=== PATIENT | female | born 1930 | race Caucasian/White ===

== ENCOUNTER 2016-07-17 09:53 | Inpatient (IN) | payer MEDICARE ==
[2016-07-17] MEDS ORDERED: Ondansetron INJ* 2 MG/ML VIAL IV ONE (10:48)
[2016-07-17] MEDS ORDERED: NS 0.9% 1000 ML* 1,000 ML IV SCH ×2 (11:00→13:00)
[2016-07-17 11:10] LABS: Albumin 3.9 g/dL (3.2-5.2); BUN/Creatinine Ratio 27.4 (8-20); C Reactive Protein 115.16 mg/L (< 5.00); Calcium 9.7 mg/dL (8.6-10.3); EGFR African American 35.5 (>60); EGFR Non-African American 27.6 (>60); Globulin 3.3 g/dL (2-4); Potassium 5.2 mmol/L (3.5-5.0); Total Bilirubin 0.8 mg/dL (0.2-1.0); Total Protein 7.2 g/dL (6.4-8.9)
[2016-07-17 11:18] LABS: Troponin I 0.06 ng/mL (<0.04)
--- NOTE | 2016-07-17 11:40 | RAD ---
INDICATION: Cough COMPARISON: February 07, 2016 TECHNIQUE: An AP portable view obtained at 1115 hours is submitted. FINDINGS: Bones/Soft Tissues: There are no acute bony findings. Cardiomediastinal: The cardiomediastinal silhouette is normal. Lungs: There is hyperinflation with chronic interstitial change. There may be minor interstitial congestion. Pleura: There are no pleural effusions. Other: None IMPRESSION: CHRONIC LUNG FINDINGS WITH HYPERINFLATION. SUSPECT MINOR INTERSTITIAL CONGESTION
[2016-07-17 11:57] LABS: TSH (Thyroid Stimulating Horm) 4.14 mcIU/mL (0.34-5.60)
--- NOTE | 2016-07-17 11:59 | RAD ---
INDICATION: Vomiting COMPARISON: CT January 16, 2016 TECHNIQUE: Noncontrast axial source images were obtained from the hemidiaphragms to the symphysis pubis. This examination was ordered using a renal stone protocol which is performed without oral or intravenous contrast and therefore has inherent limitations when used to evaluate other intra-abdominal or intrapelvic pathology. Consider conventional contrast enhanced imaging if clinically indicated. Lung bases: There are chronic appearing interstitial changes with consolidative changes in the medial lung bases right greater than left. Suggest follow-up. There is a calcified mitral annulus. Liver: The liver is normal in size. Noncontrast imaging shows no evidence of a hepatic mass or ductal dilatation. Gallbladder: There are no calcified gallstones. There is no evidence of wall thickening or pericholecystic fluid.. Spleen: The spleen is normal in size. The noncontrast CT appearance is normal. Pancreas: Not adequately evaluated without oral intravenous contrast. Adrenal glands: No gross abnormalities. Kidneys/Bladder: Tiny bilateral nonobstructive renal calculi. Renal vascular calcifications. No CT evidence of hydronephrosis. Noncontrast imaging shows no evidence of a renal mass. The bladder is unremarkable.. Adenopathy: No gross adenopathy but evaluation is severely limited without oral or intravenous contrast. Fluid collections: There are no significant free or localized fluid collections. Vessels: There are advanced atherosclerotic changes of the aorta and iliac vessels. There is no focal aneurysm. The IVC is not well evaluated. Pelvic organs: Hysterectomy. Cystic structure right adnexa measuring 4 cm and appearing unchanged GI tract: Evaluation of the bowel is limited without oral contrast. There is a moderate-sized hiatal hernia. There are scattered diverticula. There is moderate retained stool. There is mild rectal prolapse. There are no additional specific abnormalities. Soft tissues: There is a bowel containing left inguinal hernia without incarceration/granulation. Osseous structures: There are no acute osseous findings. There are advanced degenerative changes with a scoliotic deformity. IMPRESSION: 1. Chronic appearing basilar abnormalities with basilar consolidative changes. Recommend follow-up. 2. Nonobstructive nephrolithiasis 3. 4 cm right adnexal cyst, unchanged 4. Hiatal hernia . Scattered diverticula. Moderate stool. No bowel obstruction. Mild rectal prolapse. 5. Left inguinal hernia, unchanged. 6. Hysterectomy
[2016-07-17 12:11] LABS: Hematocrit 32 % (35-47); Hemoglobin 10.3 g/dl (12.0-16.0); Mean Corpuscular HGB Conc 32 g/dl (31-36); Mean Corpuscular Hemoglobin 31 pg (27-31); Mean Corpuscular Volume 97 fL (80-97); Mean Platelet Volume 8 um3 (7.4-10.4); Red Blood Count 3.35 10^6/ul (4.0-5.4); Red Cell Distribution Width 14 % (10.5-15)
[2016-07-17 12:12] LABS: Add Diff/Slide Review? Slide Review Added; Comments Flag Yes
[2016-07-17] MEDS ORDERED: Piperac/Tazob 3.375 gm in NS* 3.375 GM/100 ML BAG IVPB ONE (12:48)
[2016-07-17] MEDS ORDERED: Ondansetron INJ* 2 MG/ML VIAL IV PRN (12:49)
[2016-07-17] MEDS ORDERED: Al Hydrox/Mg Hydrox/Simet LIQ* 30 ML UDC PO PRN (12:49)
[2016-07-17] MEDS ORDERED: Acetaminophen TAB* 325 MG PO PRN (12:49)
[2016-07-17] MEDS ORDERED: Nystatin OINT* 15 GM TOPICAL PRN (12:50)
[2016-07-17] MEDS: fentaNYL PATCH 12 MCG/HR TRANSDERM SCH (14:57)
[2016-07-17] MEDS: Heparin VIAL(*) 5000 UNITS/ML VIAL (FIVE THOUSAND) SUBCUT SCH ×2 (14:59→20:34)
[2016-07-17] MEDS: Hydrocortisone INJ* 100 MG VIAL IV SCH ×2 (14:59→23:00)
--- NOTE | 2016-07-17 15:01 | ED ---
Abelino Samayoa Auryana, scribed for Gume Wood MD on 07/17/16 at 1135 . Complex/Multi-Sys Presentation - HPI Summary HPI Summary: 85 year old female presents with overall illness. Family reports increased sleepiness and weakness, vomiting x4 starting this morning, diarrhea, and has sharp pains under her left breast ( starting 1 month ago). She states that she normally has a cough and is SOB due to COPD. Per family - patient usually walks with walker but was unable to today. She denies any blood in vomit but unknown if diarrhea had blood. She denies any chest congestion, chest pain or abdominal pain physician visit. PMHx is significant for COPD, skin cancer (on buttock without treatment), appendectomy (childhood), "stomach problems", takes zantac everyday - per family. No history of CHF or any other abdominal surgeries. - History Of Current Complaint Chief Complaint: EDWeakness Time Seen by Provider: 07/17/16 10:40 Hx Obtained From: Patient, Family/Graves Registration Specialist Onset/Duration: Gradual Onset, Still Present Timing: Constant Severity Currently: Mild Severity Initially: Mild Location: Pain At: - per family - sharp pain under the left breast but none on exam Associated Signs And Symptoms: Positive: Weakness, SOB - NML, Vomiting, Diarrhea , Other - increased sleepiness. Negative: Chest Pain - per family - states sharp pain under left breast for the last month, Abdominal Pain - Allergies/Home Medications Allergies/Adverse Reactions: Allergies Allergy/AdvReac Type Severity Reaction Status Date / Time Codeine Allergy Intermediate gets crazy Verified 06/19/16 10:43 Sulfa Drugs Allergy Mild Insomnia Verified 06/19/16 10:43 PMH/Surg Hx/FS Hx/Imm Hx Endocrine/Hematology History: Denies: Hx Diabetes Cardiovascular History: Reports: Hx Hypertension, Hx Syncope - "years ago" Denies: Hx Pacemaker/ICD, Hx Peripheral Vascular Disease Respiratory History: Reports: Hx Asthma, Hx Chronic Bronchitis, Hx Chronic Obstructive Pulmonary Disease (COPD), Hx Pneumonia, Hx Seasonal Allergies GI History: Reports: Hx Gastroesophageal Reflux Disease - ON DAILY MEDS, Hx Hiatal Hernia, Other GI Disorders - internal hemorhoids History: Reports: Other Problems/Disorders - bladder infections in past Denies: Hx Renal Disease Musculoskeletal History: Reports: Hx Arthritis, Hx Back Problems, Hx Osteoporosis, Hx Scoliosis, Other Musculoskeletal History - Torn Meniscus, degenerative disk dx Sensory History: Reports: Hx Contacts or Glasses Denies: Hx Cataracts, Hx Glaucoma, Hx Hearing Aid Opthamlomology History: Reports: Hx Contacts or Glasses Denies: Hx Cataracts, Hx Glaucoma Neurological History: Reports: Other Neuro Impairments/Disorders - PAIN CLINIC PT Denies: Hx Headaches, Hx Seizures, Hx Transient Ischemic Attacks (TIA) Psychiatric History: Denies: Hx Panic Disorder - Cancer History Cancer Type, Location and Year: Recently diagnosed skin cancer near anus Hx Chemotherapy: No Hx Radiation Therapy: No - Surgical History Surgery Procedure, Year, and Place: AGE 16 Appendectomy. 1970s HYSTERECTOMY & Hernia Repair [facility]. 2000s Cararact Right Eye [facility] Hx Anesthesia Reactions: Yes - SLOW TO WAKE UP Infectious Disease History: No Infectious Disease History: Denies: Traveled Outside the [place] in Last 30 Days - Family History Known Family History: Positive: Other - No FMHx of Breast CA - Social History Occupation: Retired Lives: With Family Alcohol Use: Occasionally Hx Substance Use: No Substance Use Type: Reports: None Substance Use Comment - Amount & Last Used: fentanyl and norcp Hx Tobacco Use: Yes Smoking Status (MU): Former Smoker Type: Cigarettes Amount Used/How Often: 1PPD 60+ YEARS Have You Smoked in the Last Year: No Review of Systems Positive: Other - increased sleepiness Eyes: Negative ENT: Negative Cardiovascular: Negative Negative: Chest Pain - none per patient Positive: Shortness Of Breath - nml, Cough - nml Positive: Vomiting, Diarrhea. Negative: Abdominal Pain Genitourinary: Negative Musculoskeletal: Negative Skin: Negative Positive: Weakness - increased Psychological: Normal All Other Systems Reviewed And Are Negative: Yes Physical Exam Triage Information Reviewed: Yes Vital Signs On Initial Exam: Initial Vitals Temp Pulse Resp BP Pulse Ox 99.8 F 109 18 101/49 86 07/17/16 10:00 07/17/16 10:00 07/17/16 10:00 07/17/16 10:00 07/17/16 10:00 Vital Signs Reviewed: Yes Appearance: Positive: Well-Appearing, No Pain Distress Skin: Positive: Warm, Skin Color Reflects Adequate Perfusion, Dry Head/Face: Positive: Normal Head/Face Inspection Eyes: Positive: EOMI, SILVIA ENT: Positive: Normal ENT inspection Neck: Positive: Supple, Nontender Respiratory/Lung Sounds: Positive: Breath Sounds Present, Rhonchi Cardiovascular: Positive: Tachycardia Abdomen Description: Positive: Nontender - non tenderness to palpation, Soft Bowel Sounds: Positive: Present, Hypoactive Musculoskeletal: Positive: Normal, Strength/ROM Intact, Other - no calf pain or tenderness. Negative: Edema Left, Edema Right Neurological: Positive: Normal, Sensory/Motor Intact, Alert, Oriented to Person Place, Time Psychiatric: Positive: Normal, Affect/Mood Appropriate - Rawson Coma Scale Coma Scale Total: 15 Diagnostics - Vital Signs Vital Signs Temp Pulse Resp BP Pulse Ox 07/17/16 10:19 109 92 07/17/16 10:18 104/45 07/17/16 10:00 99.8 F 109 18 101/49 86 - Laboratory Lab Results: Lab Results 07/17/16 07/17/16 07/17/16 Range/Units 10:35 10:35 10:35 WBC 25.0 H (3.5-10.8) 10^3/ul RBC 3.35 L (4.0-5.4) 10^6/ul Hgb 10.3 L (12.0-16.0) g/dl Hct 32 L (35-47) % MCV 97 (80-97) fL MCH 31 (27-31) pg MCHC 32 (31-36) g/dl RDW 14 (10.5-15) % Plt Count 291 (150-450) 10^3/ul MPV 8 (7.4-10.4) um3 Neut % (Auto) 94.7 H (38-83) % Lymph % (Auto) 1.4 L (25-47) % Jerome % (Auto) 3.8 (1-9) % Eos % (Auto) 0 (0-6) % Baso % (Auto) 0.1 (0-2) % Absolute Neuts (auto) 23.6 H (1.5-7.7) 10^3/ul Absolute Lymphs (auto) 0.3 L (1.0-4.8) 10^3/ul Absolute Monos (auto) 1.0 H (0-0.8) 10^3/ul Absolute Eos (auto) 0 (0-0.6) 10^3/ul Absolute Basos (auto) 0 (0-0.2) 10^3/ul Absolute Nucleated RBC 0 10^3/ul Nucleated RBC % 0 INR (Anticoag Therapy) 0.84 L (0.89-1.11) APTT 21.2 L (26.0-36.3) seconds Sodium 137 (133-145) mmol/L Potassium 5.2 H (3.5-5.0) mmol/L Chloride 99 L (101-111) mmol/L Carbon Dioxide 31 (22-32) mmol/L Anion Gap 7 (2-11) mmol/L BUN 48 H (6-24) mg/dL Creatinine 1.75 H (0.51-0.95) mg/dL Est GFR ( Amer) 35.5 (>60) Est GFR (Non-Af Amer) 27.6 (>60) BUN/Creatinine Ratio 27.4 H (8-20) Glucose 108 H (70-100) mg/dL Lactic Acid (0.5-2.0) mmol/L Calcium 9.7 (8.6-10.3) mg/dL Magnesium 2.0 (1.9-2.7) mg/dL Total Bilirubin 0.80 (0.2-1.0) mg/dL AST 25 (13-39) U/L ALT 13 (7-52) U/L Alkaline Phosphatase 70 (34-104) U/L Total Creatine Kinase 108 (10-223) U/L CK-MB (CK-2) 3.6 (0.6-6.3) ng/mL Troponin I 0.06 H* (<0.04) ng/mL C-Reactive Protein 115.16 H (< 5.00) mg/L Total Protein 7.2 (6.4-8.9) g/dL Albumin 3.9 (3.2-5.2) g/dL Globulin 3.3 (2-4) g/dL Albumin/Globulin Ratio 1.2 (1-3) Lipase 22 (11.0-82.0) U/L TSH 4.14 (0.34-5.60) mcIU/mL 07/17/16 Range/Units 10:35 WBC (3.5-10.8) 10^3/ul RBC (4.0-5.4) 10^6/ul Hgb (12.0-16.0) g/dl Hct (35-47) % MCV (80-97) fL MCH (27-31) pg MCHC (31-36) g/dl RDW (10.5-15) % Plt Count (150-450) 10^3/ul MPV (7.4-10.4) um3 Neut % (Auto) (38-83) % Lymph % (Auto) (25-47) % Jerome % (Auto) (1-9) % Eos % (Auto) (0-6) % Baso % (Auto) (0-2) % Absolute Neuts (auto) (1.5-7.7) 10^3/ul Absolute Lymphs (auto) (1.0-4.8) 10^3/ul Absolute Monos (auto) (0-0.8) 10^3/ul Absolute Eos (auto) (0-0.6) 10^3/ul Absolute Basos (auto) (0-0.2) 10^3/ul Absolute Nucleated RBC 10^3/ul Nucleated RBC % INR (Anticoag Therapy) (0.89-1.11) APTT (26.0-36.3) seconds Sodium (133-145) mmol/L Potassium (3.5-5.0) mmol/L Chloride (101-111) mmol/L Carbon Dioxide (22-32) mmol/L Anion Gap (2-11) mmol/L BUN (6-24) mg/dL Creatinine (0.51-0.95) mg/dL Est GFR ( Amer) (>60) Est GFR (Non-Af Amer) (>60) BUN/Creatinine Ratio (8-20) Glucose (70-100) mg/dL Lactic Acid 1.2 (0.5-2.0) mmol/L Calcium (8.6-10.3) mg/dL Magnesium (1.9-2.7) mg/dL Total Bilirubin (0.2-1.0) mg/dL AST (13-39) U/L ALT (7-52) U/L Alkaline Phosphatase (34-104) U/L Total Creatine Kinase (10-223) U/L CK-MB (CK-2) (0.6-6.3) ng/mL Troponin I (<0.04) ng/mL C-Reactive Protein (< 5.00) mg/L Total Protein (6.4-8.9) g/dL Albumin (3.2-5.2) g/dL Globulin (2-4) g/dL Albumin/Globulin Ratio (1-3) Lipase (11.0-82.0) U/L TSH (0.34-5.60) mcIU/mL Result Diagrams: 07/17/16 10:35 07/17/16 10:35 Lab Statement: Any lab studies that have been ordered have been reviewed, and results considered in the medical decision making process. - Radiology CXR Xray Interpretation: Positive (See Comments) - IMPRESSION: CHRONIC LUNG FINDINGS WITH HYPERINFLATION. SUSPECT MINOR INTERSTITIAL CONGESTION Radiology Interpretation Completed By: Radiologist - CT ABD/PEL CT Interpretation: Positive (See Comments) - IMPRESSION: 1. Chronic appearing basilar abnormalities with basilar consolidative changes. Recommend follow-up. 2. Nonobstructive nephrolithiasis 3. 4 cm right adnexal cyst, unchanged 4. Hiatal hernia . Scattered diverticula. Moderate stool. No bowel obstruction. Mild rectal prolapse. 5. Left inguinal hernia, unchanged. 6. Hysterectomy CT Interpretation Completed By: Radiologist - EKG 11:56 EKG Interpretation: SINUS TACHYCARDIA @ 99 BPM, NML ST SEGMENT, NO ECTOPY Complex Multi-Symp Course/Dx Course Of Treatment: NO CRITICAL CARE TIME Assessment/Plan: ADMIT HOSPITALIST STABLE - Diagnoses Provider Diagnoses: Vomiting, Weakness Discharge - Discharge Plan Condition: Stable Disposition: ADMITTED TO [facility] documentation as recorded by the Abelino campoverde Auryana accurately reflects the service I personally performed and the decisions made by me, Gume Wood MD.
[2016-07-17] MEDS: Gabapentin CAP(*) 300 MG PO SCH ×3 (15:05→20:33)
--- NOTE | 2016-07-17 19:43 | HP ---
ADDENDUM NOW INCLUDED ON THIS REPORT HISTORY AND PHYSICAL: DATE OF ADMISSION: 07/17/16 CHIEF COMPLAINT: Lethargy. HISTORY OF PRESENT ILLNESS: Cary Contreras is an 85-year-old female who lives with her family and who was noted today to be lethargic. Patient apparently had nausea and vomiting yesterday as well as diarrhea. Patient herself right now is lethargic. She drifts easily to sleep in between questioning, but what I was able to obtain from her is the information that she vomited approximately 4 times and she had multiple episodes of diarrhea. She denies abdominal pain. She presented to the emergency department and she was noted to have marked leukocytosis. CT of the abdomen and pelvis did not show any acute abnormalities. She, according to me, requires a higher level of oxygen and she usually is at 3 L of oxygen at home. The suspicion is that the patient aspirated. PAST MEDICAL HISTORY: Obtained mostly from patient's medical records include: 1. COPD, oxygen dependent at 3 L. 2. Chronic kidney disease stage 3. 3. Chronic pain. 4. Hypertension. 5. Dyslipidemia. 6. Restless leg syndrome. 7. Total abdominal hysterectomy. 8. History of inguinal hernia. MEDICATIONS: At home include: 1. Aspirin 81 mg daily. 2. Combivent Respimat 1 inhalation 4 times a day. 3. Albuterol on a p.r.n. basis inhaler. 4. [place] 5/325 mg 1 tablet every 6 hours p.r.n. 5. Gabapentin 300 mg 3 times a day and 600 mg at bedtime. 6. Furosemide 20 mg daily. 7. Ferrous sulfate 325 mg daily. 8. Calcium and vitamin D 1 tablet b.i.d. 9. Budesonide 0.5 mg inhalation b.i.d. 10. Prednisone 10 mg daily. 11. Fentanyl patch 12 mcg every 72 hours. 12. Kenalog 0.1% cream 1 application b.i.d. p.r.n. 13. Nystatin ointment on a p.r.n. basis. 14. Ensure 1 can daily. 15. Methylcobalamin 1000 mcg daily. 16. Lisinopril 20 mg daily. 17. Atrovent nebulizers on a p.r.n. basis. FAMILY HISTORY: Positive for heart disease and cancer. Further patient could not specify. She was still lethargic to give me detailed information. SOCIAL HISTORY: Patient denies any tobacco, alcohol, or drug use. She lives with her daughter, Rita Hurley, who is a surrogate. REVIEW OF SYSTEMS: Very limited from this patient who is very lethargic. Patient denies abdominal pain. Stated that her breathing is as usual, but she is currently on 5 L of oxygen via nasal cannula. She denies any pain. Remaining 14 systems were reviewed with the patient, but patient is a very poor historian due to her lethargy and were otherwise negative. PHYSICAL EXAMINATION GENERAL: Patient is an 85-year-old female who appears chronically ill and who is in no acute distress. The patient is oriented to self and place. She remembers her date of and she knows that her birthday is coming soon, but she is unable to give me today's date. The patient's falls asleep in mid sentence. VITAL SIGNS: Blood pressure 104/45, heart rate of 96 and regular, respiratory rate 21, oxygen saturation 95% on 5 L of oxygen via nasal cannula, temperature 99.8. HEENT: Head atraumatic, normocephalic. Eyes: Pupils equal, reactive to light and accommodation. Oropharynx: Clear. Mucosa moist. NECK: Supple. No JVD. No bruit. RESPIRATORY: Rhonchi at bilateral bases, left more than right. CARDIOVASCULAR: Regular rate and rhythm. No murmur. ABDOMEN: Soft, nontender. Bowel sounds present in all 4 quadrants. EXTREMITIES: There is no edema. Pulses +2 bilaterally. No clubbing, cyanosis. NEUROLOGIC EVALUATION: Grossly nonfocal. The patient's speech is clear. Cranial nerves II through XII grossly intact. Motor strength is 5/5 bilaterally. PSYCHIATRIC EVALUATION: Patient is lethargic. Poor historian. DIAGNOSTIC STUDIES/LABORATORY DATA: White blood cell count of 25,000, hemoglobin of 10.3, hematocrit of 32, and platelets of 291. Sodium is 137, potassium 4.2, chloride 99, carbon dioxide 31. BUN 48, creatinine 1.75, which is consistent with prior. Liver functions are unremarkable. Troponin of 0.06, also consistent with prior. Patient's C-reactive protein is 115. TSH was 4.1. Urinalysis is pending at the time of dictation. CT of abdomen and pelvis was read by the radiologist as "nonobstructive nephrolithiasis. A 4-cm right adnexal cyst unchanged. Hiatal hernia. Scattered diverticula. Moderate stool. No bowel obstruction. Mild rectal prolapse. Left inguinal hernia unchanged. Hysterectomy." Portable chest x-ray, impression: "Chronic lung findings with hyperinflation. Suspect minor interstitial congestion." EKG shows sinus tachycardia with with no significant ST changes. ST flattening in septal leads. ASSESSMENT AND PLAN: Patient is septic and most likely source of sepsis is suspected aspiration. The patient's chest x-ray shows only mild congestion, but she has rhonchi on exam. I suspect she aspirated when she was vomiting. Currently, she actually had a brief swallow eval by the bedside and she is swallowing fine. At this point, patient is going to be placed on inpatient medical floor. She is going to be hydrated with intravenous fluids and treated for her sepsis due to aspiration pneumonitis with Zosyn. Patient's altered mental status is most likely related to her sepsis. In regards to patient's COPD, does not appear in exacerbation. I believe that her worsening hypoxemia is due to sepsis. The patient's baseline is 3 L of oxygen daily. In regards to patient's chronic pain, I will continue her gabapentin and [place] on a p.r.n. basis. Patient is on prednisone chronically, most likely due to her COPD. Due to her sepsis, I will place her on stress-dose steroids. She is going to be started on hydrochlorothiazide at 50 mg IV every 8 hours and omeprazole for GI prophylaxis while on IV steroids. For DVT prophylaxis, patient is going to be placed on heparin subcutaneously. Code status. The patient's code status is full. TIME SPENT: Approximately 70 minutes was spent on admission of this patient, more than half the time was spent [id number] with the patient during history and physical taking. ADDENDUM: Please note that the patient's troponin is 0.06. The patient has a history of chronic kidney disease and she has had positive troponins dating back to March of 2015. I believe this indeterminate troponin today is consistent with her prior report. Her EKG does not show an acute ischemia. I do not think there was an indication for clinical research monitor in this patient, who is entirely asymptomatic and pain free. CC: Dr. Abernathy* [id number]/[facility] #: [id number]/[facility] #: [id number] VERENA
[2016-07-17] MEDS: Budesonide NEB* 0.5 MG/2 ML NEB.SOLN INH SCH (20:01)
[2016-07-17] MEDS ORDERED: SODIUM CHLORIDE 0.9% IV ONE (20:15)
--- NOTE | 2016-07-17 20:15 | HP ---
HISTORY AND PHYSICAL: * ADDENDUM: Please note that the patient's troponin is 0.06. The patient has a history of chronic kidney disease and she has had positive troponins dating back to March of 2015. I believe this indeterminate troponin today is consistent with her prior report. Her EKG does not show an acute ischemia. I do not think there was an indication for teletypesetter monitor in this patient, who is entirely asymptomatic and pain free. [id number]/[facility] #: [id number] VERENA
[2016-07-17] MEDS: fentaNYL Patch Check Q Shift 1 NOTE SCH (20:34)
[2016-07-17] MEDS: Piperac/Tazob 3.375 gm in NS* 3.375 GM/100 ML BAG IVPB SCH (20:57)
[2016-07-17] MEDS: NS 0.9% 1000 ML* 1,000 ML IV SCH (21:02)
[2016-07-18 01:33] LABS: Urine Bacteria 1+ (Absent); Urine Bilirubin Negative (Negative); Urine Glucose Negative (Negative); Urine Nitrite Negative (Negative)
[2016-07-18] MEDS: NS 0.9% 1000 ML* 1,000 ML IV SCH ×2 (03:45→21:15)
[2016-07-18] MEDS: Omeprazole CAP* 20 MG PO SCH (06:20)
[2016-07-18] MEDS: Hydrocortisone INJ* 100 MG VIAL IV SCH ×3 (06:21→22:20)
[2016-07-18] MEDS: Heparin VIAL(*) 5000 UNITS/ML VIAL (FIVE THOUSAND) SUBCUT SCH ×3 (06:21→21:27)
[2016-07-18] MEDS: fentaNYL Patch Check Q Shift 1 NOTE SCH ×2 (07:10→21:25)
[2016-07-18] MEDS: Piperac/Tazob 3.375 gm in NS* 3.375 GM/100 ML BAG IVPB SCH ×2 (07:46→21:17)
[2016-07-18] MEDS: Gabapentin CAP(*) 300 MG PO SCH ×4 (07:47→21:24)
[2016-07-18] MEDS: Aspirin EC Low Dose* 81 MG TAB.EC PO SCH (07:47)
[2016-07-18 08:06] LABS: Hematocrit 27 % (35-47); Hemoglobin 8.4 g/dl (12.0-16.0); Mean Corpuscular HGB Conc 32 g/dl (31-36); Mean Corpuscular Hemoglobin 31 pg (27-31); Mean Corpuscular Volume 98 fL (80-97); Mean Platelet Volume 8 um3 (7.4-10.4); Red Blood Count 2.71 10^6/ul (4.0-5.4); Red Cell Distribution Width 14 % (10.5-15); White Blood Count 18.3 10^3/ul (3.5-10.8)
[2016-07-18 08:23] LABS: BUN/Creatinine Ratio 27.9 (8-20); Calcium 8.6 mg/dL (8.6-10.3)
[2016-07-18] MEDS: Budesonide NEB* 0.5 MG/2 ML NEB.SOLN INH SCH ×2 (08:23→20:04)
--- NOTE | 2016-07-18 11:19 | PN ---
Subjective Date of Service: 07/18/16 Interval History: Patient seen and examined at bedside. Pt states that she is feeling better today. Denies fever, chills, shortness of breath, chest discomfort, N/V/D. Family History: Unchanged from Admission Social History: Unchanged from Admission Past Medical History: Unchanged from Admission Objective Active Medications: Acetaminophen (Tylenol Tab*) 650 mg PO Q4H PRN Reason: FEVER/PAIN Hydrocodone Bitart/Acetaminophen ([place] 5-325 Tab*) 1 tab PO Q6H PRN Reason: PAIN Al Hydrox/Mg Hydrox/Simethicone (Maalox Plus*) 30 ml PO Q6H PRN Reason: INDIGESTION Albuterol/Ipratropium (Duoneb (Albuterol 2.5 Mg/Ipratropium 0.5 Mg)) 1 neb INH [id number] AWAKE PRN Reason: sob/wheexing Aspirin (Aspirin Ec Low Dose*) 81 mg PO DAILY [facility] Budesonide (Pulmicort Neb*) 0.5 mg INH RT.BID [facility] Fentanyl (Duragesic Patch 12 Mcg/Hr *) 12 mcg TRANSDERM Q72H [facility] Gabapentin (Neurontin Cap(*)) 300 mg PO TID [facility] Gabapentin (Neurontin Cap(*)) 600 mg PO BEDTIME [facility] Heparin Sodium (Porcine) (Heparin Vial(*)) 5,000 units SUBCUT Q8HR [facility] Hydrocortisone Sodium Succinate (Solu-Cortef*) 50 mg IV Q8H [facility] Piperacillin Sod/Tazobactam Sod (Zosyn 3.375 Gm In Ns Premix*) 3.375 gm in 100 mls @ 25 mls/hr IVPB Q12H [facility] Sodium Chloride (Ns 0.9% 1000 Ml*) 1,000 mls @ 150 mls/hr IV PER RATE [facility] Nystatin (Nystatin Oint*) 1 applic TOPICAL TID PRN Reason: RASH Omeprazole (Prilosec Cap*) 20 mg PO 0600 [facility] Ondansetron HCl (Zofran Inj*) 4 mg IV Q4H PRN Reason: NAUSEA/VOMITING Pharmacy Profile Note (Fentanyl Patch Check Q Shift) 1 note N/A 0700,1900 [facility] Vital Signs 07/17/16 07/17/16 07/17/16 13:06 13:54 14:57 Temperature 98.8 F 100.3 F Pulse Rate 98 103 Respiratory 21 16 16 Rate Blood Pressure 104/50 115/40 (mmHg) O2 Sat by Pulse 100 Oximetry 07/17/16 07/17/16 07/17/16 15:05 15:38 16:19 Temperature 100.2 F 100.3 F Pulse Rate 95 103 Respiratory 20 16 16 Rate Blood Pressure 105/42 115/40 (mmHg) O2 Sat by Pulse 98 100 Oximetry 07/17/16 07/17/16 07/17/16 17:05 19:54 20:00 Temperature 98.5 F Pulse Rate 84 Respiratory 18 17 20 Rate Blood Pressure 79/30 (mmHg) O2 Sat by Pulse 98 Oximetry 07/17/16 07/17/16 07/17/16 20:06 20:29 20:33 Temperature Pulse Rate 79 Respiratory 18 18 Rate Blood Pressure 86/38 (mmHg) O2 Sat by Pulse 93 Oximetry 07/17/16 07/17/16 07/17/16 21:17 22:29 22:33 Temperature Pulse Rate Respiratory 18 18 Rate Blood Pressure 100/40 (mmHg) O2 Sat by Pulse Oximetry 07/17/16 07/18/16 07/18/16 23:20 03:13 07:31 Temperature 98.2 F 97.9 F 97.5 F Pulse Rate 85 68 79 Respiratory 18 16 18 Rate Blood Pressure 90/42 83/44 93/50 (mmHg) O2 Sat by Pulse 97 97 100 Oximetry 07/18/16 07/18/16 07/18/16 07:47 08:00 08:24 Temperature Pulse Rate 79 Respiratory 18 18 20 Rate Blood Pressure (mmHg) O2 Sat by Pulse 99 Oximetry Oxygen Devices in Use Now: Nasal Cannula - 5L Appearance: NAD, laying in bed Eyes: No Scleral Icterus Ears/Nose/Mouth/Throat: Mucous Membranes Moist Respiratory: Symmetrical Chest Expansion and Respiratory Effort, - - Lung sounds with Rhonchi bilateral Cardiovascular: NL Sounds; No Murmurs; No JVD, RRR Abdominal: NL Sounds; No Tenderness; No Distention Extremities: No Edema Skin: No Rash or Ulcers Neurological: Alert and Oriented x 3, NL Muscle Strength and Tone Lines/Tubes/Other Access: Clean, Dry and Intact Peripheral IV - site benign Nutrition: Taking PO's Result Diagrams: 07/18/16 07:44 07/18/16 07:44 Additional Lab and Data: Assess/Plan/Problems-Billing Assessment: Ms. Contreras is a 85 yo female with PMH significant for COPD on 3L O2 at home, CKD, chronic pain, HTN, HLD and RLS who presented to the emergency room with complaints of nausea and vomiting, and was found to have possible aspiration pneumonia. - Patient Problems (1) Sepsis Comment: - Suspect related to pneumonia and/or UTI - Meeting sepsis criteria on admission with SIRS criteria (tachycardia and leukocytosis) and SOFA score 3 (low MAP, AMS and elevated creatinine) - Meeting sepsis criteria with SIRS (tachycardia and leukocytosis) SOFA score 3 (leukocytosis and low MAP) - Urine culture pending - Continue IV ABX and IV fluids (2) Pneumonia Code(s): J18.9 - PNEUMONIA, UNSPECIFIED ORGANISM SNOMED Code(s): 387614187 Comment: - Suspect possible aspiration pneumonitis vs PNA - Now afebrile and leukocytosis improving - Continue IV Zosyn (3) UTI (urinary tract infection) Comment: - Urine culture pending - Now afebrile and leukocytosis improving - Continue Zosyn (4) CKD (chronic kidney disease) Code(s): N18.9 - CHRONIC KIDNEY DISEASE, UNSPECIFIED SNOMED Code(s): 751155258 Comment: - Creatinine elevated - Acute on chronic kidney injury - Will continue IVF and recheck BMP in the morning (5) HTN (hypertension) Code(s): I10 - ESSENTIAL (PRIMARY) HYPERTENSION SNOMED Code(s): 04458790 Comment: - Hypotensive - Continue to hold Lisinopril (6) Chronic pain Code(s): G89.29 - OTHER CHRONIC PAIN SNOMED Code(s): 14023946 Comment: - Continue her home dose fentanyl patch. - She [facility]. (7) Restless legs syndrome (RLS) Comment: - Stable (8) COPD (chronic obstructive pulmonary disease) Code(s): J44.9 - CHRONIC OBSTRUCTIVE PULMONARY DISEASE, UNSPECIFIED SNOMED Code(s): 80829663 Comment: - Does not appear to have an exacerbation - Oxygen at 3L at home, on 5 L here - Suspect increased O2 needs are due to sepsis - Continue steroids at stress dose (9) GERD (gastroesophageal reflux disease) Code(s): K21.9 - GASTRO-ESOPHAGEAL REFLUX DISEASE WITHOUT ESOPHAGITIS SNOMED Code(s): 397495732 Comment: - Continue omeprazole (10) DVT prophylaxis Code(s): QYU0681 - SNOMED Code(s): 613205319 Comment: - SQ heparin (11) Full code status Code(s): Z78.9 - OTHER SPECIFIED HEALTH STATUS SNOMED Code(s): 742880772 Status and Disposition: Inpatient. Discharge to home when medically stable.
[2016-07-19 05:21] LABS: Hematocrit 27 % (35-47); Hemoglobin 8.6 g/dl (12.0-16.0); Mean Corpuscular HGB Conc 32 g/dl (31-36); Mean Corpuscular Hemoglobin 31 pg (27-31); Mean Corpuscular Volume 98 fL (80-97); Mean Platelet Volume 8 um3 (7.4-10.4); Red Blood Count 2.75 10^6/ul (4.0-5.4); Red Cell Distribution Width 13 % (10.5-15); White Blood Count 12.1 10^3/ul (3.5-10.8)
[2016-07-19 05:25] LABS: Add Diff/Slide Review? Slide Review Added; Comments Flag Yes
[2016-07-19 05:35] LABS: BUN/Creatinine Ratio 29.9 (8-20); Calcium 8.6 mg/dL (8.6-10.3); EGFR African American 24.6 (>60); EGFR Non-African American 19.1 (>60); Potassium 4.8 mmol/L (3.5-5.0)
[2016-07-19] MEDS: Hydrocortisone INJ* 100 MG VIAL IV SCH ×3 (06:30→21:18)
[2016-07-19] MEDS: Omeprazole CAP* 20 MG PO SCH (06:32)
[2016-07-19] MEDS: Heparin VIAL(*) 5000 UNITS/ML VIAL (FIVE THOUSAND) SUBCUT SCH ×3 (06:33→20:32)
[2016-07-19] MEDS: Gabapentin CAP(*) 300 MG PO SCH ×4 (07:36→20:30)
[2016-07-19] MEDS: Piperac/Tazob 3.375 gm in NS* 3.375 GM/100 ML BAG IVPB SCH ×2 (07:36→21:18)
[2016-07-19] MEDS: Aspirin EC Low Dose* 81 MG TAB.EC PO SCH (07:36)
[2016-07-19] MEDS: fentaNYL Patch Check Q Shift 1 NOTE SCH ×2 (07:42→19:30)
[2016-07-19] MEDS: Budesonide NEB* 0.5 MG/2 ML NEB.SOLN INH SCH ×2 (07:45→19:34)
--- NOTE | 2016-07-19 07:47 | PN ---
Subjective Date of Service: 07/19/16 Interval History: Patient seen and examined at bedside. Denies fever/chills, CP, n/v. States her breathing is better but she gets winded easily. Reports feeling fatigued but "feels better overall." No other acute complaints. Family History: Unchanged from Admission Social History: Unchanged from Admission Past Medical History: Unchanged from Admission Objective Active Medications: Acetaminophen (Tylenol Tab*) 650 mg PO Q4H PRN PRN Reason: FEVER/PAIN Hydrocodone Bitart/Acetaminophen ([place] 5-325 Tab*) 1 tab PO Q6H PRN PRN Reason: PAIN Al Hydrox/Mg Hydrox/Simethicone (Maalox Plus*) 30 ml PO Q6H PRN PRN Reason: INDIGESTION Albuterol/Ipratropium (Duoneb (Albuterol 2.5 Mg/Ipratropium 0.5 Mg)) 1 neb INH [id number] AWAKE PRN PRN Reason: sob/wheexing Aspirin (Aspirin Ec Low Dose*) 81 mg PO DAILY [facility] Last Admin: 07/19/16 07:36 Dose: 81 mg Budesonide (Pulmicort Neb*) 0.5 mg INH RT.BID [facility] Last Admin: 07/18/16 20:04 Dose: 0.5 mg Fentanyl (Duragesic Patch 12 Mcg/Hr *) 12 mcg TRANSDERM Q72H [facility] Last Admin: 07/17/16 14:57 Dose: 12 mcg Gabapentin (Neurontin Cap(*)) 300 mg PO TID [facility] Last Admin: 07/19/16 07:36 Dose: 300 mg Gabapentin (Neurontin Cap(*)) 600 mg PO BEDTIME [facility] Last Admin: 07/18/16 21:23 Dose: 600 mg Heparin Sodium (Porcine) (Heparin Vial(*)) 5,000 units SUBCUT Q8HR [facility] Last Admin: 07/19/16 06:33 Dose: 5,000 units Hydrocortisone Sodium Succinate (Solu-Cortef*) 50 mg IV Q8H [facility] Last Admin: 07/19/16 06:30 Dose: 50 mg Piperacillin Sod/Tazobactam Sod (Zosyn 3.375 Gm In Ns Premix*) 3.375 gm in 100 mls @ 25 mls/hr IVPB Q12H [facility] Last Admin: 07/19/16 07:36 Dose: 25 mls/hr Sodium Chloride (Ns 0.9% 1000 Ml*) 1,000 mls @ 150 mls/hr IV PER RATE [facility] Last Admin: 07/18/16 21:15 Dose: 150 mls/hr Nystatin (Nystatin Oint*) 1 applic TOPICAL TID PRN PRN Reason: RASH Omeprazole (Prilosec Cap*) 20 mg PO 0600 [facility] Last Admin: 07/19/16 06:32 Dose: 20 mg Ondansetron HCl (Zofran Inj*) 4 mg IV Q4H PRN PRN Reason: NAUSEA/VOMITING Pharmacy Profile Note (Fentanyl Patch Check Q Shift) 1 note N/A 0700,1900 [facility] Last Admin: 07/19/16 07:42 Dose: 1 note Vital Signs 07/18/16 07/18/16 07/18/16 08:00 08:24 09:47 Temperature Pulse Rate 79 Respiratory 18 20 18 Rate Blood Pressure (mmHg) O2 Sat by Pulse 99 Oximetry 07/18/16 07/18/16 07/18/16 11:24 14:44 15:32 Temperature 97.9 F Pulse Rate 72 106 Respiratory 18 18 Rate Blood Pressure 78/36 99/50 (mmHg) O2 Sat by Pulse 97 74 Oximetry 07/18/16 07/18/16 07/18/16 16:44 19:48 20:00 Temperature 97.6 F Pulse Rate 79 Respiratory 16 20 Rate Blood Pressure 96/54 (mmHg) O2 Sat by Pulse 100 Oximetry 07/18/16 07/18/16 07/18/16 20:06 21:23 21:24 Temperature Pulse Rate 71 Respiratory 16 20 20 Rate Blood Pressure (mmHg) O2 Sat by Pulse 99 Oximetry 07/18/16 07/18/16 07/18/16 23:18 23:23 23:24 Temperature 97.3 F Pulse Rate 67 Respiratory 17 16 16 Rate Blood Pressure 111/37 (mmHg) O2 Sat by Pulse 100 Oximetry 07/19/16 07:36 Temperature Pulse Rate Respiratory 16 Rate Blood Pressure (mmHg) O2 Sat by Pulse Oximetry Oxygen Devices in Use Now: Nasal Cannula - 5L Appearance: Elderly female, sitting up in bed, mildly tachypneic Eyes: PERRLA Ears/Nose/Mouth/Throat: Mucous Membranes Moist Neck: NL Appearance and Movements; NL JVP Respiratory: Symmetrical Chest Expansion and Respiratory Effort, - - coarse breath sounds, fair aeration throughout Cardiovascular: NL Sounds; No Murmurs; No JVD, RRR Abdominal: NL Sounds; No Tenderness; No Distention Extremities: - - +1 BLE edema Skin: No Rash or Ulcers Neurological: Alert and Oriented x 3, NL Muscle Strength and Tone Lines/Tubes/Other Access: Clean, Dry and Intact Peripheral IV Nutrition: Taking PO's Result Diagrams: 07/19/16 04:51 07/19/16 04:51 Additional Lab and Data: Assess/Plan/Problems-Billing Assessment: Ms. Contreras is a 85 yo female with PMH significant for COPD on 3L O2 at home, CKD, chronic pain, HTN, HLD and RLS who presented to the emergency room with complaints of nausea and vomiting, and was found to have possible aspiration pneumonia. - Patient Problems (1) Sepsis Comment: Source likely pneumonia Meets sepsis criteria on admission with SIRS criteria (tachycardia and leukocytosis) and SOFA score 3 (low MAP, AMS and elevated creatinine). Continue IV antibiotics and IVF. Urine culture negative for significant growth. (2) Pneumonia Current Visit: Yes Status: Acute Code(s): J18.9 - PNEUMONIA, UNSPECIFIED ORGANISM SNOMED Code(s): 724244701 Comment: Suspect possible aspiration pneumonitis vs PNA Now afebrile and leukocytosis improving. Still requiring higher levels of supplemental O2 (currently on 5L but uses 3L at home). Continue IV Zosyn. (3) CKD (chronic kidney disease) Current Visit: No Status: Acute Code(s): N18.9 - CHRONIC KIDNEY DISEASE, UNSPECIFIED SNOMED Code(s): 520564225 Comment: Creatinine elevated. Continue to trend. Acute on chronic kidney injury Continue IVF (4) HTN (hypertension) Code(s): I10 - ESSENTIAL (PRIMARY) HYPERTENSION Comment: Hypotension improving, normotensive this AM. Continue to hold lisinopril. (5) Chronic pain Code(s): G89.29 - OTHER CHRONIC PAIN Comment: Continue her home dose fentanyl patch. She [facility] to the [facility]. (6) Restless legs syndrome (RLS) Onset Date: 11/09/13 Comment: Stable. (7) COPD (chronic obstructive pulmonary disease) Code(s): J44.9 - CHRONIC OBSTRUCTIVE PULMONARY DISEASE, UNSPECIFIED Comment: Does not appear to have an exacerbation Oxygen at 3L at home, on 5 L here Suspect increased O2 needs are due to sepsis Continue steroids at stress dose (8) GERD (gastroesophageal reflux disease) Code(s): K21.9 - GASTRO-ESOPHAGEAL REFLUX DISEASE WITHOUT ESOPHAGITIS Comment : Continue omeprazole. (9) DVT prophylaxis Code(s): OQR1168 - Comment: SQ heparin (10) Full code status Code(s): Z78.9 - OTHER SPECIFIED HEALTH STATUS Status and Disposition: Inpatient. Discharge to home when medically stable.
[2016-07-19] MEDS: Albuterol/Ipratropium NEB.SOL* Albuterol 2.5 MG/Ipratropium 0.5 MG 3 ML INH PRN (12:43)
[2016-07-19] MEDS: HYDROcodone/ACETAMIN 5-325 MG* 1 TAB PO PRN (20:31)
[2016-07-20] MEDS: NS 0.9% 1000 ML* 1,000 ML IV SCH ×2 (02:30→14:56)
[2016-07-20] MEDS: Omeprazole CAP* 20 MG PO SCH (06:30)
[2016-07-20] MEDS: Hydrocortisone INJ* 100 MG VIAL IV SCH ×2 (06:30→14:48)
[2016-07-20] MEDS: Heparin VIAL(*) 5000 UNITS/ML VIAL (FIVE THOUSAND) SUBCUT SCH ×3 (06:31→21:39)
[2016-07-20] MEDS: fentaNYL Patch Check Q Shift 1 NOTE SCH ×2 (06:39→19:12)
[2016-07-20] MEDS: Budesonide NEB* 0.5 MG/2 ML NEB.SOLN INH SCH ×2 (08:00→20:06)
[2016-07-20] MEDS: Piperac/Tazob 3.375 gm in NS* 3.375 GM/100 ML BAG IVPB SCH ×2 (08:15→20:09)
[2016-07-20] MEDS: Gabapentin CAP(*) 300 MG PO SCH ×4 (08:15→20:27)
[2016-07-20] MEDS: Aspirin EC Low Dose* 81 MG TAB.EC PO SCH (08:15)
[2016-07-20 08:24] LABS: Hematocrit 28 % (35-47); Mean Corpuscular HGB Conc 32 g/dl (31-36); Mean Corpuscular Hemoglobin 31 pg (27-31); Mean Corpuscular Volume 96 fL (80-97); Mean Platelet Volume 8 um3 (7.4-10.4); Red Cell Distribution Width 13 % (10.5-15); White Blood Count 8.5 10^3/ul (3.5-10.8)
[2016-07-20 09:38] LABS: BUN/Creatinine Ratio 33.2 (8-20); Calcium 8.3 mg/dL (8.6-10.3); EGFR African American 27.7 (>60); EGFR Non-African American 21.6 (>60); Potassium 4.1 mmol/L (3.5-5.0)
--- NOTE | 2016-07-20 14:06 | PN ---
Subjective Date of Service: 07/20/16 Interval History: This is an 85 yo female with chronic respiratory failure secondary to COPD who presented with c/o lethargy, n/v/d with a question of aspiration PNA that occurred during vomiting. Patient has been treated with Zosyn. She reports that she is significantly fatigued. She had one episode of diarrhea this am, that was one of the first since admission. Appetite is good. No abdominal pain, n/v. She has a cough which she reports is improving her dyspnea is improving as well. Objective Active Medications: Acetaminophen (Tylenol Tab*) 650 mg PO Q4H PRN PRN Reason: FEVER/PAIN Hydrocodone Bitart/Acetaminophen ([place] 5-325 Tab*) 1 tab PO Q6H PRN PRN Reason: PAIN Last Admin: 07/19/16 20:31 Dose: 1 tab Al Hydrox/Mg Hydrox/Simethicone (Maalox Plus*) 30 ml PO Q6H PRN PRN Reason: INDIGESTION Albuterol/Ipratropium (Duoneb (Albuterol 2.5 Mg/Ipratropium 0.5 Mg)) 1 neb INH [id number] AWAKE PRN PRN Reason: sob/wheexing Last Admin: 07/19/16 12:43 Dose: 1 neb Aspirin (Aspirin Ec Low Dose*) 81 mg PO DAILY [facility] Last Admin: 07/20/16 08:15 Dose: 81 mg Budesonide (Pulmicort Neb*) 0.5 mg INH RT.BID [facility] Last Admin: 07/20/16 08:00 Dose: 0.5 mg Fentanyl (Duragesic Patch 12 Mcg/Hr *) 12 mcg TRANSDERM Q72H [facility] Last Admin: 07/17/16 14:57 Dose: 12 mcg Gabapentin (Neurontin Cap(*)) 300 mg PO TID [facility] Last Admin: 07/20/16 08:15 Dose: 300 mg Gabapentin (Neurontin Cap(*)) 600 mg PO BEDTIME [facility] Last Admin: 07/19/16 20:30 Dose: 600 mg Heparin Sodium (Porcine) (Heparin Vial(*)) 5,000 units SUBCUT Q8HR [facility] Last Admin: 07/20/16 06:31 Dose: 5,000 units Piperacillin Sod/Tazobactam Sod (Zosyn 3.375 Gm In Ns Premix*) 3.375 gm in 100 mls @ 25 mls/hr IVPB Q12H [facility] Last Admin: 07/20/16 08:15 Dose: 25 mls/hr Sodium Chloride (Ns 0.9% 1000 Ml*) 1,000 mls @ 75 mls/hr IV PER RATE [facility] Nystatin (Nystatin Oint*) 1 applic TOPICAL TID PRN PRN Reason: RASH Omeprazole (Prilosec Cap*) 20 mg PO 0600 [facility] Last Admin: 07/20/16 06:30 Dose: 20 mg Ondansetron HCl (Zofran Inj*) 4 mg IV Q4H PRN PRN Reason: NAUSEA/VOMITING Pharmacy Profile Note (Fentanyl Patch Check Q Shift) 1 note N/A 0700,1900 [facility] Last Admin: 07/20/16 06:39 Dose: 1 note Prednisone (Deltasone Tab*) 60 mg PO DAILY [facility] Vital Signs: Temp Pulse Resp BP Pulse Ox 97.7 F 81 20 115/55 98 07/20/16 07:22 07/20/16 09:19 07/20/16 10:15 07/20/16 07:22 07/20/16 09:19 Oxygen Devices in Use Now: Nasal Cannula - 5L Appearance: Fatigued appearing elderly female in NAD. Sleeping upon entering the room. Respiratory: Symmetrical Chest Expansion and Respiratory Effort, - - few wheezes /rhonchi appreciated. No crackles Cardiovascular: RRR Abdominal: NL Sounds; No Tenderness; No Distention Extremities: No Edema Neurological: Alert and Oriented x 3 Result Diagrams: 07/20/16 08:14 07/20/16 08:14 Additional Lab and Data: Microbiology and Other Data: Microbiology 07/18/16 01:10 Urine Culture - Final Urine No Growth (<1,000 CFU/mL) Diagnostic Imaging: CT abd/pelvis - NAD CXR - minor congestion, COPD changes Assess/Plan/Problems-Billing Assessment: Ms. Contreras is a 85 yo female with PMH significant for COPD on 3L O2 at home, CKD, chronic pain, HTN, HLD and RLS who presented to the emergency room with complaints of nausea and vomiting, and was found to have possible aspiration pneumonia. - Patient Problems (1) Sepsis Comment: Secondary to pneumonia Meets sepsis criteria on admission with SIRS criteria (tachycardia and leukocytosis) and SOFA score 3 (low MAP, AMS and elevated creatinine). Continue IV antibiotics and IVF. Urine culture negative for significant growth. (2) Pneumonia Comment: Suspect possible aspiration pneumonitis vs PNA Now afebrile and leukocytosis improving. Still requiring higher levels of supplemental O2, but can start to titrate back to home needs Continue IV Zosyn. (3) Gastroenteritis Comment: Symptoms likely started as an acute gastroenteritis with n/v/d Mostly resolved, one episode of diarrhea this am No abdominal pain, n/v resolved (4) Acute on chronic kidney failure Comment: Baseline stage III Cr slightly improved today, BUN remains elevated Cont IVF and close monitoring (5) Chronic respiratory failure Comment: Secondary to COPD 3L chronic use at baseline (6) COPD (chronic obstructive pulmonary disease) Comment: With associated exacerbation secondary to PNA Greater O2 needs with rhonchi/wheezing Decrease steroids to 60mg prednisone daily (7) Anemia Comment: Chronic normocytic anemia Hgb stable (8) HTN (hypertension) Comment: Hypotensive/normotensive during hospital stay Lisinopril has been held (9) Chronic pain Comment: Continue her home dose fentanyl patch. She [facility] to the [facility]. (10) GERD (gastroesophageal reflux disease) Comment: Continue omeprazole. (11) Osteoarthritis Comment: c/w Tylenol (12) Restless legs syndrome (RLS) Comment: Stable. (13) Full code status Status and Disposition: Inpatient. Anticipate discharge in 1-2 days
[2016-07-20] MEDS: fentaNYL PATCH 12 MCG/HR TRANSDERM SCH (14:54)
[2016-07-21] MEDS: Omeprazole CAP* 20 MG PO SCH (06:08)
[2016-07-21] MEDS: Heparin VIAL(*) 5000 UNITS/ML VIAL (FIVE THOUSAND) SUBCUT SCH ×3 (06:15→21:11)
[2016-07-21] MEDS: fentaNYL Patch Check Q Shift 1 NOTE SCH ×3 (07:11→19:15)
[2016-07-21] MEDS ORDERED: fentaNYL PATCH 12 MCG/HR TRANSDERM ONE (08:00)
[2016-07-21] MEDS: Budesonide NEB* 0.5 MG/2 ML NEB.SOLN INH SCH ×2 (08:09→19:35)
[2016-07-21] MEDS: Albuterol/Ipratropium NEB.SOL* Albuterol 2.5 MG/Ipratropium 0.5 MG 3 ML INH PRN ×3 (08:14→19:35)
[2016-07-21] MEDS: Aspirin EC Low Dose* 81 MG TAB.EC PO SCH (09:09)
[2016-07-21] MEDS: predniSONE TAB* 20 MG PO SCH (09:09)
[2016-07-21] MEDS: NS 0.9% 1000 ML* 1,000 ML IV SCH (09:11)
[2016-07-21] MEDS: Gabapentin CAP(*) 300 MG PO SCH ×4 (09:20→21:10)
[2016-07-21] MEDS: Piperac/Tazob 3.375 gm in NS* 3.375 GM/100 ML BAG IVPB SCH ×2 (09:20→21:11)
--- NOTE | 2016-07-21 09:37 | PN ---
Subjective Date of Service: 07/21/16 Interval History: Patient reports she is still quite fatigued, but is up to a chair this am and just finished a good breakfast. She reports that her appetite is good. Cough persists, but she states that is chronic. She denies dyspnea at rest. No abdominal pain but she had multiple episodes of diarrhea overnight last night. Objective Active Medications: Acetaminophen (Tylenol Tab*) 650 mg PO Q4H PRN PRN Reason: FEVER/PAIN Hydrocodone Bitart/Acetaminophen ([place] 5-325 Tab*) 1 tab PO Q6H PRN PRN Reason: PAIN Last Admin: 07/19/16 20:31 Dose: 1 tab Al Hydrox/Mg Hydrox/Simethicone (Maalox Plus*) 30 ml PO Q6H PRN PRN Reason: INDIGESTION Albuterol/Ipratropium (Duoneb (Albuterol 2.5 Mg/Ipratropium 0.5 Mg)) 1 neb INH [id number] AWAKE PRN PRN Reason: sob/wheexing Last Admin: 07/21/16 08:14 Dose: 1 neb Aspirin (Aspirin Ec Low Dose*) [address] [facility] Last Admin: 07/21/16 09:09 Dose: 81 mg Budesonide (Pulmicort Neb*) 0.[address] [facility] Last Admin: 07/21/16 08:09 Dose: 0.5 mg Fentanyl (Duragesic Patch 12 Mcg/Hr *) 12 mcg TRANSDERM Q72H [facility] Last Admin: 07/20/16 14:54 Dose: 12 mcg Gabapentin (Neurontin Cap(*)) 300 mg PO TID [facility] Last Admin: 07/21/16 09:20 Dose: 300 mg Gabapentin (Neurontin Cap(*)) [address] [facility] Last Admin: 07/20/16 20:27 Dose: 600 mg Heparin Sodium (Porcine) (Heparin Vial(*)) 5,000 units SUBCUT Q8HR [facility] Last Admin: 07/21/16 06:15 Dose: 5,000 units Piperacillin Sod/Tazobactam Sod (Zosyn 3.375 Gm In Ns Premix*) 3.375 gm in 100 mls @ 25 mls/hr IVPB Q12H [facility] Last Admin: 07/21/16 09:20 Dose: 25 mls/hr Sodium Chloride (Ns 0.9% 1000 Ml*) 1,000 mls @ 75 mls/hr IV PER RATE [facility] Last Admin: 07/21/16 09:11 Dose: 75 mls/hr Nystatin (Nystatin Oint*) 1 applic TOPICAL TID PRN PRN Reason: RASH Omeprazole (Prilosec Cap*) [address] [facility] Last Admin: 07/21/16 06:08 Dose: 20 mg Ondansetron HCl (Zofran Inj*) 4 mg IV Q4H PRN PRN Reason: NAUSEA/VOMITING Pharmacy Profile Note (Fentanyl Patch Check Q Shift) 1 note N/A 0700,1900 [facility] Last Admin: 07/21/16 07:11 Dose: Not Given Pharmacy Profile Note (Fentanyl Patch Check Q Shift) 1 note N/A 0700,1900 [facility] Stop: 07/24/16 07:59 Prednisone (Deltasone Tab*) [address] [facility] Last Admin: 07/21/16 09:09 Dose: 60 mg Vital Signs: Temp Pulse Resp BP Pulse Ox 97.4 F 82 14 130/67 94 07/20/16 23:44 07/21/16 08:23 07/21/16 09:20 07/21/16 03:51 07/21/16 08:23 Oxygen Devices in Use Now: Nasal Cannula - 5L Appearance: Slightly fatigued, but improved appearing. Sitting in a chair and just finished breakfast Neck: NL Appearance and Movements; NL JVP Respiratory: Symmetrical Chest Expansion and Respiratory Effort, Clear to Auscultation Cardiovascular: NL Sounds; No Murmurs; No JVD, RRR Abdominal: NL Sounds; No Tenderness; No Distention Extremities: - - trace LE edema Skin: No Rash or Ulcers Neurological: Alert and Oriented x 3 Result Diagrams: 07/20/16 08:14 07/20/16 08:14 Additional Lab and Data: Microbiology and Other Data: Microbiology 07/18/16 01:10 Urine Culture - Final Urine No Growth (<1,000 CFU/mL) Diagnostic Imaging: CT abd/pelvis - NAD CXR - minor congestion, COPD changes Assess/Plan/Problems-Billing Assessment: Ms. Contreras is a 85 yo female with PMH significant for COPD on 3L O2 at home, CKD, chronic pain, HTN, HLD and RLS who presented to the emergency room with complaints of nausea and vomiting, and was found to have possible aspiration pneumonia. - Patient Problems (1) Sepsis Comment: Secondary to pneumonia Meets sepsis criteria on admission with SIRS criteria (tachycardia and leukocytosis) and SOFA score 3 (low MAP, AMS and elevated creatinine). Continue Zosyn Urine culture negative for significant growth. (2) Pneumonia Comment: Suspect possible aspiration pneumonitis vs PNA Now afebrile and leukocytosis improving. Still requiring higher levels of supplemental O2, but improving Continue IV Zosyn. (3) Gastroenteritis Comment: Symptoms likely started as an acute gastroenteritis with n/v/d Having frequent episodes of diarrhea overnight but without abd pain No abdominal pain, n/v resolved Labs are pending for today Will monitor for continued diarrhea today, if persistent will eval for C.diff (4) Acute on chronic kidney failure Comment: Baseline stage III Cr slightly improved yesterday, labs for today pending Rate of IVF slowed yesterday, can likely stop today (5) Chronic respiratory failure Comment: Secondary to COPD 3L chronic use at baseline (6) COPD (chronic obstructive pulmonary disease) Comment: With associated exacerbation secondary to PNA Greater O2 needs with rhonchi/wheezing Decreased steroids to 60mg prednisone daily (7) Anemia Comment: Chronic normocytic anemia Hgb stable (8) HTN (hypertension) Comment: Hypotensive/normotensive during hospital stay Lisinopril has been held (9) Chronic pain Comment: Continue her home dose fentanyl patch. She [facility] to the [facility]. (10) GERD (gastroesophageal reflux disease) Comment: Continue omeprazole. (11) Osteoarthritis Comment: c/w Tylenol (12) Restless legs syndrome (RLS) Comment: Stable. (13) Full code status Status and Disposition: Inpatient. Anticipate discharge in 1-2 days
[2016-07-21 09:38] LABS: Hematocrit 31 % (35-47); Hemoglobin 9.8 g/dl (12.0-16.0); Mean Corpuscular HGB Conc 32 g/dl (31-36); Mean Corpuscular Hemoglobin 31 pg (27-31); Mean Corpuscular Volume 98 fL (80-97); Mean Platelet Volume 8 um3 (7.4-10.4); Red Blood Count 3.17 10^6/ul (4.0-5.4); Red Cell Distribution Width 14 % (10.5-15); White Blood Count 6.8 10^3/ul (3.5-10.8)
[2016-07-21 09:56] LABS: BUN/Creatinine Ratio 29.7 (8-20); Calcium 8.6 mg/dL (8.6-10.3); EGFR African American 31.4 (>60); EGFR Non-African American 24.4 (>60); Potassium 3.6 mmol/L (3.5-5.0)
[2016-07-22] MEDS: Heparin VIAL(*) 5000 UNITS/ML VIAL (FIVE THOUSAND) SUBCUT SCH ×3 (05:07→20:13)
[2016-07-22] MEDS: Omeprazole CAP* 20 MG PO SCH (05:07)
[2016-07-22] MEDS: fentaNYL Patch Check Q Shift 1 NOTE SCH ×3 (07:17→19:20)
[2016-07-22] MEDS: Budesonide NEB* 0.5 MG/2 ML NEB.SOLN INH SCH ×2 (08:09→19:56)
[2016-07-22] MEDS: Albuterol/Ipratropium NEB.SOL* Albuterol 2.5 MG/Ipratropium 0.5 MG 3 ML INH PRN ×3 (08:10→19:57)
[2016-07-22] MEDS: HYDROcodone/ACETAMIN 5-325 MG* 1 TAB PO PRN (09:56)
[2016-07-22] MEDS: predniSONE TAB* 20 MG PO SCH (09:57)
[2016-07-22] MEDS: Gabapentin CAP(*) 300 MG PO SCH ×4 (09:57→20:12)
[2016-07-22] MEDS: Aspirin EC Low Dose* 81 MG TAB.EC PO SCH (09:57)
[2016-07-22] MEDS: Piperac/Tazob 3.375 gm in NS* 3.375 GM/100 ML BAG IVPB SCH ×2 (10:06→20:12)
--- NOTE | 2016-07-22 11:08 | PN ---
Subjective Date of Service: 07/22/16 Interval History: Patient reports that she is improving. Some mild, small volume diarrhea this am , none overnight. No abd pain. Appetite is good. No dyspnea this am. Occasional cough. No new complaints. Remains fatigued and weak. Objective Active Medications: Acetaminophen (Tylenol Tab*) 650 mg PO Q4H PRN PRN Reason: FEVER/PAIN Hydrocodone Bitart/Acetaminophen ([place] 5-325 Tab*) 1 tab PO Q6H PRN PRN Reason: PAIN Last Admin: 07/22/16 09:56 Dose: 1 tab Al Hydrox/Mg Hydrox/Simethicone (Maalox Plus*) 30 ml PO Q6H PRN PRN Reason: INDIGESTION Albuterol/Ipratropium (Duoneb (Albuterol 2.5 Mg/Ipratropium 0.5 Mg)) 1 neb INH [id number] AWAKE PRN PRN Reason: sob/wheexing Last Admin: 07/22/16 08:10 Dose: 1 neb Aspirin (Aspirin Ec Low Dose*) 81 mg PO DAILY [facility] Last Admin: 07/22/16 09:57 Dose: 81 mg Budesonide (Pulmicort Neb*) 0.5 mg INH RT.BID [facility] Last Admin: 07/22/16 08:09 Dose: 0.5 mg Fentanyl (Duragesic Patch 12 Mcg/Hr *) 12 mcg TRANSDERM Q72H [facility] Last Admin: 07/20/16 14:54 Dose: 12 mcg Gabapentin (Neurontin Cap(*)) 300 mg PO TID [facility] Last Admin: 07/22/16 09:57 Dose: 300 mg Gabapentin (Neurontin Cap(*)) 600 mg PO BEDTIME [facility] Last Admin: 07/21/16 21:10 Dose: 600 mg Heparin Sodium (Porcine) (Heparin Vial(*)) 5,000 units SUBCUT Q8HR [facility] Last Admin: 07/22/16 05:07 Dose: 5,000 units Piperacillin Sod/Tazobactam Sod (Zosyn 3.375 Gm In Ns Premix*) 3.375 gm in 100 mls @ 25 mls/hr IVPB Q12H [facility] Last Admin: 07/22/16 10:06 Dose: 25 mls/hr Nystatin (Nystatin Oint*) 1 applic TOPICAL TID PRN PRN Reason: RASH Omeprazole (Prilosec Cap*) 20 mg PO 0600 [facility] Last Admin: 07/22/16 05:07 Dose: 20 mg Ondansetron HCl (Zofran Inj*) 4 mg IV Q4H PRN PRN Reason: NAUSEA/VOMITING Pharmacy Profile Note (Fentanyl Patch Check Q Shift) 1 note N/A 0700,1900 [facility] Last Admin: 07/22/16 07:17 Dose: 1 note Prednisone (Deltasone Tab*) 60 mg PO DAILY [facility] Last Admin: 07/22/16 09:57 Dose: 60 mg Vital Signs: Temp Pulse Resp BP Pulse Ox 97.8 F 66 20 128/55 100 07/22/16 03:16 07/22/16 08:12 07/22/16 09:57 07/22/16 03:16 07/22/16 08:12 Oxygen Devices in Use Now: Nasal Cannula Appearance: Well appearing, up to chair. Slightly fatigued appearing Respiratory: Symmetrical Chest Expansion and Respiratory Effort, Clear to Auscultation Cardiovascular: NL Sounds; No Murmurs; No JVD, RRR Abdominal: NL Sounds; No Tenderness; No Distention Extremities: - - 1+ edema bilaterally Skin: No Rash or Ulcers Neurological: Alert and Oriented x 3 Result Diagrams: 07/21/16 09:32 07/21/16 09:32 Additional Lab and Data: Microbiology and Other Data: Microbiology 07/18/16 01:10 Urine Culture - Final Urine No Growth (<1,000 CFU/mL) Diagnostic Imaging: CT abd/pelvis - NAD CXR - minor congestion, COPD changes Assess/Plan/Problems-Billing Assessment: Ms. Contreras is a 85 yo female with PMH significant for COPD on 3L O2 at home, CKD, chronic pain, HTN, HLD and RLS who presented to the emergency room with complaints of nausea and vomiting, and was found to have possible aspiration pneumonia. - Patient Problems (1) Sepsis Comment: Secondary to pneumonia Meets sepsis criteria on admission with SIRS criteria (tachycardia and leukocytosis) and SOFA score 3 (low MAP, AMS and elevated creatinine). Continue Zosyn Urine culture negative for significant growth. (2) Pneumonia Comment: Suspect possible aspiration pneumonitis vs PNA Now afebrile and leukocytosis improving. She has now returned to her baseline oxygen needs Continue IV Zosyn. (3) Gastroenteritis Comment: Symptoms likely started as an acute gastroenteritis with n/v/d Diarrhea has now nearly resolved No abdominal pain, n/v resolved Labs are pending for today Will monitor for continued diarrhea today, if persistent will eval for C.diff (4) Acute on chronic kidney failure Comment: Baseline stage III Cr appears to be back to near baseline (5) Chronic respiratory failure Comment: Secondary to COPD 3L chronic use at baseline (6) COPD (chronic obstructive pulmonary disease) Comment: With associated exacerbation secondary to PNA Greater O2 needs with rhonchi/wheezing Cont oral steroids, decrease to 40 mg starting tomorrow (7) Anemia Comment: Chronic normocytic anemia Hgb stable (8) HTN (hypertension) Comment: Hypotensive/normotensive earlier during hospital stay Now slightly hypertensive, will resume lisinopril (9) Chronic pain Comment: Continue her home dose fentanyl patch. She [facility] to the [facility]. (10) GERD (gastroesophageal reflux disease) Comment: Continue omeprazole. (11) Osteoarthritis Comment: c/w Tylenol (12) Restless legs syndrome (RLS) Comment: Stable. (13) Full code status Status and Disposition: Inpatient. Patient would benefit from ALFONSO which she is agreeable to. Referrals are being sent by SW today, possible dc tomorrow.
[2016-07-22] MEDS: Lisinopril TAB* 10 MG PO SCH (13:16)
[2016-07-22] MEDS: Lidocaine 2% JELLY* 6 ML JELLY TOPICAL PRN (13:21)
[2016-07-23] MEDS: Omeprazole CAP* 20 MG PO SCH (05:38)
[2016-07-23] MEDS: Heparin VIAL(*) 5000 UNITS/ML VIAL (FIVE THOUSAND) SUBCUT SCH (05:41)
[2016-07-23 06:07] LABS: Hematocrit 28 % (35-47); Hemoglobin 9.3 g/dl (12.0-16.0); Mean Corpuscular HGB Conc 33 g/dl (31-36); Mean Corpuscular Hemoglobin 31 pg (27-31); Mean Corpuscular Volume 95 fL (80-97); Mean Platelet Volume 8 um3 (7.4-10.4); Red Blood Count 2.97 10^6/ul (4.0-5.4); Red Cell Distribution Width 13 % (10.5-15); White Blood Count 7.3 10^3/ul (3.5-10.8)
--- NOTE | 2016-07-23 06:08 | DS ---
DISCHARGE SUMMARY: DATE OF ADMISSION: 07/17/16 DATE OF DISCHARGE: 07/23/16 PRIMARY CARE PROVIDER: Dr. Abernathy. DISCHARGING PROVIDER: NATALIE Greenwood SUPERVISING PHYSICIAN: Dr. Reagan Trivedi* (dictated by NATALIE Greenwood). PRIMARY DISCHARGE DIAGNOSES: 1. Sepsis secondary to pneumonia of presumed aspiration source. 2. Chronic obstructive pulmonary disease exacerbation secondary to pneumonia. 3. Viral gastroenteritis. 4. Acute on chronic renal failure with creatinine back to baseline. SECONDARY DISCHARGE DIAGNOSES: 1. Chronic respiratory failure secondary to chronic obstructive pulmonary disease, requiring 3 L of supplemental oxygen at baseline. 2. Chronic normocytic anemia, likely secondary to chronic disease. 3. Hypertension. 4. Chronic pain. 5. Gastroesophageal reflux disease. 6. Osteoarthritis. 7. Restless legs syndrome. DISCHARGE MEDICATIONS: 1. DuoNeb inhaled 4 times daily as necessary for shortness of breath. 2. Augmentin 875/125 p.o. twice daily x7 days. 3. Aspirin 81 mg p.o. daily. 4. Pulmicort 0.5 mg inhaled twice daily. 5. Calcium with vitamin D supplement 1 tablet p.o. twice daily. 6. Ferrous sulfate 325 mg p.o. daily. 7. Lasix 20 mg p.o. daily. 8. Gabapentin 600 mg p.o. at bedtime and 300 mg p.o. 3 times daily. 9. Vicodin half a tab to 1 tablet p.o. q.6 hours as needed for pain. 10. Lisinopril 20 mg p.o. daily. 11. Vitamin B12 1000 mcg p.o. daily. 12. Nystatin ointment applied topically 3 times daily as needed. 13. Fentanyl patch 12 mcg transdermally every 72 hours. 14. Prednisone in a tapering dose, 40 mg x3 days, followed by 20 mg x3 days, and then to resume her typical dose of 10 mg daily. Medication changes: 1. Augmentin x7 days. 2. Prednisone at a tapering dose with instructions to resume her typical daily dose of 10 mg daily after completing taper. HOSPITAL IMAGIN. Chest x-ray shows findings consistent with COPD and suspect some mild interstitial congestion. 2. CT of the abdomen and pelvis demonstrates some chronic-appearing basilar abnormalities with some basilar consolidative changes. No other acute findings. HOSPITAL COURSE: This is an 85-year-old female with chronic respiratory failure secondary to COPD, requiring 3 L supplemental oxygen at baseline, as well as chronic kidney disease, hypertension, chronic, pain, restless legs syndrome, and GERD, who presented to the emergency department with complaints of lethargy, nausea, and vomiting. The patient had been having GI symptoms for a couple of days prior to admission and became progressively weak. Initial white blood cell count was 18,000. She had evidence of acute kidney injury with a BUN of and a creatinine of 2.22 where her baseline is closer to 1.7 to 1.9. Her initial urinalysis was suggestive of a possible urinary tract infection with 2+ leuk esterase and white blood cells, but culture did not grow anything. She had increased oxygen requirements at admission requiring between 5 and 6 L to maintain saturations in the low 90s. For this reason, there is thought to be potential aspiration pneumonia due to her recent vomiting. There was some consolidation appreciated in both lower lung [place] on the upper portion of her abdomen on CT, but nothing definitive appreciated on chest x-ray. The patient's respiratory symptoms improved rather quickly. It took several days to get her back to her baseline oxygen requirements, however. Her complaints of nausea and vomiting resolved almost immediately and her diarrhea had initially slowed, but then became more severe again on hospital day 3, but this resolved spontaneously as well. Her CT scan was not suggestive of any colitis or diverticulitis and she had no associated abdominal pain with her other GI symptoms. The patient was treated for presumed aspiration pneumonia with Zosyn and treated for subsequent COPD exacerbation initially with stress doses of steroids , as she is maintained chronically on 10 mg of prednisone daily and transitioned to oral prednisone starting at 60 mg and discharged on a dose of 40 mg. Her GI symptoms were treated supportively and nearly resolved at the time of discharge. The patient remained quite weak and her ability to ambulate was limited to just a few feet. At baseline, she is not terribly active, but this acute illness certainly left her weaker and for this reason discharge to subacute rehab was recommended which the patient reluctantly agreed to. DISPOSITION AND FOLLOWUP PLAN: The patient is being discharged to [facility] for subacute rehab. She requires prednisone in a tapering dose as described above and then resuming her prior dose of 10 mg daily after completing the taper as well as 7 additional days of Augmentin. The patient requires followup with her primary care provider after discharge from rehab. NATALIE GREENWOOD CC: Dr. Abernathy* [id number]/[facility] #: [id number] MTDD
[2016-07-23 06:22] LABS: BUN/Creatinine Ratio 25.4 (8-20); Calcium 9.1 mg/dL (8.6-10.3); EGFR African American 36.9 (>60); EGFR Non-African American 28.7 (>60); Potassium 4.4 mmol/L (3.5-5.0)
[2016-07-23] MEDS: fentaNYL Patch Check Q Shift 1 NOTE SCH (07:00)
[2016-07-23] MEDS: Budesonide NEB* 0.5 MG/2 ML NEB.SOLN INH SCH (07:41)
[2016-07-23 08:06] VITALS: BP 164/79
[2016-07-23] MEDS: Piperac/Tazob 3.375 gm in NS* 3.375 GM/100 ML BAG IVPB SCH (08:25)
[2016-07-23] MEDS: Aspirin EC Low Dose* 81 MG TAB.EC PO SCH (08:26)
[2016-07-23] MEDS: Gabapentin CAP(*) 300 MG PO SCH (08:26)
[2016-07-23] MEDS: Lisinopril TAB* 10 MG PO SCH (08:27)
[2016-07-23] MEDS ORDERED: predniSONE TAB* 20 MG PO SCH (09:00)
[2016-07-23] MEDS: Lidocaine 2% JELLY* 6 ML JELLY TOPICAL PRN (09:39)
== END 2016-07-23 11:30 | DRG 871 ==
LOC: ED 09:53 → MED 13:00
PROVIDERS: ADMIT Internal Medicine; ATTEND Internal Medicine
DX: A41.89 Other specified sepsis (principal); J69.0 Pneumonitis due to inhalation of food and vomit; N17.9 Acute kidney failure, unspecified; J96.10 Chronic respiratory failure, unspecified whether with hypoxia or hypercapnia; J44.1 Chronic obstructive pulmonary disease with (acute) exacerbation; A08.4 Viral intestinal infection, unspecified; I12.9 Hypertensive chronic kidney disease with stage 1 through stage 4 chronic kidney disease, or unspecified chronic kidney disease; N18.3 Chronic kidney disease, stage 3 (moderate); D63.1 Anemia in chronic kidney disease; G89.29 Other chronic pain; K21.9 Gastro-esophageal reflux disease without esophagitis; M19.90 Unspecified osteoarthritis, unspecified site; G25.81 Restless legs syndrome; Z99.81 Dependence on supplemental oxygen; Z79.82 Long term (current) use of aspirin; Z79.52 Long term (current) use of systemic steroids; Z79.899 Other long term (current) drug therapy; Z82.49 Family history of ischemic heart disease and other diseases of the circulatory system; Z80.9 Family history of malignant neoplasm, unspecified
CPT/HCPCS: 36415; 71010; 74176; 80048; 80053; 81003; 81015; 82550; 82553; 83605; 83690; 83735; 84443; 84484; 85025; 85610; 85730; 86140; 87086; 93005; 94640; 94760; A9270-GY; J1644; J1720; J2405; J2543; J7512

== ENCOUNTER 2016-10-27 10:55 | Inpatient (IN) | payer MEDICARE ==
[2016-10-27] MEDS ORDERED: Aspirin Low Dose CHEW TAB* 81 MG PO ONE (11:28)
[2016-10-27] MEDS ORDERED: methylPREDNISolone 125 MG* 2 ML VIAL IV ONE (11:30)
[2016-10-27] MEDS ORDERED: Albuterol/Ipratropium NEB.SOL* Albuterol 2.5 MG/Ipratropium 0.5 MG 3 ML INH ONE (11:31)
--- NOTE | 2016-10-27 12:01 | RAD ---
INDICATION: Weakness and fever COMPARISON: Most recent comparison chest x-ray is dated July 17, 2016 TECHNIQUE: Single AP portable view of the chest was obtained. FINDINGS: Image quality is compromised due to the relative inferiority of a portable chest x-ray. The heart and mediastinum exhibit normal size and contour. There is atherosclerotic calcification at the arch of the aorta. The lungs are grossly clear. There is no evidence of a large pleural effusion. Visualized bones are normal for the patient's age. IMPRESSION: No radiographic evidence for acute cardiopulmonary abnormality on this portable chest x-ray.
[2016-10-27 12:20] LABS: Hematocrit 31 % (35-47); Hemoglobin 9.6 g/dl (12.0-16.0); Mean Corpuscular HGB Conc 31 g/dl (31-36); Mean Corpuscular Hemoglobin 30 pg (27-31); Mean Corpuscular Volume 95 fL (80-97); Mean Platelet Volume 8 um3 (7.4-10.4); Red Blood Count 3.22 10^6/ul (4.0-5.4); Red Cell Distribution Width 14 % (10.5-15); White Blood Count 14.8 10^3/ul (3.5-10.8)
--- NOTE | 2016-10-27 12:31 | RAD ---
INDICATION: LEFT lower extremity pain. COMPARISON: January 02, 2004 TECHNIQUE: Robles scale, color Doppler, and spectral analysis of the deep veins of the LEFT lower extremity. Vessel compression, phasicity, and augmentation assessed. REPORT: The LEFT common femoral, great saphenous, profunda femoral, femoral, and popliteal veins are patent. Flow could only be demonstrated within the paired posterior tibial and peroneal veins with augmentation. Subcutaneous edema noted at the level of the knee and lower leg. Patency of the RIGHT common femoral vein documented. IMPRESSION: 1. No evidence for popliteal or more proximal LEFT lower extremity DVT. 2. Probable nonocclusive thrombosis of the paired LEFT lower extremity posterior tibial and peroneal calf veins. Small size limits assessment. 3. Extensive knee and lower leg subcutaneous edema.
[2016-10-27 12:35] LABS: Albumin 3.6 g/dL (3.2-5.2); BUN/Creatinine Ratio 22.3 (8-20); Calcium 9.5 mg/dL (8.6-10.3); EGFR Non-African American 17.1 (>60); Globulin 2.9 g/dL (2-4); Potassium 5.5 mmol/L (3.5-5.0); Total Bilirubin 0.6 mg/dL (0.2-1.0); Total Protein 6.5 g/dL (6.4-8.9)
[2016-10-27 12:44] LABS: Troponin I 0.06 ng/mL (<0.04)
[2016-10-27] MEDS ORDERED: Azithromycin TAB* 250 MG PO ONE (15:15)
[2016-10-27] MEDS ORDERED: Triamcinolone 0.025% OINT * 15 GM TUBE TOPICAL PRN (15:16)
[2016-10-27] MEDS ORDERED: Albuterol 2.5 MG/3 ML NEB.SOL* (0.083%) INH PRN (15:16)
[2016-10-27] MEDS ORDERED: Nystatin OINT* 15 GM TOPICAL PRN (15:16)
[2016-10-27] MEDS ORDERED: ALPRAZolam TAB* 0.25 MG PO PRN (15:21)
[2016-10-27] MEDS ORDERED: fentaNYL PATCH 12 MCG/HR TRANSDERM SCH (16:00)
[2016-10-27] MEDS ORDERED: Gabapentin CAP(*) 300 MG PO SCH ×2 (16:20→21:00)
--- NOTE | 2016-10-27 16:35 | RAD ---
Indication: Probable nonocclusive DVT involving the LEFT lower leg posterior tibial and peroneal veins. Comparison: October 27, 2016 chest radiograph. Technique: Following administration of 8.650 mCi xenon-133 by inhalation anterior and posterior ventilation images were obtained. Following the administration of 6.200 mCi of Tc-99m macroaggregated albumin, perfusion images were obtained in multiple projections. Report: The ventilation pattern is grossly uniform and demonstrates bilateral air trapping. Accounting for cardiomegaly based on correlation with chest radiograph the perfusion images are unremarkable without evidence for significant subsegmental or segmental perfusion defects. IMPRESSION: 1. No compelling scintigraphic evidence for pulmonary embolism. 2. Air trapping consistent with obstructive lung disease.
[2016-10-27] MEDS ORDERED: NS 0.9% 250 ML* 250 ML IV ONE (17:50)
[2016-10-27] MEDS: Ipratropium 0.5MG/2.5ML NEB* 0.5 MG/2.5 ML NEB.SOLN INH SCH ×2 (18:02→20:50)
--- NOTE | 2016-10-27 18:27 | PN ---
Hospitalist Progress Note ~1740 notified by [facility] [place] [facility] staff that Pt is less responsive and hypotensive. She had a new Fentanyl patch placed and received her afternoon dose of gabapentin. Pupils are small but responsive to light and Pt is able to wake up and open eyes. Pt able to open eyes for a second and hand architecture drafter are equal. Fentanyl patch removed. Will check a brain CT now. If Pt continues to be lethargic will give Narcan 1 hour after Fentanyl patch removed.
[2016-10-27] MEDS: NS 0.9% 1000 ML* 1,000 ML IV SCH (18:45)
--- NOTE | 2016-10-27 18:52 | ED ---
Patricia Samayoa Edward, scribed for Alexys Riley MD on 10/27/16 at 1128 . Complex/Multi-Sys Presentation - HPI Summary HPI Summary: 86 y/o female presents to ED c/o gradual onset fatigue, general weakness and shakiness for two days. The pt c/o increased SOB starting yesterday. Last night the pt was pale, per daughter. Associated sx: chronic cough but more than usual , sharp pains in L leg yesterday. Pt is on home O2. Denies CP. PMHx COPD. Smoker. - History Of Current Complaint Chief Complaint: EDGeneral Time Seen by Provider: 10/27/16 11:22 Hx Obtained From: Patient, Family/Family Independence Case Manager - Daughter Onset/Duration: Gradual Onset, Lasting Days, Still Present Associated Signs And Symptoms: Positive: Weakness, SOB, Cough, Other - Fatigue, shakiness, sharp pains in L leg - Allergies/Home Medications Allergies/Adverse Reactions: Allergies Allergy/AdvReac Type Severity Reaction Status Date / Time Codeine Allergy Intermediate gets crazy Verified 09/10/16 11:07 Sulfa Drugs Allergy Mild Insomnia Verified 09/10/16 11:07 Home Medications: Home Medications ALPRAZolam TAB* [Xanax TAB*] 1 tab PO BID PRN 10/27/16 [History Confirmed ] Budesonide Flexhaler 180 (NF) [Pulmicort Flexhaler 180 mcg/act (NF)] 2 puff INH BID 10/27/16 [History Confirmed 10/27/16] Potassium Chlor TAB* [Klor Con ER TAB 10 MEQ*] 10 meq PO DAILY 10/27/16 [ History Confirmed 10/27/16] Silver Sulfadiazine 1%* [SILVadine 1%*] 1 applic TOPICAL BID 10/27/16 [History Confirmed 10/27/16] PMH/Surg Hx/FS Hx/Imm Hx Previously Healthy: No Endocrine/Hematology History: Denies: Hx Diabetes Cardiovascular History: Reports: Hx Hypertension, Hx Syncope - "years ago" Denies: Hx Pacemaker/ICD, Hx Peripheral Vascular Disease Respiratory History: Reports: Hx Asthma, Hx Chronic Bronchitis, Hx Chronic Obstructive Pulmonary Disease (COPD), Hx Pneumonia, Hx Seasonal Allergies GI History: Reports: Hx Gastroesophageal Reflux Disease - ON DAILY MEDS, Hx Hiatal Hernia, Other GI Disorders - internal hemorhoids History: Reports: Other Problems/Disorders - bladder infections in past Denies: Hx Dialysis, Hx Renal Disease Musculoskeletal History: Reports: Hx Arthritis, Hx Back Problems, Hx Osteoporosis, Hx Scoliosis, Other Musculoskeletal History - Torn Meniscus, degenerative disk dx Sensory History: Reports: Hx Contacts or Glasses Denies: Hx Cataracts, Hx Glaucoma, Hx Hearing Aid Opthamlomology History: Reports: Hx Contacts or Glasses Denies: Hx Cataracts, Hx Glaucoma Neurological History: Reports: Other Neuro Impairments/Disorders - PAIN CLINIC PT Denies: Hx Dementia, Hx Headaches, Hx Seizures, Hx Transient Ischemic Attacks (TIA) Psychiatric History: Denies: Hx Panic Disorder - Cancer History Cancer Type, Location and Year: Recently diagnosed skin cancer near anus Hx Chemotherapy: No Hx Radiation Therapy: No - Surgical History Surgery Procedure, Year, and Place: AGE 16 Appendectomy. 1970s HYSTERECTOMY & Hernia Repair [facility]. 2000s Cararact Right Eye [facility] Hx Anesthesia Reactions: Yes - SLOW TO WAKE UP Infectious Disease History: Denies: Traveled Outside the [place] in Last 30 Days - Family History Known Family History: Positive: Other - No FMHx of Breast CA - Social History Alcohol Use: None Hx Substance Use: No Substance Use Type: Reports: None Substance Use Comment - Amount & Last Used: fentanyl and norcp Hx Tobacco Use: Yes Smoking Status (MU): Former Smoker Type: Cigarettes Amount Used/How Often: 1PPD 60+ YEARS Have You Smoked in the Last Year: No Review of Systems Positive: Fatigue Eyes: Negative ENT: Negative Cardiovascular: Negative Negative: Chest Pain Positive: Shortness Of Breath, Cough Gastrointestinal: Negative Genitourinary: Negative Positive: Other - Sharp pains in L leg Skin: Negative Neurological: Other - Shakiness Positive: Weakness Psychological: Normal All Other Systems Reviewed And Are Negative: Yes Physical Exam Triage Information Reviewed: Yes Vital Signs On Initial Exam: Initial Vitals Temp Pulse Resp BP Pulse Ox 99.0 F 78 20 82/34 85 10/27/16 11:15 10/27/16 11:15 10/27/16 11:15 10/27/16 11:15 10/27/16 11:15 Vital Signs Reviewed: Yes Appearance: Positive: Well-Appearing, Ill-Appearing - short of breath Skin: Positive: Warm, Skin Color Reflects Adequate Perfusion Head/Face: Positive: Normal Head/Face Inspection ENT: Positive: Normal ENT inspection, Pharynx normal Neck: Positive: Nontender Respiratory/Lung Sounds: Positive: Decreased Breath Sounds - bilateral Cardiovascular: Positive: RRR. Negative: Murmur Abdomen Description: Positive: Nontender Musculoskeletal: Positive: Edema Left, Edema Right, Other - chronic skin changes both legs, with bilateral edema. Neurological: Positive: Sensory/Motor Intact, Alert, Oriented to Person Place, Time, CN Intact II-III Psychiatric: Positive: Normal Diagnostics - Vital Signs Vital Signs Temp Pulse Resp BP Pulse Ox 10/27/16 11:15 99.0 F 78 20 82/34 85 - Laboratory Result Diagrams: 10/27/16 12:08 10/27/16 12:08 Lab Statement: Any lab studies that have been ordered have been reviewed, and results considered in the medical decision making process. - Radiology CXR Xray Interpretation: No Acute Changes - No radiographic evidence for acute cardiopulmonary abnormality on this portable chest x-ray. Radiology Interpretation Completed By: Radiologist - Ultrasound No standard instances Ultrasound Interpretation: Positive (See Comments) - ANGELIKA DOPPLER STUDY - 1. No evidence for popliteal or more proximal LEFT lower extremity DVT. 2. Probable nonocclusive thrombosis of the paired LEFT lower extremity posterior tibial and peroneal calf veins. Small size limits assessment. 3. Extensive knee and lower leg subcutaneous edema. Ultrasound Interpretation Completed By: Radiologist - EKG 1 EKG Interpretation: 11:27 - SINUS RHYTHM @ 71 BPM. NO STEMI Complex Multi-Symp Course/Dx - Diagnoses Provider Diagnoses: SOB (shortness of breath), Leg pain, left Discharge - Discharge Plan Condition: Good Disposition: ADMITTED TO [facility] The documentation as recorded by the Patricia campoverde Edward accurately reflects the service I personally performed and the decisions made by Rosemary mauro Walter, MD.
[2016-10-27] MEDS ORDERED: fentaNYL Patch Check Q Shift 1 NOTE SCH (19:00)
--- NOTE | 2016-10-27 19:13 | RAD ---
INDICATION: Change in mental status. COMPARISON: There are no prior studies available for comparison. TECHNIQUE: Contiguous axial sections of the brain were obtained from the skull base to the vertex without contrast. FINDINGS: The ventricles, cisterns and sulci are enlarged consistent with diffuse atrophy. There are small areas of decreased density in the subcortical and periventricular white matter suggestive of mild chronic small vessel ischemic changes. There are calcifications within the basal ganglia. No other focal abnormality or mass effect is seen. There is no evidence for hemorrhage. No significant focal osseous abnormality is seen. The visualized portion of the paranasal sinuses and mastoid air cells appear clear. IMPRESSION: NO EVIDENCE FOR ACUTE INTRACRANIAL ABNORMALITY.
[2016-10-27] MEDS ORDERED: Naloxone* 0.4 MG/ML 1 ML VIAL IV PUSH ONE (19:17)
[2016-10-27] MEDS: Budesonide NEB* 0.5 MG/2 ML NEB.SOLN INH SCH (20:50)
[2016-10-27] MEDS: Mometasone 220 MCG MDI INH SCH (20:51)
[2016-10-27] MEDS: Heparin VIAL(*) 5000 UNITS/ML VIAL (FIVE THOUSAND) SUBCUT SCH (21:15)
--- NOTE | 2016-10-28 00:10 | HP ---
CC: Dorene Abernathy MD * HISTORY AND PHYSICAL: DATE OF ADMISSION: 10/27/16 PRIMARY CARE PROVIDER: Dorene Abernathy MD. ATTENDING PHYSICIAN: Tanna Suresh MD * (dictated by Juanita Gordon NP) CHIEF COMPLAINT: Shaking and just generally not feeling well. HISTORY OF PRESENT ILLNESS: Ms. Contreras is an 86-year-old female with past medical history significant for chronic obstructive pulmonary disease, on home O2, chronic kidney disease stage 3, chronic pain, hypertension, hyperlipidemia, restless leg syndrome and squamous cell skin cancer, who presents to the emergency room with complaints of shaking and feeling sick. Patient is unable to really elaborate on her symptoms, although she states that she just generally does not feel well overall. Patient denies any fever, chills, chest pain. She reports a persistent cough that is occasionally productive. She feels that her shortness of breath is near its baseline. She denies any nausea , vomiting, diarrhea. She denies urinary symptoms but states that she has some dysuria with urination due to the location of her skin cancer on her buttocks. The patient generally uses oxygen at 3 L via nasal cannula at home. Due to her not feeling well, she decided to present to the emergency room for further evaluation of her symptoms. While in the emergency room, the patient received DuoNeb, aspirin and Solu- Medrol. She had a chest x-ray showing no abnormalities. She had an EKG showing sinus rhythm and a rate of 71. She had labs that were significant for potassium of 5.5. She had troponin of 0.06, BNP of 343 and elevated white blood cell count of 14.8. The patient was also reportedly complaining of chest discomfort, although she denied chest pain to me. The hospitalists were asked to evaluate her for admission. PAST MEDICAL HISTORY: 1. COPD, on 3 L via nasal cannula supplemental oxygen at home. 2. Chronic kidney disease, stage 3. 3. Chronic pain. 4. Hypertension. 5. Hyperlipidemia. 6. Restless leg syndrome. 7. Squamous cell skin carcinoma. 8. Diastolic heart failure with preserved EF. PAST SURGICAL HISTORY: 1. Status post total abdominal hysterectomy. 2. Status post inguinal hernia repair. 3. Status post appendectomy at age 16 or 17. HOME MEDICATIONS: Include: 1. Silvadene 1% apply topical twice daily to area. 2. Xanax 0.25 mg oral twice daily as needed for anxiety. 3. Pulmicort 180 mcg inhaler 2 puffs twice daily. 4. Furosemide 40 mg oral daily. 5. Lisinopril 20 mg oral daily. 6. Ipratropium bromide 0.02% nebulizer inhalation 4 times daily for breathing. 7. Albuterol sulfate nebulizer 2.5 mg/3 mL one nebulizer 4 times daily. 8. Methyl B12 one tablet oral daily. 9. Potassium chloride ER 10 mEq oral daily. 10. Combivent Respimat 20/100 mcg one puff inhalation 4 times daily as needed for shortness of breath or wheeze. 11. Ferrous sulfate 325 mg oral daily. 12. Calcium-D one capsule oral twice daily. 13. Aspirin 81 mg oral daily. 14. Gabapentin 300 mg oral 3 times daily and two daily at bedtime for leg pain. ALLERGIES: CODEINE and SULFA. FAMILY HISTORY: The patient denies any family history of coronary artery disease or diabetes mellitus. The patient had a paternal aunt with a history of breast cancer. SOCIAL HISTORY: The patient denies current tobacco use. She is a former smoker and reports quitting smoking many years ago. She denies alcohol or recreational drug use. The patient's daughter, Rita Hurley, will be her surrogate decision maker in the event she is unable to make decisions for herself. REVIEW OF SYSTEMS: I performed a 14-point review of systems. All the pertinent positives and negatives are mentioned in the history of present illness. The remaining review of systems are negative. PHYSICAL EXAMINATION GENERAL APPEARANCE: The patient is an elderly female, lying on the hospital stretcher. She is alert, pleasant and appears to be in no acute distress. VITAL SIGNS: Temperature 98.1, heart rate 81, respiratory rate 12, O2 sat 92% on 5 L via nasal cannula, blood pressure 104/46. HEENT: Normocephalic, atraumatic. Pupils are equal and reactive to light. Extraocular movements are intact. RESPIRATORY: There is no accessory muscle use. The lungs are clear to auscultation but diminished bilateral. CARDIOVASCULAR: Regular rate and rhythm. S1 and S2 present. There is no murmurs, rubs or gallops heard. ABDOMEN: Soft, nontender, nondistended. There are bowel sounds present x4. EXTREMITIES: The patient has 1 to 2+ lower extremity edema. DP and PT pulses are 2+ and symmetric. MUSCULOSKELETAL: There is no clubbing or cyanosis noted. The patient exhibits good strength in all extremities. NEUROLOGIC: The patient is alert and oriented x4. Cranial nerves II through XII are grossly intact. PSYCHOLOGICAL: The patient is calm and cooperative. SKIN: The patient has some mild erythema to both shins and some scaly skin on the left skin. DIAGNOSTIC STUDIES/LABORATORY DATA: Sodium 131, potassium 5.5, chloride 96, CO2 of 31, BUN 59, creatinine 2.65, glucose 101. White blood cell count 14.8, hemoglobin 9.6, hematocrit 31, and platelet count 254,000. Troponin 0.06. BNP 343. 1. EKG from today shows sinus rhythm and rate of 61. There are no acute signs of ischemia noted. This EKG is similar to previous EKG from 07/17/16. 2. Chest x-ray from today. Radiologist's impression: No radiographic evidence for acute cardiopulmonary abnormality on this portable chest x-ray. 3. Venous Doppler study of the left lower extremity from today. Radiologist impression: No evidence for popliteal or more proximal left lower extremity DVT. Probable non-occlusive thrombus of the paired left lower extremity posterior tibial and peroneal calf veins. Small size limit. Assessment: Extensive knee and lower leg subcutaneous edema. IMPRESSION: Ms. Contreras is an 86-year-old female with past medical history for chronic obstructive disease on home O2, chronic kidney disease stage 3, chronic pain, hypertension, hyperlipidemia, restless leg syndrome, and squamous cell skin cancer, who presents to the emergency room today and reports just generally not feeling well. She will be admitted as an observation for chronic obstructive pulmonary disease exacerbation and chest pain to rule out acute coronary syndrome. ASSESSMENT/PLAN: 1. Chronic obstructive pulmonary disease exacerbation. The patient currently does not have any wheezing and her lung sounds are diminished. She is requiring more oxygen than usual. Her home oxygen is 3 L via nasal cannula. She is currently requiring 5 L to maintain her sats in the low 90s. We will continue the patient on steroids. We will give her azithromycin monotherapy. We will continue her on her inhalers and provide [id number] breathing treatments. 2. Chest pain, rule out acute coronary syndrome. The patient is not currently complaining of chest pain. We will trend her troponins. Her troponin actually appears to be at her baseline. I suspect her baseline is an elevated troponin due to her chronic kidney disease, but we will trend her troponins and monitor her on telemetry. 3. Elevated troponin. Again, the troponin appears to be at baseline and consistent with her chronic kidney disease. She appears to have been elevated since 2016. 4. Non-occlusive left lower extremity deep venous thrombosis. At this time, I will check a V/Q scan as we are unable to do a CTA of the patient's chest due to her renal function. I discussed with her the possibilities of needing to be anticoagulated but due to her being asymptomatic that she could have a repeat scan to evaluate the clot in 1 week and hold off on anticoagulation or she could go on anticoagulation. The patient would like to wait and see if she has a pulmonary embolus before deciding if she would like to go on anticoagulation. I would also like to discuss this with her daughter. It was discussed with the patient that there was still a low risk of a pulmonary embolus with the current deep venous thrombosis that she has, so for now, we will hold off on anticoagulation. 5. Hyperkalemia. At this time, we are going to see if the patient's potassium falls down on its own. We will hold on medications and recheck her potassium in the morning. 6. Leukocytosis. The patient does have elevated white blood cell count. At this point, her chest x-ray looks clear. We will get urinalysis and see if her urine could be the source of her leukocytosis. 7. Chronic kidney disease, stage 3. The patient's kidney function actually appears to be worse than her normal. We will monitor this for now. We may consider giving her some gentle IV hydration with caution. 8. Chronic pain. The patient will be continued on her home fentanyl patch and gabapentin that she takes for restless syndrome. 9. Restless leg syndrome. Continue patient on her gabapentin. 10. Hypertension. We will continue the patient on her home lisinopril, although if she continues to be on the hypotensive side, we will hold her lisinopril. 11. Diastolic heart failure with preserved EF. Last EF 03/2015 shows an EF of 65% 12. Fluids, electrolytes, and nutrition. The patient will be on a heart healthy diet. 13. Code status. Full code. 14. DVT prophylaxis. Patient is at a high risk and will be placed on subcu heparin. 15. Disposition. Observation. TIME SPENT: Time for this admission was approximately 60 minutes; greater than half of that was spent with the patient discussing medications, past medical history, events leading up to her arrival today, performing a physical examination. The case has been reviewed with the attending Dr. Suresh, who agrees with the plan of care. Reviewed by BELLA REYNA 10/29/16 1211 [id number]/[facility] #: [id number] VERENA
[2016-10-28] MEDS: NS 0.9% 1000 ML* 1,000 ML IV SCH ×3 (02:22→14:15)
[2016-10-28 05:14] LABS: Hematocrit 26 % (35-47); Hemoglobin 8.6 g/dl (12.0-16.0); Mean Corpuscular HGB Conc 33 g/dl (31-36); Mean Corpuscular Hemoglobin 31 pg (27-31); Mean Corpuscular Volume 95 fL (80-97); Mean Platelet Volume 8 um3 (7.4-10.4); Red Blood Count 2.79 10^6/ul (4.0-5.4); Red Cell Distribution Width 14 % (10.5-15); White Blood Count 9.3 10^3/ul (3.5-10.8)
[2016-10-28] MEDS: Heparin VIAL(*) 5000 UNITS/ML VIAL (FIVE THOUSAND) SUBCUT SCH ×2 (05:29→20:28)
[2016-10-28 05:35] LABS: BUN/Creatinine Ratio 25.9 (8-20); Calcium 8.7 mg/dL (8.6-10.3); EGFR African American 23.4 (>60); EGFR Non-African American 18.2 (>60); Potassium 5.4 mmol/L (3.5-5.0)
[2016-10-28 07:08] LABS: Urine Bacteria Absent (Absent); Urine Bilirubin Negative (Negative); Urine Glucose Negative (Negative); Urine Nitrite Negative (Negative)
[2016-10-28] MEDS: Budesonide NEB* 0.5 MG/2 ML NEB.SOLN INH SCH ×2 (08:08→22:15)
[2016-10-28] MEDS: Ipratropium 0.5MG/2.5ML NEB* 0.5 MG/2.5 ML NEB.SOLN INH SCH (08:08)
[2016-10-28] MEDS: Aspirin EC Low Dose* 81 MG TAB.EC PO SCH (09:00)
[2016-10-28] MEDS ORDERED: Furosemide TAB* 40 MG PO SCH (09:00)
[2016-10-28] MEDS ORDERED: Lisinopril TAB* 10 MG PO SCH (09:00)
[2016-10-28] MEDS: Ferrous Sulfate TAB* 325 MG PO SCH (09:00)
[2016-10-28] MEDS: Azithromycin TAB* 250 MG PO SCH (09:01)
[2016-10-28] MEDS: predniSONE TAB* 20 MG PO SCH (09:01)
--- NOTE | 2016-10-28 10:42 | PN ---
Subjective Date of Service: 10/28/16 Interval History: Patient seen and examined at bedside. She denies fever/chills, CP, though her daughter reports that she was having sharp pains at home. Patient feels as if her breathing is a little better today. During my evaluation, I noted a Fentanyl patch to the patient's left back. Patient's daughter states that she placed it there because her mother has severe pain and can't go with out. Discussion had with daughter about concern for oversedation, given mother's acute illness. She verbalized understanding and agrees to not give her mother any more medications and to discuss with nursing. We also discussed the small non-occlusive DVT, which is considered a superficial thrombosis per literature. Ms. Contreras is not a candidate for Eliquis and Xarelto given her renal function, weight, and age. She does not want to start warfarin so they will follow-up with PCP in outpatient setting for further monitoring and management of the thrombosis. Family History: Unchanged from Admission Social History: Unchanged from Admission Past Medical History: Unchanged from Admission Objective Active Medications: Albuterol (Ventolin 2.5 Mg/3 Ml Neb.Shahrzad*) 2.5 mg INH QID PRN PRN Reason: SHORTNESS OF BREATH Alprazolam (Xanax Tab*) 0.25 mg PO BID PRN PRN Reason: ANXIETY Aspirin (Aspirin Ec Low Dose*) 81 mg PO DAILY [facility] Last Admin: 10/28/16 09:00 Dose: 81 mg Azithromycin (Zithromax Tab*) 250 mg PO DAILY [facility] Stop: 11/01/16 08:59 Last Admin: 10/28/16 09:01 Dose: 250 mg Budesonide (Pulmicort Neb*) 0.5 mg INH RT.BID [facility] Last Admin: 10/28/16 08:08 Dose: 0.5 mg Ferrous Sulfate (Ferrous Sulfate Tab*) 325 mg PO DAILY [facility] Last Admin: 10/28/16 09:00 Dose: 325 mg Heparin Sodium (Porcine) (Heparin Vial(*)) 5,000 units SUBCUT Q8HR [facility] Last Admin: 10/28/16 05:29 Dose: 5,000 units Sodium Chloride (Ns 0.9% 1000 Ml*) 1,000 mls @ 100 mls/hr IV PER RATE [facility] Last Admin: 10/28/16 02:22 Dose: 100 mls/hr Ipratropium [place] (Atrovent 0.5 Mg Neb.Shahrzad*) 0.5 mg INH QID [facility] Last Admin: 10/28/16 08:08 Dose: 0.5 mg Mometasone Furoate (Asmanex 220 Mcg Mdi *) 1 puff INH BEDTIME [facility] Last Admin: 10/27/16 20:51 Dose: Not Given Nystatin (Nystatin Oint*) 1 applic TOPICAL TID PRN PRN Reason: RASH Prednisone (Deltasone Tab*) 40 mg PO DAILY [facility] Last Admin: 10/28/16 09:01 Dose: 40 mg Triamcinolone Acetonide (Triamcinolone 0.025% Oint *) 1 applic TOPICAL BID PRN PRN Reason: ITCHING Vital Signs 10/27/16 10/27/16 10/27/16 12:15 12:23 12:30 Temperature Pulse Rate 75 72 71 Respiratory 15 16 15 Rate Blood Pressure 97/36 101/46 (mmHg) O2 Sat by Pulse 100 100 100 Oximetry 10/27/16 10/27/16 10/27/16 13:03 15:13 16:00 Temperature 98.1 F 98.0 F Pulse Rate 81 95 Respiratory 12 20 Rate Blood Pressure 104/46 83/31 (mmHg) O2 Sat by Pulse 92 100 95 Oximetry 10/27/16 10/27/16 10/27/16 16:42 16:45 16:53 Temperature Pulse Rate Respiratory 18 18 Rate Blood Pressure 85/46 (mmHg) O2 Sat by Pulse Oximetry 10/27/16 10/27/16 10/27/16 18:00 18:45 19:05 Temperature Pulse Rate Respiratory 16 18 22 Rate Blood Pressure (mmHg) O2 Sat by Pulse Oximetry 10/27/16 10/27/16 10/27/16 19:57 20:00 20:16 Temperature 97.5 F Pulse Rate 82 Respiratory 18 20 Rate Blood Pressure 132/60 132/61 (mmHg) O2 Sat by Pulse 100 Oximetry 10/27/16 10/27/16 10/27/16 20:45 21:00 21:08 Temperature Pulse Rate Respiratory 18 17 18 Rate Blood Pressure (mmHg) O2 Sat by Pulse Oximetry 10/27/16 10/27/16 10/27/16 22:00 23:00 23:38 Temperature Pulse Rate Respiratory 18 21 Rate Blood Pressure (mmHg) O2 Sat by Pulse 88 Oximetry 10/27/16 10/28/16 10/28/16 23:48 00:00 01:00 Temperature 97.5 F Pulse Rate 89 Respiratory 18 16 17 Rate Blood Pressure 113/47 (mmHg) O2 Sat by Pulse 100 Oximetry 10/28/16 10/28/16 10/28/16 01:38 02:00 03:00 Temperature Pulse Rate Respiratory 17 16 Rate Blood Pressure (mmHg) O2 Sat by Pulse 100 Oximetry 10/28/16 10/28/16 10/28/16 03:41 04:00 05:00 Temperature 97.6 F Pulse Rate 88 Respiratory 18 15 10 Rate Blood Pressure 128/38 (mmHg) O2 Sat by Pulse 100 Oximetry 10/28/16 10/28/16 10/28/16 06:00 07:00 07:38 Temperature 97.5 F Pulse Rate 85 Respiratory 14 19 28 Rate Blood Pressure 125/50 (mmHg) O2 Sat by Pulse 100 Oximetry 10/28/16 10/28/16 08:00 08:12 Temperature Pulse Rate 82 Respiratory 22 30 Rate Blood Pressure (mmHg) O2 Sat by Pulse 98 95 Oximetry Oxygen Devices in Use Now: Nasal Cannula Appearance: Elderly female, OOB to chair, in NAD Eyes: No Scleral Icterus Ears/Nose/Mouth/Throat: Mucous Membranes Moist Neck: NL Appearance and Movements; NL JVP Respiratory: Symmetrical Chest Expansion and Respiratory Effort, - - Diminished lung sounds with exp wheezes Cardiovascular: NL Sounds; No Murmurs; No JVD, RRR Abdominal: NL Sounds; No Tenderness; No Distention Extremities: No Clubbing, Cyanosis, - - 1+ BLE edema Skin: - - 2 wounds, one by anus and one on left buttock - present on admission Neurological: Alert and Oriented x 3, NL Muscle Strength and Tone Lines/Tubes/Other Access: Clean, Dry and Intact Peripheral IV Nutrition: Taking PO's Result Diagrams: 10/28/16 04:32 10/28/16 04:32 Assess/Plan/Problems-Billing Assessment: Ms. Contreras is an 86 yo female with a PMH of COPD on home O2, CKD stage 3, chronic pain, HTN, HLD, restless leg sx, and squamous cell skin ca who presented to the ED on 10/27 with malaise that is secondary to COPD exacerbation. - Patient Problems (1) COPD (chronic obstructive pulmonary disease) Code(s): J44.9 - CHRONIC OBSTRUCTIVE PULMONARY DISEASE, UNSPECIFIED Comment: With exacerbation Patient currently requiring 5L, though her baseline O2 requirement is 3Lnc Continue prednisone, inhalers, nebulizers, azithromycin (2) Chronic respiratory failure Code(s): J96.10 - CHRONIC RESPIRATORY FAILURE, UNSP W HYPOXIA OR HYPERCAPNIA Comment: Secondary to COPD 3L chronic use at baseline (3) Wounds, multiple Code(s): T07 - UNSPECIFIED MULTIPLE INJURIES Comment: To buttocks Secondary to skin cancer, per pt's daughter Continue home silver sulfazadine (pt has been using at home in spite of sulfa allergy) and triamcinolone cream Wound care consult (4) Elevated troponin Code(s): R79.89 - OTHER SPECIFIED ABNORMAL FINDINGS OF BLOOD CHEMISTRY Comment : Patient currently denying CP Troponin within patient's previous baseline Elevation likely secondary to demand ischemia and CKD Troponin appears to have been elevated since 2016. (5) Deep vein thrombosis (DVT) of left lower extremity Code(s): I82.402 - ACUTE EMBOLISM AND THOMBOS UNSP DEEP VEINS OF L LOW EXTREM Comment: Patient is asymptomatic. Doppler shows non-occlusive left lower extremity deep venous thrombosis of posterior tibial and peroneal veins. VQ scan does not show evidence of PE; unable to obtain CTA due to renal function. Patient has opted not to anticoagulate at this time since she is asymptomatic but was advised to have follow-up US to monitor size of clot. Patient declining warfarin at this time. (6) Hyperkalemia Code(s): E87.5 - HYPERKALEMIA Comment: May be secondary to supplemental K+ replacement Continue to hold and follow BMP (7) Leukocytosis Code(s): D72.829 - ELEVATED WHITE BLOOD CELL COUNT, UNSPECIFIED Comment: Resolved Suspect secondary to COPD exacerbation (8) CKD (chronic kidney disease) Code(s): N18.9 - CHRONIC KIDNEY DISEASE, UNSPECIFIED Comment: Creatinine elevated. Continue to trend. Acute on chronic kidney injury Continue IVF (9) Chronic pain Code(s): G89.29 - OTHER CHRONIC PAIN Comment: Continue her home dose Fentanyl patch, gabapentin. (10) HTN (hypertension) Code(s): I10 - ESSENTIAL (PRIMARY) HYPERTENSION Comment: Hypotensive/normotensive Hold home lisinopril (11) Restless legs syndrome (RLS) Comment: Continue gabapentin. (12) DVT prophylaxis Comment: SQ heparin Status and Disposition: Inpatient admission. Dc to home when medically stable.
[2016-10-28] MEDS ORDERED: Gabapentin CAP(*) 300 MG PO ONE (10:48)
[2016-10-28] MEDS ORDERED: Apixaban* 5 MG TAB PO SCH (11:00)
[2016-10-28] MEDS ORDERED: fentaNYL PATCH 12 MCG/HR TRANSDERM SCH (11:00)
[2016-10-28] MEDS ORDERED: Albuterol/Ipratropium NEB.SOL* Albuterol 2.5 MG/Ipratropium 0.5 MG 3 ML INH PRN (11:22)
[2016-10-28] MEDS: guaiFENesin ER TAB 600 MG PO SCH ×2 (12:00→20:28)
[2016-10-28] MEDS ORDERED: Gabapentin CAP(*) 300 MG PO SCH (12:00)
[2016-10-28] MEDS ORDERED: Silver Sulfadiazine 1%* 50 GM JAR TOPICAL SCH (12:15)
[2016-10-28] MEDS: Albuterol/Ipratropium NEB.SOL* Albuterol 2.5 MG/Ipratropium 0.5 MG 3 ML INH SCH ×3 (13:29→22:15)
[2016-10-28] MEDS: Gabapentin CAP(*) 100 MG PO SCH ×4 (15:07→20:28)
[2016-10-28] MEDS: Silver Sulfadiazine 1%* 20 GM TOPICAL SCH ×2 (16:00→20:29)
[2016-10-28] MEDS: fentaNYL Patch Check Q Shift 1 NOTE SCH (18:59)
[2016-10-28] MEDS: Mometasone 220 MCG MDI INH SCH (22:14)
[2016-10-29] MEDS: Albuterol/Ipratropium NEB.SOL* Albuterol 2.5 MG/Ipratropium 0.5 MG 3 ML INH SCH ×6 (03:12→23:10)
[2016-10-29 05:01] LABS: BUN/Creatinine Ratio 31.6 (8-20); Calcium 9.2 mg/dL (8.6-10.3); EGFR African American 31.7 (>60); EGFR Non-African American 24.6 (>60); Potassium 4.7 mmol/L (3.5-5.0)
[2016-10-29] MEDS: Heparin VIAL(*) 5000 UNITS/ML VIAL (FIVE THOUSAND) SUBCUT SCH ×3 (06:10→20:41)
[2016-10-29] MEDS: fentaNYL Patch Check Q Shift 1 NOTE SCH ×2 (08:30→19:20)
[2016-10-29] MEDS: Gabapentin CAP(*) 100 MG PO SCH ×4 (08:33→21:09)
[2016-10-29] MEDS: guaiFENesin ER TAB 600 MG PO SCH ×2 (08:33→20:37)
[2016-10-29] MEDS: predniSONE TAB* 20 MG PO SCH (08:34)
[2016-10-29] MEDS: Aspirin EC Low Dose* 81 MG TAB.EC PO SCH (08:34)
[2016-10-29] MEDS: Ferrous Sulfate TAB* 325 MG PO SCH (08:34)
[2016-10-29] MEDS: Azithromycin TAB* 250 MG PO SCH (08:34)
[2016-10-29] MEDS: Budesonide NEB* 0.5 MG/2 ML NEB.SOLN INH SCH ×2 (08:39→20:06)
[2016-10-29] MEDS: Silver Sulfadiazine 1%* 20 GM TOPICAL SCH ×2 (09:50→20:38)
--- NOTE | 2016-10-29 10:04 | PN ---
Subjective Date of Service: 10/29/16 Interval History: Patient seen and examined at bedside. She reports feeling much better, denies any pain at this time. Denies fever/chills, CP, n/v. Reports that her wounds are a little better but still sore. No other acute concerns at this time. Family History: Unchanged from Admission Social History: Unchanged from Admission Past Medical History: Unchanged from Admission Objective Active Medications: Albuterol/Ipratropium (Duoneb (Albuterol 2.5 Mg/Ipratropium 0.5 Mg)) 1 neb INH Q2H PRN PRN Reason: SOB/WHEEZING Albuterol/Ipratropium (Duoneb (Albuterol 2.5 Mg/Ipratropium 0.5 Mg)) 1 neb INH [id number] AWAKE [facility] Last Admin: 10/29/16 08:39 Dose: 1 neb Alprazolam (Xanax Tab*) 0.25 mg PO BID PRN PRN Reason: ANXIETY Last Admin: 10/28/16 21:55 Dose: 0.25 mg Aspirin (Aspirin Ec Low Dose*) 81 mg PO DAILY [facility] Last Admin: 10/29/16 08:34 Dose: 81 mg Azithromycin (Zithromax Tab*) 250 mg PO DAILY [facility] Stop: 11/01/16 08:59 Last Admin: 10/29/16 08:34 Dose: 250 mg Budesonide (Pulmicort Neb*) 0.5 mg INH RT.BID [facility] Last Admin: 10/29/16 08:39 Dose: 0.5 mg Fentanyl (Duragesic Patch 12 Mcg/Hr *) 12 mcg TRANSDERM Q72H [facility] Last Admin: 10/28/16 11:55 Dose: 12 mcg Ferrous Sulfate (Ferrous Sulfate Tab*) 325 mg PO DAILY [facility] Last Admin: 10/29/16 08:34 Dose: 325 mg Gabapentin (Neurontin Cap(*)) 100 mg PO BEDTIME [facility] Last Admin: 10/28/16 20:27 Dose: 100 mg Gabapentin (Neurontin Cap(*)) 100 mg PO TID [facility] Last Admin: 10/29/16 08:33 Dose: 100 mg Guaifenesin (Mucinex*) 1,200 mg PO BID [facility] Last Admin: 10/29/16 08:33 Dose: 1,200 mg Heparin Sodium (Porcine) (Heparin Vial(*)) 5,000 units SUBCUT Q8HR [facility] Last Admin: 10/29/16 06:10 Dose: 5,000 units Mometasone Furoate (Asmanex 220 Mcg Mdi *) 1 puff INH BEDTIME [facility] Last Admin: 10/28/16 22:14 Dose: 1 puff Nystatin (Nystatin Oint*) 1 applic TOPICAL TID PRN PRN Reason: RASH Pharmacy Profile Note (Fentanyl Patch Check Q Shift) 1 note N/A 0700,1900 [facility] Last Admin: 10/29/16 08:30 Dose: 1 note Prednisone (Deltasone Tab*) 40 mg PO DAILY [facility] Last Admin: 10/29/16 08:34 Dose: 40 mg Silver Sulfadiazine (Silvadine 1%*) 1 applic TOPICAL BID [facility] Last Admin: 10/29/16 09:50 Dose: 1 applic Triamcinolone Acetonide (Triamcinolone 0.025% Oint *) 1 applic TOPICAL BID PRN PRN Reason: ITCHING Vital Signs 10/28/16 10/28/16 10/28/16 10:00 11:00 11:31 Temperature 98.1 F Pulse Rate 81 Respiratory 21 21 18 Rate Blood Pressure 105/52 (mmHg) O2 Sat by Pulse 100 Oximetry 10/28/16 10/28/16 10/28/16 11:55 12:00 13:00 Temperature Pulse Rate Respiratory 20 20 20 Rate Blood Pressure (mmHg) O2 Sat by Pulse Oximetry 10/28/16 10/28/16 10/28/16 13:30 14:00 15:00 Temperature Pulse Rate 86 Respiratory 22 25 25 Rate Blood Pressure (mmHg) O2 Sat by Pulse 98 Oximetry 10/28/16 10/28/16 10/28/16 15:31 15:47 16:00 Temperature 97.4 F Pulse Rate 91 Respiratory 28 22 25 Rate Blood Pressure 116/54 (mmHg) O2 Sat by Pulse 99 99 Oximetry 10/28/16 10/28/16 10/28/16 16:15 17:00 17:31 Temperature Pulse Rate Respiratory 20 22 Rate Blood Pressure (mmHg) O2 Sat by Pulse 99 Oximetry 10/28/16 10/28/16 10/28/16 18:00 18:58 19:00 Temperature Pulse Rate 99 Respiratory 26 28 21 Rate Blood Pressure (mmHg) O2 Sat by Pulse 98 Oximetry 10/28/16 10/28/16 10/28/16 19:28 20:00 20:27 Temperature 98.3 F Pulse Rate 97 Respiratory 17 22 20 Rate Blood Pressure 127/49 (mmHg) O2 Sat by Pulse 98 Oximetry 10/28/16 10/28/16 10/28/16 20:28 21:00 21:55 Temperature Pulse Rate Respiratory 20 13 28 Rate Blood Pressure (mmHg) O2 Sat by Pulse Oximetry 10/28/16 10/28/16 10/28/16 22:00 22:16 22:25 Temperature Pulse Rate 88 Respiratory 13 16 13 Rate Blood Pressure (mmHg) O2 Sat by Pulse 99 Oximetry 10/28/16 10/28/16 10/28/16 22:27 22:28 23:00 Temperature Pulse Rate Respiratory 19 19 16 Rate Blood Pressure (mmHg) O2 Sat by Pulse Oximetry 10/28/16 10/28/16 10/29/16 23:55 23:57 00:00 Temperature 97.5 F Pulse Rate 85 Respiratory 20 20 14 Rate Blood Pressure 115/52 (mmHg) O2 Sat by Pulse 100 100 Oximetry 10/29/16 10/29/16 10/29/16 01:00 02:00 03:00 Temperature Pulse Rate Respiratory 16 16 15 Rate Blood Pressure (mmHg) O2 Sat by Pulse Oximetry 10/29/16 10/29/16 10/29/16 03:49 04:00 05:00 Temperature 97.4 F Pulse Rate 76 Respiratory 20 6 17 Rate Blood Pressure 129/51 (mmHg) O2 Sat by Pulse 100 Oximetry 10/29/16 10/29/16 10/29/16 06:00 07:00 07:24 Temperature 97.8 F Pulse Rate 76 Respiratory 23 8 18 Rate Blood Pressure 133/64 (mmHg) O2 Sat by Pulse 100 Oximetry 10/29/16 10/29/16 08:33 08:42 Temperature Pulse Rate 94 Respiratory 20 16 Rate Blood Pressure (mmHg) O2 Sat by Pulse 93 Oximetry Oxygen Devices in Use Now: Nasal Cannula Appearance: Cachectic, elderly female, OOB to chair, in NAD Eyes: No Scleral Icterus Ears/Nose/Mouth/Throat: Mucous Membranes Moist Neck: NL Appearance and Movements; NL JVP Respiratory: Symmetrical Chest Expansion and Respiratory Effort, - - diminished lung sounds, exp wheezing Cardiovascular: NL Sounds; No Murmurs; No JVD, RRR Abdominal: NL Sounds; No Tenderness; No Distention Extremities: No Edema, No Clubbing, Cyanosis Neurological: Alert and Oriented x 3 Lines/Tubes/Other Access: Clean, Dry and Intact Peripheral IV Nutrition: Taking PO's Result Diagrams: 10/28/16 04:32 10/29/16 04:35 Microbiology and Other Data: Microbiology 10/27/16 12:31 Aerobic Blood Culture - Preliminary Blood Venous No Growth Day 1 Anaerobic Blood Culture - Preliminary No Growth Day 1 10/27/16 12:31 Aerobic Blood Culture - Preliminary Blood Venous No Growth Day 1 Anaerobic Blood Culture - Preliminary No Growth Day 1 Assess/Plan/Problems-Billing Assessment: Ms. Contreras is an 86 yo female with a PMH of COPD on home O2, CKD stage 3, chronic pain, HTN, HLD, restless leg sx, and squamous cell skin ca who presented to the ED on 10/27 with malaise that is secondary to COPD exacerbation. - Patient Problems (1) COPD (chronic obstructive pulmonary disease) Code(s): J44.9 - CHRONIC OBSTRUCTIVE PULMONARY DISEASE, UNSPECIFIED Comment: With exacerbation Patient currently requiring 5L, though her baseline O2 requirement is 3Lnc Continue prednisone, inhalers, nebulizers, azithromycin (2) Chronic respiratory failure Code(s): J96.10 - CHRONIC RESPIRATORY FAILURE, UNSP W HYPOXIA OR HYPERCAPNIA Comment: Secondary to COPD 3L chronic use at baseline (3) Wounds, multiple Code(s): T07 - UNSPECIFIED MULTIPLE INJURIES Comment: To buttocks Secondary to skin cancer, per pt's daughter Continue home silver sulfazadine (pt has been using at home in spite of sulfa allergy) and triamcinolone cream Wound care consult Continue outpt follow up with Dr. Roberts (4) Elevated troponin Code(s): R79.89 - OTHER SPECIFIED ABNORMAL FINDINGS OF BLOOD CHEMISTRY Comment : Patient currently denying CP Troponin within patient's previous baseline Elevation likely secondary to demand ischemia and CKD Troponin appears to have been elevated since 2016. (5) Deep vein thrombosis (DVT) of left lower extremity Code(s): I82.402 - ACUTE EMBOLISM AND THOMBOS UNSP DEEP VEINS OF L LOW EXTREM Comment: Patient is asymptomatic. Doppler shows non-occlusive, distal, left lower extremity deep venous thrombosis of posterior tibial and peroneal veins. VQ scan does not show evidence of PE; unable to obtain CTA due to renal function. Patient has opted not to anticoagulate at this time since she is asymptomatic and proximal veins not involved but was advised to have follow-up US to monitor size of clot. Patient declining warfarin at this time. (6) Hyperkalemia Code(s): E87.5 - HYPERKALEMIA Comment: Resolved May be secondary to supplemental K+ replacement (7) Leukocytosis Code(s): D72.829 - ELEVATED WHITE BLOOD CELL COUNT, UNSPECIFIED Comment: Resolved Suspect secondary to COPD exacerbation (8) CKD (chronic kidney disease) Code(s): N18.9 - CHRONIC KIDNEY DISEASE, UNSPECIFIED Comment: Improved Acute on chronic kidney injury (9) Chronic pain Code(s): G89.29 - OTHER CHRONIC PAIN Comment: Continue her home dose Fentanyl patch, gabapentin. (10) HTN (hypertension) Code(s): I10 - ESSENTIAL (PRIMARY) HYPERTENSION Comment: Hypotensive/normotensive Hold home lisinopril (11) Restless legs syndrome (RLS) Comment: Continue gabapentin. (12) DVT prophylaxis Comment: SQ heparin Status and Disposition: Inpatient admission. Dc to home when medically stable.
[2016-10-29] MEDS: Mometasone 220 MCG MDI INH SCH (20:07)
[2016-10-30] MEDS: Albuterol/Ipratropium NEB.SOL* Albuterol 2.5 MG/Ipratropium 0.5 MG 3 ML INH SCH ×3 (03:43→11:41)
[2016-10-30] MEDS: Heparin VIAL(*) 5000 UNITS/ML VIAL (FIVE THOUSAND) SUBCUT SCH ×2 (05:31→13:19)
[2016-10-30 06:08] LABS: BUN/Creatinine Ratio 33.5 (8-20); Calcium 9.6 mg/dL (8.6-10.3); EGFR African American 39.9 (>60); Potassium 4.6 mmol/L (3.5-5.0)
[2016-10-30] MEDS: fentaNYL Patch Check Q Shift 1 NOTE SCH (07:13)
[2016-10-30] MEDS: Azithromycin TAB* 250 MG PO SCH (07:29)
[2016-10-30] MEDS: predniSONE TAB* 20 MG PO SCH (07:30)
[2016-10-30] MEDS: Aspirin EC Low Dose* 81 MG TAB.EC PO SCH (07:30)
[2016-10-30] MEDS: Gabapentin CAP(*) 100 MG PO SCH ×2 (07:30→13:51)
[2016-10-30] MEDS: guaiFENesin ER TAB 600 MG PO SCH (07:30)
[2016-10-30] MEDS: Ferrous Sulfate TAB* 325 MG PO SCH (07:30)
[2016-10-30] MEDS: Silver Sulfadiazine 1%* 20 GM TOPICAL SCH (07:32)
[2016-10-30 08:07] VITALS: BP 158/59
[2016-10-30] MEDS: Budesonide NEB* 0.5 MG/2 ML NEB.SOLN INH SCH (08:18)
--- NOTE | 2016-10-30 10:47 | PN ---
Subjective Date of Service: 10/30/16 Interval History: Patient seen and examined at bedside. She is OOB to chair and on her home [facility] settings. She states she is ready to go home. Denies CP, SOB, leg pain, n/v. Discussed keeping patient on her reduced gabapentin dosing, given her renal function and good pain control at this time. Patient in agreement with this plan. No other acute concerns. Plan discussed with patient's daughter, Rita, who is also in agreement. Family History: Unchanged from Admission Social History: Unchanged from Admission Past Medical History: Unchanged from Admission Objective Active Medications: Albuterol/Ipratropium (Duoneb (Albuterol 2.5 Mg/Ipratropium 0.5 Mg)) 1 neb INH Q2H PRN PRN Reason: SOB/WHEEZING Albuterol/Ipratropium (Duoneb (Albuterol 2.5 Mg/Ipratropium 0.5 Mg)) 1 neb INH [id number] AWAKE [facility] Last Admin: 10/30/16 08:13 Dose: 1 neb Alprazolam (Xanax Tab*) 0.25 mg PO BID PRN PRN Reason: ANXIETY Last Admin: 10/28/16 21:55 Dose: 0.25 mg Aspirin (Aspirin Ec Low Dose*) 81 mg PO DAILY [facility] Last Admin: 10/30/16 07:30 Dose: 81 mg Azithromycin (Zithromax Tab*) 250 mg PO DAILY [facility] Stop: 11/01/16 08:59 Last Admin: 10/30/16 07:29 Dose: 250 mg Budesonide (Pulmicort Neb*) 0.5 mg INH RT.BID [facility] Last Admin: 10/30/16 08:18 Dose: 0.5 mg Fentanyl (Duragesic Patch 12 Mcg/Hr *) 12 mcg TRANSDERM Q72H [facility] Last Admin: 10/28/16 11:55 Dose: 12 mcg Ferrous Sulfate (Ferrous Sulfate Tab*) 325 mg PO DAILY [facility] Last Admin: 10/30/16 07:30 Dose: 325 mg Gabapentin (Neurontin Cap(*)) 100 mg PO BEDTIME [facility] Last Admin: 10/29/16 20:37 Dose: 100 mg Gabapentin (Neurontin Cap(*)) 100 mg PO TID [facility] Last Admin: 10/30/16 07:30 Dose: 100 mg Guaifenesin (Mucinex*) 1,200 mg PO BID [facility] Last Admin: 10/30/16 07:30 Dose: 1,200 mg Heparin Sodium (Porcine) (Heparin Vial(*)) 5,000 units SUBCUT Q8HR [facility] Last Admin: 10/30/16 05:31 Dose: 5,000 units Mometasone Furoate (Asmanex 220 Mcg Mdi *) 1 puff INH BEDTIME [facility] Last Admin: 10/29/16 20:07 Dose: Not Given Nitrofurantoin Macrocrystals (Macrodantin*) 50 mg PO Q6H [facility] Nystatin (Nystatin Oint*) 1 applic TOPICAL TID PRN PRN Reason: RASH Pharmacy Profile Note (Fentanyl Patch Check Q Shift) 1 note N/A 0700,1900 [facility] Last Admin: 10/30/16 07:13 Dose: 1 note Prednisone (Deltasone Tab*) 40 mg PO DAILY [facility] Last Admin: 10/30/16 07:30 Dose: 40 mg Silver Sulfadiazine (Silvadine 1%*) 1 applic TOPICAL BID [facility] Last Admin: 10/30/16 07:32 Dose: 1 applic Triamcinolone Acetonide (Triamcinolone 0.025% Oint *) 1 applic TOPICAL BID PRN PRN Reason: ITCHING Last Admin: 10/29/16 20:46 Dose: 1 applic Vital Signs 10/29/16 10/29/16 10/29/16 11:00 11:11 11:18 Temperature 97.2 F Pulse Rate 68 78 Respiratory 16 16 20 Rate Blood Pressure 116/54 (mmHg) O2 Sat by Pulse 98 100 Oximetry 10/29/16 10/29/16 10/29/16 12:00 12:49 13:00 Temperature Pulse Rate Respiratory 16 19 Rate Blood Pressure (mmHg) O2 Sat by Pulse 100 Oximetry 10/29/16 10/29/16 10/29/16 13:32 14:58 15:14 Temperature 98.3 F Pulse Rate 95 96 Respiratory 20 16 24 Rate Blood Pressure 129/51 (mmHg) O2 Sat by Pulse 96 100 Oximetry 10/29/16 10/29/16 10/29/16 16:00 19:10 20:00 Temperature 98.3 F Pulse Rate 96 98 Respiratory 22 16 Rate Blood Pressure 139/68 (mmHg) O2 Sat by Pulse 97 100 99 Oximetry 10/29/16 10/29/16 10/29/16 20:11 20:37 21:09 Temperature Pulse Rate Respiratory 18 16 Rate Blood Pressure (mmHg) O2 Sat by Pulse 99 Oximetry 10/29/16 10/29/16 10/29/16 22:37 23:09 23:32 Temperature Pulse Rate 86 Respiratory 18 16 16 Rate Blood Pressure 143/63 (mmHg) O2 Sat by Pulse 100 Oximetry 10/30/16 10/30/16 10/30/16 03:35 03:39 03:43 Temperature 97.8 F Pulse Rate 53 80 85 Respiratory 16 24 Rate Blood Pressure 168/83 (mmHg) O2 Sat by Pulse 91 99 Oximetry 10/30/16 10/30/16 10/30/16 07:30 07:39 08:06 Temperature 98.4 F Pulse Rate Respiratory 16 16 20 Rate Blood Pressure 158/59 (mmHg) O2 Sat by Pulse 79 Oximetry 10/30/16 10/30/16 08:14 09:30 Temperature Pulse Rate 96 Respiratory 16 18 Rate Blood Pressure (mmHg) O2 Sat by Pulse 97 Oximetry Oxygen Devices in Use Now: Nasal Cannula Appearance: Frail, elderly female, OOB to chair, in NAD Eyes: No Scleral Icterus Ears/Nose/Mouth/Throat: Clear Oropharnyx, Mucous Membranes Moist Neck: NL Appearance and Movements; NL JVP Respiratory: Symmetrical Chest Expansion and Respiratory Effort, - - diminished but fair aeration throughout Cardiovascular: NL Sounds; No Murmurs; No JVD, RRR Abdominal: NL Sounds; No Tenderness; No Distention Extremities: - - trace pretibial edema to LLE Neurological: Alert and Oriented x 3, NL Muscle Strength and Tone Lines/Tubes/Other Access: Clean, Dry and Intact Peripheral IV Nutrition: Taking PO's Result Diagrams: 10/28/16 04:32 10/30/16 05:03 Microbiology and Other Data: Microbiology 10/27/16 12:31 Aerobic Blood Culture - Preliminary Blood Venous No Growth Day 1 Anaerobic Blood Culture - Preliminary No Growth Day 1 10/27/16 12:31 Aerobic Blood Culture - Preliminary Blood Venous No Growth Day 1 Anaerobic Blood Culture - Preliminary No Growth Day 1 Assess/Plan/Problems-Billing Assessment: Ms. Contreras is an 86 yo female with a PMH of COPD on home O2, CKD stage 3, chronic pain, HTN, HLD, restless leg sx, and squamous cell skin ca who presented to the ED on 10/27 with malaise that is secondary to COPD exacerbation. - Patient Problems (1) COPD (chronic obstructive pulmonary disease) Code(s): J44.9 - CHRONIC OBSTRUCTIVE PULMONARY DISEASE, UNSPECIFIED Comment: With exacerbation Patient back to baseline O2 of 3Lnc Continue prednisone, inhalers, nebulizers, azithromycin (2) Chronic respiratory failure Code(s): J96.10 - CHRONIC RESPIRATORY FAILURE, UNSP W HYPOXIA OR HYPERCAPNIA Comment: Secondary to COPD 3L chronic use at baseline (3) UTI (urinary tract infection) Comment: Urine cx with S. aureus and E. coli growth Macrobid with sensitivity to both organisms Continue for 7 day course. (4) Wounds, multiple Code(s): T07 - UNSPECIFIED MULTIPLE INJURIES Comment: To buttocks Secondary to skin cancer, per pt's daughter Continue home silver sulfazadine (pt has been using at home in spite of sulfa allergy) and triamcinolone cream Wound care consult Continue outpt follow up with Dr. Roberts (5) Elevated troponin Code(s): R79.89 - OTHER SPECIFIED ABNORMAL FINDINGS OF BLOOD CHEMISTRY Comment : Patient currently denying CP Troponin within patient's previous baseline Elevation likely secondary to demand ischemia and CKD Troponin appears to have been elevated since 2016. (6) Deep vein thrombosis (DVT) of left lower extremity Code(s): I82.402 - ACUTE EMBOLISM AND THOMBOS UNSP DEEP VEINS OF L LOW EXTREM Comment: Patient is asymptomatic. Doppler shows non-occlusive, distal, left lower extremity deep venous thrombosis of posterior tibial and peroneal veins. VQ scan does not show evidence of PE; unable to obtain CTA due to renal function. Patient has opted not to anticoagulate at this time since she is asymptomatic and proximal veins not involved but was advised to have follow-up US to monitor size of clot. Patient declining warfarin at this time. (7) Hyperkalemia Code(s): E87.5 - HYPERKALEMIA Comment: Resolved May be secondary to supplemental K+ replacement (8) Leukocytosis Code(s): D72.829 - ELEVATED WHITE BLOOD CELL COUNT, UNSPECIFIED Comment: Resolved Suspect secondary to COPD exacerbation (9) CKD (chronic kidney disease) Code(s): N18.9 - CHRONIC KIDNEY DISEASE, UNSPECIFIED Comment: Improved Acute on chronic kidney injury (10) Chronic pain Code(s): G89.29 - OTHER CHRONIC PAIN Comment: Continue her home dose Fentanyl patch, gabapentin. (11) HTN (hypertension) Code(s): I10 - ESSENTIAL (PRIMARY) HYPERTENSION Comment: Normotensive Resume home lisinopril (12) Restless legs syndrome (RLS) Comment: Continue gabapentin. (13) DVT prophylaxis Comment: SQ heparin Status and Disposition: Inpatient admission. Dc to home.
[2016-10-30] MEDS ORDERED: Nitrofurantoin Macrocrystals* 50 MG CAP PO SCH (11:00)
[2016-10-30] MEDS ORDERED: Lisinopril TAB* 10 MG PO SCH (13:00)
--- NOTE | 2016-10-31 05:48 | DS ---
CC: Dr. Dorene Abernathy * MEDICINE DISCHARGE SUMMARY: DATE OF ADMISSION: 10/28/16 DATE OF DISCHARGE: 10/30/16 PRIMARY CARE PROVIDER: Dr. Dorene Abernathy PROVIDER: Francisco Verde NP ATTENDING PHYSICIAN: Dr. Alfred Trivedi * (as dictated by Francisco Verde NP) . PRIMARY DISCHARGE DIAGNOSES: 1. Chronic obstructive pulmonary disease exacerbation. 2. Urinary tract infection. 3. Acute on chronic kidney injury. 4. Deep vein thrombosis of distal veins, posterior tibial and peroneal vein involvement. 5. Acute on chronic respiratory failure, the patient is chronically on 3 L nasal cannula. SECONDARY DISCHARGE DIAGNOSES: 1. Chronic kidney disease stage 3. 2. Chronic pain. 3. Hypertension. 4. Hyperlipidemia. 5. Restless leg syndrome. 6. Squamous cell skin carcinoma. 7. Diastolic heart failure with preserved ejection fraction. MEDICATIONS: Home medications at discharge: 1. Pulmicort 2 puffs inhaled b.i.d. 2. Alprazolam 1 tab b.i.d. p.r.n. 3. Silver sulfadiazine 1 application topical b.i.d. 4. Ferrous sulfate 325 mg daily. 5. Calcium carbonate and cholecalciferol 1 tab b.i.d. 6. Budesonide b.i.d. 7. Aspirin 81 mg daily. 8. Combivent 1 puff inhaled 4 times a day. p.r.n. 9. Albuterol nebulizer 1 puff inhaled 4 times a day p.r.n. 10. Atrovent nebulizer 1 treatment inhaled 4 times a day p.r.n. 11. [place] 5/325 half to one tab q.6 hours p.r.n. 12. Fentanyl 12 mcg patch, change q.72 hours. 13. Triamcinolone cream 1 application topical b.i.d. p.r.n. 14. Nystatin ointment 1 application topical t.i.d. p.r.n. 15. Ensure 1 can daily. 16. Methyl B12 1000 mcg daily. 17. Lisinopril 20 mg daily. New medications at discharge: 1. Furosemide 40 mg every other day. This is a change in dosing from daily. 2. Prednisone 40 mg daily x2 additional days. 3. Guaifenesin 1200 mg b.i.d. x5 additional days. 4. Macrobid 100 mg b.i.d. x7 days. 5. Gabapentin 100 mg 3 times a day with an additional 100 mg at bedtime. This is a change in dosing. 6. Azithromycin 250 mg daily x1 additional dose on 10/30/16, then discontinue. HOSPITAL COURSE OF STAY: For full details, please refer to the H and P provided by Juanita Malcolm NP. In summary, Ms. Contreras presented to the ER with concern of shaking and generalized malaise. In the ER, the patient had labs significant for a potassium of 5.5, her BNP was 343, her troponin was 0.06, and her white blood cell count was 14.8. She had also complained intermittently of chest discomfort. The patient did have evaluation that included a chest x-ray, which showed no radiographic evidence for acute cardiopulmonary abnormality. She also had a venous Doppler study of the left lower extremity as there was some noted swelling at the time. The Doppler study showed probable nonocclusive thrombus of the left lower extremity, posterior tibial, and peroneal calf veins, small size limit. The patient was admitted with concern for COPD exacerbation. She was requiring more oxygen than her baseline of 3 L and required 5 L upon admission to maintain her sats in the low 90s. She was started on prednisone. Of note, the patient's initial med rec stated that she was on prednisone chronically at home ; however, the patient's daughter clarified this is an old medication and that she is not currently taking chronic steroids. She is also started on azithromycin and continued on her inhalers and [id number] nebulizer treatments. The patient did improve with each day and was able to get down to her baseline oxygen requirements of 3 L nasal cannula and maintain her O2 sats prior to discharge. In regards to the chest pain, the patient had a repeat trop of 0.06 and 0.05, which is her baseline per previous labs. It is expected this is probably elevated secondary to her chronic kidney disease. The patient had no further complaints of chest pain and her EKG showed no acute sense of ischemia. In regards to the patient's left lower extremity deep vein thrombosis, due to the distal veins that are involved, I discussed with the patient and her daughter the possibility of anticoagulation. As these are distal veins and the patient is asymptomatic, we discussed that she can have repeat scan to evaluate the clot in about a week's time. We did do a V/Q scan as CTA was not available given the patient's renal function. V/Q scan did not show evidence of a PE. We initially did decide to start patient on Eliquis as that would provide her with prevention for future PE and decrease her stroke risk; however, given the patient's renal function, weight, and age, pharmacy noted that the patient is contraindicated for Eliquis and Xarelto and only a candidate for warfarin at this time. The patient expressed that she did not wish to start warfarin given the need for frequent blood tests and monitoring. The patient was advised to follow up with her PCP and to have a followup ultrasound of the extremity. A script for a follow-up ultrasound was sent to [facility], and the patient was notified via message to call to schedule her follow-up ultrasound. Of note, the patient upon admission was also noted to be very sedated with pinpoint pupils. The patient's home medications of gabapentin, fentanyl, and Xanax were initially discontinued, and the patient's fentanyl patch was removed. She was still lethargic and received naloxone with good effect. The following day, the patient's daughter came in and replaced the patient's fentanyl patch without notifying nursing. We did address that this is not appropriate for a hospitalized patient and explained there was concern for oversedation. The patient was previously on gabapentin 300 mg at breakfast, lunch, and dinner with an additional 600 mg at bedtime. I did renally adjust this with the help of a pharmacist to 100 mg t.i.d. with an additional 100 mg at bedtime to equal 200 mg at bedtime, so the patient was receiving 100 mg in the morning and the afternoon, and 200 at bedtime. The patient reported that her pain was well controlled here in the hospital for the past 2 days. Previously, I suspect that the patient's gabapentin doses were too much, given her renal function. Also, in discussion with her daughter, it appears that the daughter may have been giving her extra doses to treat complaints of leg shaking and pain, secondary to misunderstanding directions for appropriate dosing of gabapentin. I did explain that it may be beneficial to continue the lower dosing at time of discharge and then discuss titrating the dose back up if necessary with her PCP. Both the patient and daughter are in agreement with this plan. Other concern is the patient's renal function. The patient does report that she has poor p.o. intake, especially with fluids at home. The daughter also endorses this. The patient came in with a creatinine of 2.65, which is above her baseline. Her potassium was also up. We held both her supplemental potassium and her Lasix during her time here. She states that at home she weighed about 106 pounds and here in the hospital she was 109 pounds; however, the patient is comfortable. There is no significant signs of distress and she feels that this weight gain may be secondary to eating more here than she did at home. In any case, the patient still shows signs of being a little dry given her size and poor p.o. intake. I expressed concern for potential dehydration at home. We discussed making her Lasix dosing every other day and monitoring her weights and lower extremity edema. I have also encouraged increasing her p.o. fluid intake to prevent dehydration. Her potassium is also up, which may be secondary to her acute kidney injury; I have also advised that they reduce the potassium to every other day along with the Lasix in order to prevent hyperkalemia again. The patient was advised to keep a log of daily weights in order to help Dr. Abernathy to check the effectiveness of the Lasix dosing at the every other day dosing. On day of discharge, the patient was again back to her baseline oxygen requirements. She reports feeling well. She is eager to go home. She is in agreement with the plan to change medications and to follow up with her PCP regarding her blood clot and infection. The patient was instructed to follow up with Dr. Roberts for further wound care and may perhaps benefit from a referal to the [facility]. No changes made at this time to the patient' s current wound care regimen. The patient also has a positive urine culture resulting which shows Staph aureus and E. coli, which show sensitivity of both bacteria to Macrobid. The patient has been continued on Macrobid for 7 days. Given her renal function, this is the best option and again it will only be for a 1 week and then she will discontinue this medication. CONDITION AT DISCHARGE: Ms. Contreras is discharged to home on 10/30/16. She should follow up with her PCP for outpatient followup needs. The patient should have the urine culture rechecked following her antibiotic course. The patient also may benefit from a followup with Dr. Roberts and perhaps a referral to the Wound Clinic for the skin cancer to her buttocks. The patient also needs a followup ultrasound to evaluate the DVT and distal portion of her left lower extremity. The patient should also have record of daily weights for further evaluation and reevaluation of her PE now on the reduced dose of gabapentin. DIET: Low sodium diet. ACTIVITY: As tolerated. CONDITION: Stable. DISPOSITION: To home. TIME SPENT: Time spent on this discharge was approximately 45 minutes. Again, this is only a brief summary of the patient's hospital course of stay. For full details, please refer to the full medical record. If you have any further questions or need further assistance, please feel free to contact me at . FRANCISCO VERDE NP [id number]/CPS #: [id number] VERENA
== END 2016-10-30 14:30 | disposition home or self-care (01) | DRG 190 ==
LOC: ED 10:55 → MEDTELE 12:06 → OBSVTOIN 10-28 09:00 → MED 10-29 19:19
PROVIDERS: ADMIT Internal Medicine; ATTEND Internal Medicine
DX: J44.1 Chronic obstructive pulmonary disease with (acute) exacerbation (principal); J96.20 Acute and chronic respiratory failure, unspecified whether with hypoxia or hypercapnia; N17.9 Acute kidney failure, unspecified; I95.9 Hypotension, unspecified; I13.0 Hypertensive heart and chronic kidney disease with heart failure and stage 1 through stage 4 chronic kidney disease, or unspecified chronic kidney disease; I82.442 Acute embolism and thrombosis of left tibial vein; I50.32 Chronic diastolic (congestive) heart failure; E87.5 Hyperkalemia; N39.0 Urinary tract infection, site not specified; I82.492 Acute embolism and thrombosis of other specified deep vein of left lower extremity; Z99.81 Dependence on supplemental oxygen; M41.9 Scoliosis, unspecified; F17.200 Nicotine dependence, unspecified, uncomplicated; Z88.2 Allergy status to sulfonamides; Z88.5 Allergy status to narcotic agent; J42 Unspecified chronic bronchitis; K21.9 Gastro-esophageal reflux disease without esophagitis; M19.90 Unspecified osteoarthritis, unspecified site; M81.0 Age-related osteoporosis without current pathological fracture; Z90.710 Acquired absence of both cervix and uterus; N18.3 Chronic kidney disease, stage 3 (moderate); G89.29 Other chronic pain; E78.5 Hyperlipidemia, unspecified; G25.81 Restless legs syndrome; D72.829 Elevated white blood cell count, unspecified; B95.61 Methicillin susceptible Staphylococcus aureus infection as the cause of diseases classified elsewhere; B96.20 Unspecified Escherichia coli [E. coli] as the cause of diseases classified elsewhere; Z79.82 Long term (current) use of aspirin
CPT/HCPCS: 36415; 70450; 71010; 78582; 80048; 80053; 81003; 81015; 83605; 83880; 84484; 85025; 87040; 87077; 87086; 87186; 93005; 94640; 94760; A9270-GY; A9540; A9558; G0378; G8978-GP-CJ; G8979-GP-CI; J1644; J2310; J2930; J7512; J7644

== ENCOUNTER 2016-12-23 18:05 | Emergency (ER) | payer MEDICARE ==
[2016-12-23 18:37] VITALS: BP 117/51
== END 2016-12-23 19:28 | disposition left against medical advice (07) ==
LOC: ED 18:05
DX: R06.02 Shortness of breath (principal); Z53.21 Procedure and treatment not carried out due to patient leaving prior to being seen by health care provider

== ENCOUNTER 2017-05-25 14:47 | Inpatient (IN) | payer MEDICARE ==
[2017-05-25] MEDS ORDERED: Albuterol 2.5 MG/3 ML NEB.SOL* (0.083%) ONE (15:16)
[2017-05-25] MEDS ORDERED: Albuterol/Ipratropium NEB.SOL* Albuterol 2.5 MG/Ipratropium 0.5 MG 3 ML ONE (15:16)
[2017-05-25 15:21] LABS: ABS Basophils 0 10^3/ul (0-0.2); ABS Eosinophils 0.4 10^3/ul (0-0.6); ABS Lymphocytes 0.8 10^3/ul (1.0-4.8); ABS Neutrophils 7.7 10^3/ul (1.5-7.7); ABS Nucleated RBC 0 10^3/ul; Eosinophil % 4.1 % (0-6); Hematocrit 31 % (35-47); Hemoglobin 10.4 g/dl (12.0-16.0); Mean Corpuscular HGB Conc 33 g/dl (31-36); Mean Corpuscular Hemoglobin 32 pg (27-31); Mean Corpuscular Volume 95 fL (80-97); Mean Platelet Volume 8 um3 (7.4-10.4); Nucleated Red Blood Cells % 0; Platelet Count 284 10^3/ul (150-450); Red Cell Distribution Width 14 % (10.5-15)
[2017-05-25] MEDS ORDERED: methylPREDNISolone 125 MG* 2 ML VIAL IV ONE (15:23)
[2017-05-25] MEDS ORDERED: Albuterol 2.5 MG/3 ML NEB.SOL* (0.083%) INH ONE (15:52)
[2017-05-25] MEDS ORDERED: Albuterol/Ipratropium NEB.SOL* Albuterol 2.5 MG/Ipratropium 0.5 MG 3 ML INH ONE ×2 (15:52→15:58)
[2017-05-25] MEDS: Albuterol 2.5 MG/3 ML NEB.SOL* (0.083%) INH ONE (16:00)
--- NOTE | 2017-05-25 16:05 | RAD ---
INDICATION: Shortness of breath. COMPARISON: Comparison is made with a prior study from January 17, 2017. TECHNIQUE: A portable view of the chest was obtained. FINDINGS: The heart is moderately enlarged and unchanged from the prior study. There is a new infiltrate present at the right lung base. No pleural effusion is seen. IMPRESSION: NEW RIGHT BASILAR INFILTRATE.
[2017-05-25 16:08] LABS: EGFR Non-African American 35.7 (>60)
[2017-05-25] MEDS ORDERED: cefTRIAXone(*) 1 GM in NS 0.9% 50 ML* 50 ML IVPB ONE (16:44)
[2017-05-25] MEDS ORDERED: Azithromycin IV(*) 500 MG in NS 0.9% 250 ML* 250 ML IVPB ONE (16:44)
[2017-05-25] MEDS ORDERED: Triamcinolone 0.025% OINT * 15 GM TUBE TOPICAL PRN (18:08)
[2017-05-25] MEDS ORDERED: Piperacillin/Tazobac ADVAN(*) 3.375 GM in NS 0.9% 100 ML* 100 ML IVPB ONE (18:17)
[2017-05-25] MEDS ORDERED: NS 0.9% 1000 ML* 1,000 ML IV ONE (18:23)
[2017-05-25] MEDS ORDERED: Acetaminophen TAB* 325 MG PO ONE (18:24)
[2017-05-25] MEDS ORDERED: NS 0.9% 500 ML* 500 ML IV ONE (18:24)
[2017-05-25] MEDS ORDERED: Piperacillin/Tazobac ADVAN(*) 3.375 GM in NS 0.9% 50 ML* 50 ML IVPB ONE (18:45)
[2017-05-25] MEDS ORDERED: Vancomycin per Pharmacy* NOTE FOLLOW UP PRN (18:52)
[2017-05-25] MEDS ORDERED: Zosyn per Pharmacy* NOTE FOLLOW UP SCH (19:00)
[2017-05-25] MEDS ORDERED: Vancomycin(*) 1,000 MG - ED ONCE IVPB ONE ×2 (19:00)
--- NOTE | 2017-05-25 19:30 | PN ---
Hospitalist Progress Note Date of Service: 05/25/17 UPDATE: Per RN in ER, patient temperature = 103.0 F and patient feels hot with rigors. Tylenol 975mg given by RN. Added vancomycin to zosyn. Increased RR of 24-26 and SBP<100 = qSOFA score of 2 placing patient at high risk for sepsis mortality. Additional liter of IVNS given prior to transfer to floor.
[2017-05-25] MEDS: Albuterol/Ipratropium NEB.SOL* Albuterol 2.5 MG/Ipratropium 0.5 MG 3 ML INH SCH (19:38)
[2017-05-25] MEDS: Gabapentin CAP(*) 100 MG PO SCH ×2 (20:50→20:52)
[2017-05-25] MEDS: guaiFENesin ER TAB 600 MG PO SCH (20:51)
[2017-05-25] MEDS: ALPRAZolam TAB* 0.25 MG PO PRN (20:51)
[2017-05-25] MEDS: fentaNYL PATCH 12 MCG/HR TRANSDERM SCH (20:55)
--- NOTE | 2017-05-25 23:14 | HP ---
CC: Dr. Abernathy * ADMISSION HISTORY AND PHYSICAL: DATE OF ADMISSION: 05/25/17 PRIMARY CARE PHYSICIAN: Dr. Dorene Abernathy. ATTENDING PHYSICIAN FOR TODAY: Diana Saavedra DO * (DICTATED BY FRANCISCO MOODY NP) CHIEF COMPLAINT: Shortness of breath and fatigue. HISTORY OF PRESENT ILLNESS: This is a pleasant 86-year-old female, who had multiple hospitalizations at the end of the year last year in July, October, and January for varying lung condition, exacerbation of COPD, pneumonitis, and chronic hypoxic respiratory failure. The patient presents again today after going to her visit with the pain management clinic this morning stating that she has had some increased cough. No fevers or chills. However, her oxygen saturation has been dropping. She does wear 2 L of oxygen around the clock. She has had to increase it to 3 just to feel comfortable. She states she has got a significant cough where she sometimes is bringing up sputum, but she is not really able to mobilize her secretions. Overall, she is just feeling very, very poorly and came to downstairs to the emergency department to be evaluated. PAST MEDICAL HISTORY: Significant for COPD; chronic hypoxic respiratory failure , on 2 to 3 L nasal cannula at home; chronic kidney disease, stage 3; chronic pain, sees Pain Management; hypertension; hyperlipidemia; restless leg syndrome ; remote history of squamous cell carcinoma of the skin; chronic diastolic heart failure. PAST SURGICAL HISTORY: Significant for hysterectomy, hernia repair, and appendectomy as a child. HOME MEDICATIONS: Include: 1. Triamcinolone 0.1% 2 times a day as needed. 2. Nystatin ointment 3 times a day as needed. 3. Lisinopril 20 mg daily. 4. Gabapentin 100 mg in the morning, 300 mg at night. 5. Albuterol 2.5 mg/mL 4 times a day. 6. Ipratropium 0.5 mg 4 times a day. 7. Lasix 20 mg daily. 8. Xanax 0.25 mg 2 times a day as needed. 9. Fentanyl patch 12 mcg per hour q.72 hours. 10. [place] 10/325 mg half tablet q.6 hours as needed for breakthrough pain. ALLERGIES: The patient has allergies to CODEINE and SULFA. FAMILY HISTORY: Noncontributory. SOCIAL HISTORY: The patient is a former smoker. Denies any alcohol use. Denies any illicit drug use, never in the past. Her daughter, Lizeth Godinez, is her surrogate decision maker and medical healthcare proxy. REVIEW OF SYSTEMS: The patient notes no subjective fevers at home. No headache. Increased shortness of breath, increased work of breathing. No chest pain. No nausea or vomiting. No abdominal pain. No urinary complaints. She has her baseline musculoskeletal pain which is approximately 5/10, which is at her normal baseline, chronic arthralgias and myalgias, and no further constitutional complaints. PHYSICAL EXAMINATION GENERAL: The patient is awake and alert, ill appearing. VITAL SIGNS: Currently, blood pressure 92/45, heart rate 109 to 111, respiratory rate 24, oxygen saturation 92% on 4 L nasal cannula, temperature 98.2. HEENT: The patient is atraumatic, normocephalic. PERRLA with nonicteric sclerae. Oral mucosa is dry. Extraocular movements were intact. NECK: Supple, nontender. No JVD noted. No carotid bruits auscultated. No thyromegaly noted. LUNGS: Significantly diminished throughout the lung [place]. I do not hear an appreciable wheeze at this time. She definitely has a consolidation on the right lower lobe where it appears that she is not moving good air. CARDIOVASCULAR: S1, S2 present. Rate is tachycardic. Rhythm is slightly irregular, looks like she has some PACs on the monitor. No gallops or rubs noted. ABDOMEN: Soft, nontender, nondistended. Positive bowel sounds in all 4 quadrants. No organomegaly noted. : Deferred. MUSCULOSKELETAL: There is no clubbing and no cyanosis. No edema. She has significantly kyphotic spine. +2 distal pulses palpable. NEUROLOGIC: She is grossly intact with no focal deficits. She is alert and oriented x3. PSYCHIATRIC: She is cooperative and appropriate. LABORATORY DATA: WBC 10.0, RBC 3.30, hemoglobin 10.4, hematocrit 31, platelets 284. Sodium 138, potassium 5.0, chloride 100, CO2 30, BUN 40, creatinine 1.40. GFR is 35.7. Glucose 87, lactic acid 0.7. Calcium 9.7, bilirubin 0.4, AST 17, ALT 10, alkaline phosphatase 80, troponin mildly elevated at 0.05. BNP 492, total protein 7.4, albumin 3.8, globulin 3.6. IMAGING: Chest x-ray for today as read by the radiologist shows a new right basilar infiltrate, no pleural effusion, with moderately enlarged heart, which is unchanged from her prior study. IMPRESSION: This is a very frail-appearing 86-year-old female patient with longstanding history of chronic lung disease and some diastolic heart failure, being admitted for a new right lower lobe community-acquired pneumonia and not likely exacerbation of her chronic obstructive pulmonary disease. PLAN: She has been admitted to medical service. She has already received azithromycin and ceftriaxone in the emergency department. She received some gentle fluid hydration. She was appearing intravascularly dry. Incidentally, her troponins are chronically elevated likely secondary to her chronic kidney disease. Her last 3 admissions her troponins have consistently been at 0.05. The patient is not complaining of chest pain. I do not feel I need to trend the troponins any further. Her BNP is also always elevated anywhere from 300 to 500, this has been consistent in the last 6 months as well. She does not appear acutely fluid overloaded either at this time. DIAGNOSES: 1. Right lower lobe infiltrate, received ceftriaxone and azithromycin in the ER. I will put her on Zosyn empirically, start first dose now and then per pharmacy protocol and see how she responds. She is currently afebrile. We will continue to trend her white blood cell count and her response to antibiotic treatment. Also start her on DuoNebs q.6 hours with albuterol q.4 hours as needed. Placed her on a flutter valve, Mucinex 600 two times a day. She has already received 1 dose of steroid at 125 mg of Solu-Medrol in the ER. I do not think this is really an exacerbation at this point, so I do not think that we need to keep her on steroids right now. If this changes, this is something that we can always add back in; however, the patient is not wheezing and does not have a significant amount of sputum production at this time. For her tachycardia, the patient has already been given a small fluid bolus. We will continue to give her gentle fluid hydration given her history of heart failure. Continue to monitor her heart rate. Her blood pressure is on the lower side, this will be monitored. We will hold her lisinopril in the meantime. 2. Chronic obstructive pulmonary disease. Continue duonebs as needed. 3. For her chronic kidney disease, she is currently at her baseline. We can follow her labs on a daily basis. 4. For her tachycardia, she has received fluids. This will be maintained and she will stay on telemetry. She currently does not have any leukocytosis or fever. We will continue to monitor her labs and trend her temperatures. 5. For her restless leg syndrome, she will be continued on her gabapentin. 6. For her hypertension, again she is hypotensive, so her lisinopril is being held. 7. For her history of diastolic heart failure, her last ejection fraction was 65% and she seems to be at her baseline with her BNP. 8. For her chronic pain, she is already wearing her fentanyl patch. She can have [place] for breakthrough and Xanax 2 times a day as needed. 9. DVT prophylaxis. She is not on any kind of anticoagulation at home. She will get heparin 5000 q.8 hours and she is a full code. Surrogate decision maker is her daughter, Lizeth, as stated earlier. Rest of the patient's course will be determined by further diagnostics, laboratories, and any other input from other providers as warranted during this admission. TIME SPENT: I spent approximately 60 minutes on her admission discussing the plan of care with her and the ER staff and implementing this plan of care. This case has been discussed with Dr. Diana Saavedra, the attending on this case , who is in agreement with the plan. FRANCISCO MOODY, SAMIRA [id number]/CPS #: [id number] UPDATE: Just prior to being transported up to the floor, patient's temperature went up to 103.0 with persistent hypotension and tachycardia. Will give additional fluids, had 975mg tylenol, now meeting SIRS criteria. Please see follow up note. MTDD
[2017-05-26] MEDS: Heparin VIAL(*) 5000 UNITS/ML VIAL (FIVE THOUSAND) SUBCUT SCH ×4 (00:20→22:08)
[2017-05-26] MEDS: Piperacillin/Tazobactam 13.5 GM IV 24 hour continuous infusion IVPB SCH ×2 (00:21)
[2017-05-26] MEDS: Albuterol/Ipratropium NEB.SOL* Albuterol 2.5 MG/Ipratropium 0.5 MG 3 ML INH SCH ×4 (01:50→19:34)
[2017-05-26] MEDS: Albuterol 2.5 MG/3 ML NEB.SOL* (0.083%) INH PRN (03:43)
[2017-05-26 03:57] LABS: Urine Appearance Cloudy; Urine Blood Negative (Negative); Urine Color Yellow; Urine Ketones Negative (Negative); Urine Protein 1+(30 mg/dL) (Negative); Urine Specific Gravity 1.014 (1.010-1.030); Urine Urobilinogen Negative (Negative)
[2017-05-26] MEDS: fentaNYL PATCH 12 MCG/HR TRANSDERM SCH (07:15)
[2017-05-26] MEDS: guaiFENesin ER TAB 600 MG PO SCH ×2 (08:39→22:02)
[2017-05-26] MEDS: Furosemide TAB* 20 MG PO SCH (08:40)
[2017-05-26] MEDS: Gabapentin CAP(*) 100 MG PO SCH ×3 (08:40→22:02)
[2017-05-26] MEDS ORDERED: Lisinopril TAB* 10 MG PO SCH (09:00)
[2017-05-26] MEDS: ALPRAZolam TAB* 0.25 MG PO PRN ×2 (09:09→22:02)
--- NOTE | 2017-05-26 13:45 | PN ---
Subjective Date of Service: 05/26/17 Interval History: Continue to c/o shortness of breath no change from yesterday. Patient denies chest pain or abd pain. Denies n/v/d. Family History: Unchanged from Admission Social History: Unchanged from Admission Past Medical History: Unchanged from Admission Objective Active Medications: Acetaminophen (Tylenol Tab*) 650 mg PO Q6H PRN PRN Reason: FEVER Hydrocodone Bitart/Acetaminophen ([place] 5-325 Tab*) 1 tab PO Q6H PRN PRN Reason: PAIN Albuterol (Ventolin 2.5 Mg/3 Ml Neb.Shahrzad*) 2.5 mg INH Q4H PRN PRN Reason: SOB/WHEEZING Last Admin: 05/26/17 03:43 Dose: 2.5 mg Albuterol/Ipratropium (Duoneb (Albuterol 2.5 Mg/Ipratropium 0.5 Mg)) 1 neb INH Q6H [facility] Last Admin: 05/26/17 13:35 Dose: 1 neb Alprazolam (Xanax Tab*) 0.25 mg PO BID PRN PRN Reason: ANXIETY Last Admin: 05/26/17 09:09 Dose: 0.25 mg Fentanyl (Duragesic Patch 12 Mcg/Hr *) 12 mcg TRANSDERM Q72H [facility] Last Admin: 05/26/17 07:15 Dose: 12 mcg Furosemide (Lasix Tab*) 20 mg PO DAILY [facility] Last Admin: 05/26/17 08:40 Dose: 20 mg Gabapentin (Neurontin Cap(*)) 100 mg PO BID [facility] Last Admin: 05/26/17 08:40 Dose: 100 mg Gabapentin (Neurontin Cap(*)) 200 mg PO BEDTIME [facility] Last Admin: 05/25/17 20:52 Dose: 200 mg Guaifenesin (Mucinex*) 600 mg PO BID [facility] Last Admin: 05/26/17 08:39 Dose: 600 mg Heparin Sodium (Porcine) (Heparin Vial(*)) 5,000 units SUBCUT Q8HR [facility] Last Admin: 05/26/17 05:17 Dose: 5,000 units Piperacillin Sod/Tazobactam (Sod 13.5 gm/ Sodium Chloride) 500 mls @ 20.833 mls /hr IVPB Q24H [facility] Last Admin: 05/26/17 00:21 Dose: 20.833 mls/hr Vancomycin HCl 750 mg/ Sodium (Chloride) 250 mls @ 166.667 mls/hr IVPB Q24H [facility] Nystatin (Nystatin Oint*) 1 applic TOPICAL TID PRN PRN Reason: RASH Pharmacy Consult (Zosyn Per Pharmacy*) 1 note FOLLOW UP .ZOSYN PER PHARMACY [facility] Pharmacy Consult (Vancomycin Per Pharmacy*) 1 note FOLLOW UP . PRN PRN Reason: PER PROTOCOL Pharmacy Profile Note (Vancomycin Trough Check) 1 note FOLLOW UP 1999 ONE Stop: 05/27/17 20:01 Triamcinolone Acetonide (Triamcinolone 0.025% Oint *) 1 applic TOPICAL BID PRN PRN Reason: RASH Vital Signs - 8 hr 05/26/17 05/26/17 05/26/17 07:15 07:34 07:50 Temperature 98.9 F Pulse Rate 97 Respiratory 18 16 28 Rate Blood Pressure 151/68 (mmHg) O2 Sat by Pulse 100 Oximetry 05/26/17 05/26/17 05/26/17 08:40 08:48 09:09 Temperature Pulse Rate 98 Respiratory 24 26 24 Rate Blood Pressure (mmHg) O2 Sat by Pulse 99 Oximetry 05/26/17 05/26/17 11:09 13:36 Temperature Pulse Rate 90 Respiratory 20 18 Rate Blood Pressure (mmHg) O2 Sat by Pulse 99 Oximetry Oxygen Devices in Use Now: Nasal Cannula Appearance: appears mildly shortness of breath sitting in the chair. Eyes: No Scleral Icterus Ears/Nose/Mouth/Throat: Clear Oropharnyx, Mucous Membranes Moist Neck: NL Appearance and Movements; NL JVP, Trachea Midline Respiratory: Symmetrical Chest Expansion and Respiratory Effort, - - exp. wheezing bilat and few scattered rhonchi Cardiovascular: NL Sounds; No Murmurs; No JVD Abdominal: NL Sounds; No Tenderness; No Distention Extremities: No Edema, No Clubbing, Cyanosis Skin: - - bilat lower Neurological: Alert and Oriented x 3 - bilat lower legs with swelling, dry scaley skin and scattered scabbed areas Nutrition: Taking PO's Result Diagrams: 05/25/17 15:11 05/25/17 15:11 Microbiology and Other Data: Microbiology 05/25/17 21:00 Gram Stain - Final Sputum Expectorated Assess/Plan/Problems-Billing Assessment: Ms. Saldaña is an 86 y.o female with a history of presented to the Emergency room with increased shortness of breath. Found to have Pneumonia. - Patient Problems (1) RLL pneumonia Current Visit: No Status: Acute Priority: High Onset Date: 11/09/13 Code (s): J18.9 - PNEUMONIA, UNSPECIFIED ORGANISM SNOMED Code(s): 251755313 Comment: ~ CXR with New Right basilar infiltrate Will continue on Zosyn and vancomycin as per pharmacy (2) Sepsis Current Visit: No Status: Acute Comment: Secondary to pneumonia Meets sepsis criteria on admission with qsofa of 2.. Continue Zosyn Was given appropraite hydration in the ER. (3) Elevated troponin Current Visit: No Status: Acute Priority: Medium Code(s): R79.89 - OTHER SPECIFIED ABNORMAL FINDINGS OF BLOOD CHEMISTRY SNOMED Code(s): 537248462 Comment: Patient currently denying CP Troponin at baseline from previous visits Suspect that elevation likely secondary to demand ischemia and CKD (4) COPD (chronic obstructive pulmonary disease) Current Visit: No Status: Chronic Code(s): J44.9 - CHRONIC OBSTRUCTIVE PULMONARY DISEASE, UNSPECIFIED SNOMED Code(s): 90645965 Comment: ~Albuterol neds as needed for shortness of breath ~ excerabation d/t pneumonia (5) GERD (gastroesophageal reflux disease) Current Visit: No Status: Chronic Priority: High Onset Date: 11/09/13 Code(s): K21.9 - GASTRO-ESOPHAGEAL REFLUX DISEASE WITHOUT ESOPHAGITIS SNOMED Code(s): 031395982 Comment: Continue omeprazole. (6) HTN (hypertension) Current Visit: No Status: Chronic Priority: High Onset Date: 11/09/13 Code(s): I10 - ESSENTIAL (PRIMARY) HYPERTENSION SNOMED Code(s): 34499295 Comment: (7) DVT prophylaxis Current Visit: No Status: Acute Priority: Medium Code(s): MTV2519 - SNOMED Code(s): 057777946 Comment: Heparin SubQ (8) Full code status Current Visit: No Status: Acute Code(s): Z78.9 - OTHER SPECIFIED HEALTH STATUS SNOMED Code(s): 626575226 Status and Disposition: will discharge home when stable
[2017-05-26] MEDS: fentaNYL Patch Check Q Shift 1 NOTE SCH (18:40)
[2017-05-26] MEDS ORDERED: Vancomycin(*) 750 MG in NS 0.9% 250 ML* 250 ML IVPB SCH (20:00)
[2017-05-27] MEDS: Albuterol/Ipratropium NEB.SOL* Albuterol 2.5 MG/Ipratropium 0.5 MG 3 ML INH SCH ×4 (00:51→18:20)
[2017-05-27] MEDS: Piperacillin/Tazobactam 13.5 GM IV 24 hour continuous infusion IVPB SCH ×2 (03:07)
[2017-05-27] MEDS: ALPRAZolam TAB* 0.25 MG PO PRN ×2 (06:10→18:38)
[2017-05-27] MEDS: Heparin VIAL(*) 5000 UNITS/ML VIAL (FIVE THOUSAND) SUBCUT SCH ×3 (06:11→21:24)
--- NOTE | 2017-05-27 06:37 | PN ---
Progress Note - Progress Note Date of Service: 05/27/17 Note: Called for SOB, on exam patient with increase wob, rhonchorous, poor aeration and expiratory wheezing. She has a history of anxiety as well. Was just given xanax. Will have respiratory give neb tx, CXR ordered, may need vapotherm or bipap and transfer to ICU depending on she responds to treatment and xanax.
[2017-05-27] MEDS: fentaNYL Patch Check Q Shift 1 NOTE SCH (07:44)
--- NOTE | 2017-05-27 08:09 | RAD ---
Indication: Shortness of breath. RIGHT lower lobe pneumonia. Cardiac disease and COPD. Comparison: May 25, 2017 Technique: Upright AP 0648 hours Report: Cardiomegaly and prominent ill-defined central pulmonary vasculature with mild perihilar opacities. Diffuse prominence of interstitial markings without distinct thickened peripheral intralobular septa. Disproportionate alveolar consolidation at the RIGHT lung base. Probable trace pleural effusions. Negative for pneumothorax. IMPRESSION: The constellation of findings is most consistent with pulmonary vascular congestion and interstitial edema as well as RIGHT lower lobe pneumonia. Significant interval worsening.
[2017-05-27] MEDS: Lisinopril TAB* 10 MG PO SCH (08:20)
[2017-05-27] MEDS: Acetaminophen TAB* 325 MG PO PRN (08:20)
[2017-05-27] MEDS: Gabapentin CAP(*) 100 MG PO SCH ×3 (08:21→21:24)
[2017-05-27] MEDS: Furosemide TAB* 20 MG PO SCH (08:21)
[2017-05-27] MEDS: guaiFENesin ER TAB 600 MG PO SCH ×2 (08:21→21:25)
[2017-05-27] MEDS ORDERED: predniSONE TAB* 20 MG PO ONE (09:02)
[2017-05-27] MEDS ORDERED: Furosemide IV* 10 MG/ML VIAL (40 MG) IV SLOW PU ONE (09:04)
[2017-05-27] MEDS ORDERED: Cefepime(*) 1 GM in NS 0.9% 50 ML* 50 ML IVPB SCH (10:00)
[2017-05-27] MEDS ORDERED: Azithromycin IV(*) 500 MG in NS 0.9% 250 ML* 250 ML IVPB SCH (11:00)
[2017-05-27 11:21] LABS: ABS Basophils 0.1 10^3/ul (0-0.2); ABS Eosinophils 0.2 10^3/ul (0-0.6); ABS Lymphocytes 0.8 10^3/ul (1.0-4.8); ABS Monocytes 0.9 10^3/ul (0-0.8); ABS Neutrophils 10.1 10^3/ul (1.5-7.7); ABS Nucleated RBC 0 10^3/ul; Eosinophil % 1.7 % (0-6); Hematocrit 29 % (35-47); Hemoglobin 9.2 g/dl (12.0-16.0); Lymphocyte % 6.4 % (25-47); Mean Corpuscular HGB Conc 32 g/dl (31-36); Mean Corpuscular Hemoglobin 31 pg (27-31); Mean Corpuscular Volume 96 fL (80-97); Mean Platelet Volume 8.1 um3 (7.4-10.4); Nucleated Red Blood Cells % 0; Platelet Count 258 10^3/ul (150-450); Red Blood Count 3.01 10^6/ul (4.0-5.4); Red Cell Distribution Width 14 % (10.5-15); White Blood Count 12.1 10^3/ul (3.5-10.8)
[2017-05-27 11:33] LABS: EGFR Non-African American 28.3 (>60)
--- NOTE | 2017-05-27 17:25 | PN ---
Subjective Date of Service: 05/27/17 Interval History: Patient continue to c/o shortness of breath, little worse earlier this AM but states has improved some now. Denies chest pain or abd pain. Denies n/v/d Family History: Unchanged from Admission Social History: Unchanged from Admission Past Medical History: Unchanged from Admission Objective Active Medications: Acetaminophen (Tylenol Tab*) 650 mg PO Q6H PRN PRN Reason: FEVER Last Admin: 05/27/17 08:20 Dose: 650 mg Hydrocodone Bitart/Acetaminophen ([place] 5-325 Tab*) 1 tab PO Q6H PRN PRN Reason: PAIN Albuterol (Ventolin 2.5 Mg/3 Ml Neb.Shahrzad*) 2.5 mg INH Q4H PRN PRN Reason: SOB/WHEEZING Last Admin: 05/26/17 03:43 Dose: 2.5 mg Albuterol/Ipratropium (Duoneb (Albuterol 2.5 Mg/Ipratropium 0.5 Mg)) 1 neb INH Q6H [facility] Last Admin: 05/27/17 12:11 Dose: 1 neb Alprazolam (Xanax Tab*) 0.25 mg PO BID PRN PRN Reason: ANXIETY Last Admin: 05/27/17 06:10 Dose: 0.25 mg Fentanyl (Duragesic Patch 12 Mcg/Hr *) 12 mcg TRANSDERM Q72H [facility] Stop: 05/29/17 08:59 Last Admin: 05/26/17 07:15 Dose: 12 mcg Fentanyl (Duragesic Patch 12 Mcg/Hr *) 12 mcg TRANSDERM Q72HR [facility] Gabapentin (Neurontin Cap(*)) 100 mg PO BID [facility] Last Admin: 05/27/17 08:21 Dose: 100 mg Gabapentin (Neurontin Cap(*)) 200 mg PO BEDTIME [facility] Last Admin: 05/26/17 22:02 Dose: 200 mg Guaifenesin (Mucinex*) 600 mg PO BID [facility] Last Admin: 05/27/17 08:21 Dose: 600 mg Heparin Sodium (Porcine) (Heparin Vial(*)) 5,000 units SUBCUT Q8HR [facility] Last Admin: 05/27/17 14:04 Dose: 5,000 units Azithromycin 500 mg/ Sodium (Chloride) 250 mls @ 250 mls/hr IVPB Q24H [facility] Cefepime HCl 1 gm/ Sodium (Chloride) 50 mls @ 100 mls/hr IVPB Q24H [facility] Lisinopril (Prinivil Tab*) 20 mg PO DAILY [facility] Last Admin: 05/27/17 08:20 Dose: 20 mg Nystatin (Nystatin Oint*) 1 applic TOPICAL TID PRN PRN Reason: RASH Pharmacy Profile Note (Fentanyl Patch Check Q Shift) 1 note N/A 0700,1900 [facility] Last Admin: 05/27/17 07:44 Dose: 1 note Prednisone (Deltasone Tab*) 40 mg PO DAILY [facility] Triamcinolone Acetonide (Triamcinolone 0.025% Oint *) 1 applic TOPICAL BID PRN PRN Reason: RASH Vital Signs - 8 hr 05/27/17 05/27/17 05/27/17 11:32 12:13 15:37 Temperature 98.0 F 98.4 F Pulse Rate 81 91 97 Respiratory 24 16 28 Rate Blood Pressure 111/52 131/61 (mmHg) O2 Sat by Pulse 97 98 100 Oximetry Oxygen Devices in Use Now: Nasal Cannula Appearance: appears tachypneic, able to speak in short sentences Eyes: No Scleral Icterus Ears/Nose/Mouth/Throat: Clear Oropharnyx, Mucous Membranes Moist Neck: NL Appearance and Movements; NL JVP, Trachea Midline Respiratory: Symmetrical Chest Expansion and Respiratory Effort, - - bilat scattered wheezes, rhonchi and rales at the bases Cardiovascular: RRR, - - normal heart sounds Abdominal: NL Sounds; No Tenderness; No Distention Extremities: No Edema, No Clubbing, Cyanosis Skin: - - coccyx with redness and excoriated area noted, bilat lower leg with dry and scaling skin. Neurological: Alert and Oriented x 3 Result Diagrams: 05/27/17 09:32 05/27/17 09:32 Microbiology and Other Data: Microbiology 05/25/17 21:00 Gram Stain - Final Sputum Expectorated Assess/Plan/Problems-Billing Assessment: Ms. Saldaña is an 86 y.o female with a history of chf, htn, ckd stage 3, hyperlipidemia, hypoxic respiratory failure and copd presented to the Emergency room with increased shortness of breath. Found to have Pneumonia. - Patient Problems (1) RLL pneumonia Current Visit: No Status: Acute Priority: High Onset Date: 11/09/13 Code (s): J18.9 - PNEUMONIA, UNSPECIFIED ORGANISM SNOMED Code(s): 974913432 Comment: ~ repeat chest xray this AM showed ~findings is most consistent with pulmonary vascular congestion and interstitial edema as well as RIGHT lower lobe pneumonia. Significant interval worsening. ~ will change to azithromycin and cefepime ~ will add lasix 40 mg IVP x1 ~ continue albuterol nebs~ ~ will add prednisone 60 mg today and start 40 mg tomorrow (2) Sepsis Current Visit: No Status: Acute Comment: Secondary to pneumonia Meets sepsis criteria on admission with qsofa of 2.. Continue cefepime and azithromycin (3) Elevated troponin Current Visit: No Status: Acute Priority: Medium Code(s): R79.89 - OTHER SPECIFIED ABNORMAL FINDINGS OF BLOOD CHEMISTRY SNOMED Code(s): 656966454 Comment: Patient currently denying CP Troponin at baseline from previous visits Suspect that elevation likely secondary to demand ischemia and CKD (4) COPD (chronic obstructive pulmonary disease) Current Visit: No Status: Chronic Code(s): J44.9 - CHRONIC OBSTRUCTIVE PULMONARY DISEASE, UNSPECIFIED SNOMED Code(s): 23737380 Comment: ~Albuterol neds as needed for shortness of breath ~ excerabation d/t pneumonia ~ will add prednisone (5) GERD (gastroesophageal reflux disease) Current Visit: No Status: Chronic Priority: High Onset Date: 11/09/13 Code(s): K21.9 - GASTRO-ESOPHAGEAL REFLUX DISEASE WITHOUT ESOPHAGITIS SNOMED Code(s): 797282974 Comment: Continue omeprazole. (6) HTN (hypertension) Current Visit: No Status: Chronic Priority: High Onset Date: 11/09/13 Code(s): I10 - ESSENTIAL (PRIMARY) HYPERTENSION SNOMED Code(s): 42182845 Comment: (7) Hyperkalemia Current Visit: No Status: Acute Code(s): E87.5 - HYPERKALEMIA SNOMED Code( s): 38035923 Comment: Potassium 5.5 today ~ lasix 40 mg IV given kayexalate 15 gm po repeat BMP (8) DVT prophylaxis Current Visit: No Status: Acute Priority: Medium Code(s): WYM0137 - SNOMED Code(s): 062422593 Comment: Heparin SubQ (9) Full code status Current Visit: No Status: Acute Code(s): Z78.9 - OTHER SPECIFIED HEALTH STATUS SNOMED Code(s): 243219879 Status and Disposition: inpatient
--- NOTE | 2017-05-27 19:04 | PN ---
Hospitalist Progress Note Date of Service: 05/27/17 Called by Nursing staff reporting that Ms. Sanchezs oxygen came off while she was eating and that her o2 saturation had dropped in to the 80's. Nursing staff states that the o2 may have been off for approximately 15 minutes. Examined patient at the bedside. Patient is tachypneic, tachycardic speaking in 1 to 2 word sentences. Lungs with decreased breath sounds throughout bilat and scattered rhonchi. suspect d/t the patients poor respiratory reserve she would benefit from high flow 02. Will transfer to [facility] for close evaluation and high flow o2.
[2017-05-27] MEDS ORDERED: Sodium Polystyrene ORAL.SOL* 15 GM/60 ML BTL PO ONE (19:58)
[2017-05-27] MEDS ORDERED: Vancomycin Trough Check NOTE FOLLOW UP ONE (20:00)
[2017-05-28] MEDS: Albuterol/Ipratropium NEB.SOL* Albuterol 2.5 MG/Ipratropium 0.5 MG 3 ML INH SCH ×4 (00:53→19:51)
[2017-05-28] MEDS: ALPRAZolam TAB* 0.25 MG PO PRN ×3 (01:43→18:26)
[2017-05-28] MEDS ORDERED: ALPRAZolam TAB* 0.25 MG PO ONE (02:21)
--- NOTE | 2017-05-28 02:40 | PN ---
Progress Note - Progress Note Date of Service: 05/28/17 Note: Paged for WOB - still tachypneic, wheezing and poor aeration. Does not seem volume overloaded but will check CXR. Extra dose of xanax and albuterol tx did not help. Will start low dose morphine for air hunger. Confirmed she would like to be a full code. Recommend palliative care consult and readdress goals of car.
[2017-05-28] MEDS ORDERED: Morphine ORAL.SOLN 10 mg* 2 MG/ML UDC 5 ml ONE (02:47)
[2017-05-28] MEDS: Morphine ORAL.SOLN 10 mg* 2 MG/ML UDC 5 ml PO PRN ×3 (03:03→10:47)
[2017-05-28] MEDS: fentaNYL Patch Check Q Shift 1 NOTE SCH ×4 (03:51→19:28)
[2017-05-28] MEDS: Heparin VIAL(*) 5000 UNITS/ML VIAL (FIVE THOUSAND) SUBCUT SCH ×3 (05:09→22:18)
--- NOTE | 2017-05-28 07:53 | RAD ---
INDICATION: Shortness of breath. COMPARISON: Most recent comparison chest x-rays dated May 27, 2017 TECHNIQUE: Single AP portable view of the chest was obtained. FINDINGS: Image quality is compromised due to the relative inferiority of a portable chest x-ray. Similar to the previous chest x-ray there is mild cardiomegaly with coarse calcification overlying the arch of the aorta. The pulmonary vasculature appears indistinct and mildly engorged. There is density obscuring the left hemidiaphragm, worse when compared to the previous chest x-ray. There is a small degree of right-sided costophrenic angle blunting. Visualized bones are normal for the patient's age. IMPRESSION: Chest x-ray findings are most consistent with cardiogenic pulmonary edema. There is been interval appearance of density of securing the left hemidiaphragm which could represent a small pleural effusion and/or atelectasis.
[2017-05-28 08:43] LABS: ABS Basophils 0 10^3/ul (0-0.2); ABS Eosinophils 0.1 10^3/ul (0-0.6); ABS Monocytes 0.8 10^3/ul (0-0.8); ABS Neutrophils 7.2 10^3/ul (1.5-7.7); ABS Nucleated RBC 0 10^3/ul; Eosinophil % 0.6 % (0-6); Hematocrit 27 % (35-47); Hemoglobin 8.9 g/dl (12.0-16.0); Lymphocyte % 10.7 % (25-47); Mean Corpuscular HGB Conc 33 g/dl (31-36); Mean Corpuscular Hemoglobin 31 pg (27-31); Mean Corpuscular Volume 95 fL (80-97); Mean Platelet Volume 7.7 um3 (7.4-10.4); Nucleated Red Blood Cells % 0; Platelet Count 259 10^3/ul (150-450); Red Blood Count 2.87 10^6/ul (4.0-5.4); Red Cell Distribution Width 14 % (10.5-15); White Blood Count 9.1 10^3/ul (3.5-10.8)
[2017-05-28 08:58] LABS: EGFR Non-African American 32.9 (>60)
[2017-05-28] MEDS ORDERED: predniSONE TAB* 20 MG PO SCH (09:00)
--- NOTE | 2017-05-28 09:10 | PN ---
Subjective Date of Service: 05/28/17 Interval History: States shortness of breath is slightly better, feels weak, Denies chest pain or shortness of breath. Denies n/v reported diarrhea Family History: Unchanged from Admission Social History: Unchanged from Admission Past Medical History: Unchanged from Admission Objective Active Medications: Acetaminophen (Tylenol Tab*) 650 mg PO Q6H PRN PRN Reason: FEVER Last Admin: 05/27/17 08:20 Dose: 650 mg Hydrocodone Bitart/Acetaminophen ([place] 5-325 Tab*) 1 tab PO Q6H PRN PRN Reason: PAIN Albuterol (Ventolin 2.5 Mg/3 Ml Neb.Shahrzad*) 2.5 mg INH Q4H PRN PRN Reason: SOB/WHEEZING Last Admin: 05/26/17 03:43 Dose: 2.5 mg Albuterol/Ipratropium (Duoneb (Albuterol 2.5 Mg/Ipratropium 0.5 Mg)) 1 neb INH Q6H [facility] Last Admin: 05/28/17 07:55 Dose: 1 neb Alprazolam (Xanax Tab*) 0.25 mg PO Q6H PRN PRN Reason: ANXIETY Fentanyl (Duragesic Patch 12 Mcg/Hr *) 12 mcg TRANSDERM Q72H [facility] Stop: 05/29/17 08:59 Last Admin: 05/26/17 07:15 Dose: 12 mcg Fentanyl (Duragesic Patch 12 Mcg/Hr *) 12 mcg TRANSDERM Q72HR [facility] Gabapentin (Neurontin Cap(*)) 100 mg PO BID [facility] Last Admin: 05/27/17 21:24 Dose: 100 mg Gabapentin (Neurontin Cap(*)) 200 mg PO BEDTIME [facility] Last Admin: 05/27/17 21:24 Dose: 200 mg Guaifenesin (Mucinex*) 600 mg PO BID [facility] Last Admin: 05/27/17 21:25 Dose: 600 mg Heparin Sodium (Porcine) (Heparin Vial(*)) 5,000 units SUBCUT Q8HR [facility] Last Admin: 05/28/17 05:09 Dose: 5,000 units Azithromycin 500 mg/ Sodium (Chloride) 250 mls @ 250 mls/hr IVPB Q24H [facility] Cefepime HCl 1 gm/ Sodium (Chloride) 50 mls @ 100 mls/hr IVPB Q24H [facility] Lisinopril (Prinivil Tab*) 20 mg PO DAILY [facility] Last Admin: 05/27/17 08:20 Dose: 20 mg Morphine Sulfate (Morphine Oral.Soln 10 Mg*) 2 mg PO Q2H PRN PRN Reason: work of breathing Last Admin: 05/28/17 07:37 Dose: 2 mg Nystatin (Nystatin Oint*) 1 applic TOPICAL TID PRN PRN Reason: RASH Pharmacy Profile Note (Fentanyl Patch Check Q Shift) 1 note N/A 0700,1900 [facility] Last Admin: 05/28/17 07:01 Dose: 1 note Prednisone (Deltasone Tab*) 60 mg PO DAILY [facility] Triamcinolone Acetonide (Triamcinolone 0.025% Oint *) 1 applic TOPICAL BID PRN PRN Reason: RASH Vital Signs - 8 hr 05/28/17 05/28/17 05/28/17 01:15 01:30 01:43 Pulse Rate 99 92 Respiratory 16 22 36 Rate Blood Pressure 113/58 125/71 (mmHg) O2 Sat by Pulse 97 94 Oximetry 05/28/17 05/28/17 05/28/17 01:47 02:00 02:01 Pulse Rate 117 112 113 Respiratory 46 22 23 Rate Blood Pressure 179/108 162/77 (mmHg) O2 Sat by Pulse 93 91 95 Oximetry 05/28/17 05/28/17 05/28/17 02:16 02:27 02:30 Pulse Rate 112 102 Respiratory 31 24 25 Rate Blood Pressure 145/89 128/58 (mmHg) O2 Sat by Pulse 94 95 Oximetry 05/28/17 05/28/17 05/28/17 02:46 03:00 03:15 Pulse Rate 106 94 94 Respiratory 24 20 21 Rate Blood Pressure 135/92 128/73 122/65 (mmHg) O2 Sat by Pulse 95 95 95 Oximetry 05/28/17 05/28/17 05/28/17 03:30 03:45 04:00 Pulse Rate 85 86 84 Respiratory 20 21 22 Rate Blood Pressure 109/60 115/58 (mmHg) O2 Sat by Pulse 94 94 93 Oximetry 05/28/17 05/28/17 05/28/17 04:15 04:30 04:45 Pulse Rate 97 89 91 Respiratory 21 20 19 Rate Blood Pressure 151/79 118/67 134/70 (mmHg) O2 Sat by Pulse 95 96 98 Oximetry 05/28/17 05/28/17 05/28/17 05:00 05:15 05:30 Pulse Rate 92 81 87 Respiratory 20 20 19 Rate Blood Pressure 124/69 111/68 (mmHg) O2 Sat by Pulse 96 96 95 Oximetry 05/28/17 05/28/17 05/28/17 05:45 05:55 06:00 Pulse Rate 86 86 Respiratory 20 18 20 Rate Blood Pressure 126/63 114/68 (mmHg) O2 Sat by Pulse 93 95 Oximetry 05/28/17 05/28/17 05/28/17 06:15 06:30 06:45 Pulse Rate 87 87 90 Respiratory 18 18 20 Rate Blood Pressure 113/91 127/70 143/70 (mmHg) O2 Sat by Pulse 95 95 95 Oximetry 05/28/17 05/28/17 05/28/17 07:00 07:15 07:32 Pulse Rate 106 118 108 Respiratory 18 28 Rate Blood Pressure 156/84 162/100 99/66 (mmHg) O2 Sat by Pulse 97 92 94 Oximetry 05/28/17 05/28/17 05/28/17 07:56 08:00 08:01 Pulse Rate 100 101 95 Respiratory 22 25 24 Rate Blood Pressure 149/80 (mmHg) O2 Sat by Pulse 97 97 99 Oximetry Oxygen Devices in Use Now: High Flow Heated Nasal Cannula Appearance: appears frail, mildly tachypneic Eyes: No Scleral Icterus Ears/Nose/Mouth/Throat: Clear Oropharnyx, Mucous Membranes Moist Neck: NL Appearance and Movements; NL JVP, Trachea Midline Respiratory: Symmetrical Chest Expansion and Respiratory Effort - exp. wheezing t/o bilat , scattered rhonchi t/o bilat, diminished t/o Cardiovascular: NL Sounds; No Murmurs; No JVD, No Edema Abdominal: NL Sounds; No Tenderness; No Distention Skin: - - coccyx and buttock with excoriation, bilat lower leg with mild redness and dry scaley skin Neurological: Alert and Oriented x 3 Nutrition: Taking PO's Result Diagrams: 05/28/17 08:27 05/28/17 08:27 Microbiology and Other Data: Microbiology 05/25/17 21:00 Gram Stain - Final Sputum Expectorated Assess/Plan/Problems-Billing Assessment: Ms. Saldaña is an 86 y.o female with a history of chf, htn, ckd stage 3, hyperlipidemia, hypoxic respiratory failure and copd presented to the Emergency room with increased shortness of breath. Found to have Pneumonia. - Patient Problems (1) RLL pneumonia Current Visit: No Status: Acute Priority: High Onset Date: 11/09/13 Code (s): J18.9 - PNEUMONIA, UNSPECIFIED ORGANISM SNOMED Code(s): 452617095 Comment: ~ repeat chest xray this AM showed ~Chest x-ray findings are most consistent with cardiogenic pulmonary edema. There is been interval appearance of density of securing the left hemidiaphragm which could represent a small pleural effusion and/or atelectasis. ~ will change to azithromycin and cefepime ~ will add lasix 40 mg IVP x1 ~ continue albuterol nebs~ ~ will give prednisone 60 mg today ~ patient continue to have exp wheezing t/o bilat (2) Sepsis Current Visit: No Status: Acute Comment: resolved Secondary to pneumonia Continue cefepime and azithromycin (3) Elevated troponin Current Visit: No Status: Acute Priority: Medium Code(s): R79.89 - OTHER SPECIFIED ABNORMAL FINDINGS OF BLOOD CHEMISTRY SNOMED Code(s): 208722097 Comment: Patient currently denying CP Troponin at baseline from previous visits Suspect that elevation likely secondary to demand ischemia and CKD (4) COPD (chronic obstructive pulmonary disease) Current Visit: No Status: Chronic Code(s): J44.9 - CHRONIC OBSTRUCTIVE PULMONARY DISEASE, UNSPECIFIED SNOMED Code(s): 39515545 Comment: ~Albuterol neds as needed for shortness of breath ~ excerabation d/t pneumonia ~ will add prednisone (5) Heart failure Current Visit: Yes Status: Acute Code(s): I50.9 - HEART FAILURE, UNSPECIFIED SNOMED Code(s): 28766346 Comment: Simón give lasix 40 mg IV today strict i/o's (6) GERD (gastroesophageal reflux disease) Current Visit: No Status: Chronic Priority: High Onset Date: 11/09/13 Code(s): K21.9 - GASTRO-ESOPHAGEAL REFLUX DISEASE WITHOUT ESOPHAGITIS SNOMED Code(s): 367474571 Comment: Continue omeprazole. (7) HTN (hypertension) Current Visit: No Status: Chronic Priority: High Onset Date: 11/09/13 Code(s): I10 - ESSENTIAL (PRIMARY) HYPERTENSION SNOMED Code(s): 66075153 Comment: (8) Hyperkalemia Current Visit: No Status: Acute Code(s): E87.5 - HYPERKALEMIA SNOMED Code( s): 67720112 Comment: Potassium today 4.5 ~ Repeat BMP in AM (9) DVT prophylaxis Current Visit: No Status: Acute Priority: Medium Code(s): QUV7081 - SNOMED Code(s): 513092463 Comment: Heparin SubQ (10) Full code status Current Visit: No Status: Acute Code(s): Z78.9 - OTHER SPECIFIED HEALTH STATUS SNOMED Code(s): 458213407 Status and Disposition: inpatient
[2017-05-28] MEDS: guaiFENesin ER TAB 600 MG PO SCH ×2 (09:23→22:18)
[2017-05-28] MEDS: Lisinopril TAB* 10 MG PO SCH (09:23)
[2017-05-28] MEDS: predniSONE TAB* 20 MG PO SCH (09:23)
[2017-05-28] MEDS: Gabapentin CAP(*) 100 MG PO SCH ×3 (09:23→22:18)
[2017-05-28] MEDS: Cefepime(*) 1 GM in NS 0.9% 50 ML* 50 ML IVPB SCH (11:48)
[2017-05-28] MEDS: Azithromycin IV(*) 500 MG in NS 0.9% 250 ML* 250 ML IVPB SCH (12:44)
[2017-05-28] MEDS ORDERED: Furosemide IV* 10 MG/ML VIAL (40 MG) IV SCH (14:00)
[2017-05-28] MEDS: fentaNYL PATCH 12 MCG/HR TRANSDERM SCH (17:55)
[2017-05-29] MEDS: Albuterol/Ipratropium NEB.SOL* Albuterol 2.5 MG/Ipratropium 0.5 MG 3 ML INH SCH ×4 (01:56→20:14)
[2017-05-29] MEDS: ALPRAZolam TAB* 0.25 MG PO PRN ×2 (04:31→11:34)
[2017-05-29] MEDS: Heparin VIAL(*) 5000 UNITS/ML VIAL (FIVE THOUSAND) SUBCUT SCH ×3 (07:40→20:50)
[2017-05-29] MEDS: fentaNYL Patch Check Q Shift 1 NOTE SCH ×2 (07:40→18:58)
[2017-05-29] MEDS: fentaNYL PATCH 12 MCG/HR TRANSDERM SCH (08:35)
[2017-05-29] MEDS: guaiFENesin ER TAB 600 MG PO SCH ×2 (08:37→20:49)
[2017-05-29] MEDS: predniSONE TAB* 20 MG PO SCH (08:37)
[2017-05-29] MEDS: Gabapentin CAP(*) 100 MG PO SCH ×3 (08:37→20:50)
[2017-05-29] MEDS: Lisinopril TAB* 10 MG PO SCH (08:37)
--- NOTE | 2017-05-29 08:43 | PN ---
Subjective Date of Service: 05/29/17 Interval History: Patient states that her breathing is better, Denies shortness of breath at this time, denies chest pain, or abd pain. Denies N/V/D Family History: Unchanged from Admission Social History: Unchanged from Admission Past Medical History: Unchanged from Admission Objective Active Medications: Acetaminophen (Tylenol Tab*) 650 mg PO Q6H PRN PRN Reason: FEVER Last Admin: 05/27/17 08:20 Dose: 650 mg Hydrocodone Bitart/Acetaminophen ([place] 5-325 Tab*) 1 tab PO Q6H PRN PRN Reason: PAIN Albuterol (Ventolin 2.5 Mg/3 Ml Neb.Shahrzad*) 2.5 mg INH Q4H PRN PRN Reason: SOB/WHEEZING Last Admin: 05/26/17 03:43 Dose: 2.5 mg Albuterol/Ipratropium (Duoneb (Albuterol 2.5 Mg/Ipratropium 0.5 Mg)) 1 neb INH Q6H [facility] Last Admin: 05/29/17 07:48 Dose: 1 neb Alprazolam (Xanax Tab*) 0.25 mg PO Q6H PRN PRN Reason: ANXIETY Last Admin: 05/29/17 04:31 Dose: 0.25 mg Fentanyl (Duragesic Patch 12 Mcg/Hr *) 12 mcg TRANSDERM Q72H [facility] Stop: 05/29/17 08:59 Last Admin: 05/28/17 17:55 Dose: 12 mcg Fentanyl (Duragesic Patch 12 Mcg/Hr *) 12 mcg TRANSDERM Q72HR [facility] Gabapentin (Neurontin Cap(*)) 100 mg PO BID [facility] Last Admin: 05/28/17 22:18 Dose: 100 mg Gabapentin (Neurontin Cap(*)) 200 mg PO BEDTIME [facility] Last Admin: 05/28/17 22:18 Dose: 200 mg Guaifenesin (Mucinex*) 600 mg PO BID [facility] Last Admin: 05/28/17 22:18 Dose: 600 mg Heparin Sodium (Porcine) (Heparin Vial(*)) 5,000 units SUBCUT Q8HR [facility] Last Admin: 05/29/17 07:40 Dose: 5,000 units Azithromycin 500 mg/ Sodium (Chloride) 250 mls @ 250 mls/hr IVPB Q24H [facility] Last Admin: 05/28/17 12:44 Dose: 250 mls/hr Cefepime HCl 1 gm/ Sodium (Chloride) 50 mls @ 100 mls/hr IVPB Q24H [facility] Last Admin: 05/28/17 11:48 Dose: 100 mls/hr Lisinopril (Prinivil Tab*) 20 mg PO DAILY [facility] Last Admin: 05/28/17 09:23 Dose: 20 mg Morphine Sulfate (Morphine Oral.Soln 10 Mg*) 2 mg PO Q2H PRN PRN Reason: work of breathing Last Admin: 05/28/17 10:47 Dose: 2 mg Nystatin (Nystatin Oint*) 1 applic TOPICAL TID PRN PRN Reason: RASH Pharmacy Profile Note (Fentanyl Patch Check Q Shift) 1 note N/A 0700,1900 [facility] Last Admin: 05/29/17 07:40 Dose: 1 note Prednisone (Deltasone Tab*) 60 mg PO DAILY [facility] Last Admin: 05/28/17 09:23 Dose: 60 mg Triamcinolone Acetonide (Triamcinolone 0.025% Oint *) 1 applic TOPICAL BID PRN PRN Reason: RASH Vital Signs - 8 hr 05/29/17 05/29/17 05/29/17 01:00 01:01 01:57 Temperature Pulse Rate 70 67 68 Respiratory 16 16 14 Rate Blood Pressure 133/61 (mmHg) O2 Sat by Pulse 97 100 99 Oximetry 05/29/17 05/29/17 05/29/17 02:00 03:00 03:52 Temperature 97.7 F Pulse Rate 69 70 Respiratory 15 18 Rate Blood Pressure 128/60 135/70 (mmHg) O2 Sat by Pulse 99 100 Oximetry 05/29/17 05/29/17 05/29/17 04:00 04:31 05:00 Temperature Pulse Rate 63 80 Respiratory 16 33 15 Rate Blood Pressure 113/59 144/71 (mmHg) O2 Sat by Pulse 99 99 Oximetry 05/29/17 05/29/17 05/29/17 06:00 07:00 07:01 Temperature Pulse Rate 76 70 Respiratory 18 18 25 Rate Blood Pressure 132/65 135/50 (mmHg) O2 Sat by Pulse 100 97 Oximetry 05/29/17 05/29/17 07:22 07:50 Temperature 98.2 F Pulse Rate 78 Respiratory 15 Rate Blood Pressure (mmHg) O2 Sat by Pulse 100 Oximetry Oxygen Devices in Use Now: High Flow Heated Nasal Cannula Appearance: respirations easy and even, calm, appears comfortable Eyes: No Scleral Icterus Ears/Nose/Mouth/Throat: Clear Oropharnyx, Mucous Membranes Moist Neck: NL Appearance and Movements; NL JVP, Trachea Midline Respiratory: Symmetrical Chest Expansion and Respiratory Effort, Clear to Auscultation, - - diminished at the bases Cardiovascular: NL Sounds; No Murmurs; No JVD, No Edema Abdominal: NL Sounds; No Tenderness; No Distention Extremities: No Clubbing, Cyanosis, - - mild non pitting bilat lower leg edema Skin: - - coccyx and buttock with excoriation, bilat lower leg with mild erythema and scaley dry skin Neurological: Alert and Oriented x 3 Nutrition: Taking PO's Result Diagrams: 05/29/17 12:30 05/29/17 12:30 Microbiology and Other Data: Microbiology 05/25/17 21:00 Gram Stain - Final Sputum Expectorated Assess/Plan/Problems-Billing Assessment: Ms. Saldaña is an 86 y.o female with a history of chf, htn, ckd stage 3, hyperlipidemia, hypoxic respiratory failure and copd presented to the Emergency room with increased shortness of breath. Found to have Pneumonia. - Patient Problems (1) RLL pneumonia Current Visit: No Status: Acute Priority: High Onset Date: 11/09/13 Code (s): J18.9 - PNEUMONIA, UNSPECIFIED ORGANISM SNOMED Code(s): 606561698 Comment: ~ Sputum Culture positive for Branhamella Catarrhalis ~ will continue azithromycin and cefepime ~ continue albuterol nebs~ ~ will give prednisone 60 mg today (2) Sepsis Current Visit: No Status: Acute Comment: resolved Secondary to pneumonia with positive sputum for Branhamella Catarrhalis Continue cefepime and azithromycin (3) Acute and chronic respiratory failure with hypoxia Current Visit: Yes Status: Acute Code(s): J96.21 - ACUTE AND CHRONIC RESPIRATORY FAILURE WITH HYPOXIA SNOMED Code(s): 75663953 Comment: Improving ~ patient with severe resp distress on 04/29/17 ~ transferred to ICU for high flow O2 (4) Elevated troponin Current Visit: No Status: Acute Priority: Medium Code(s): R79.89 - OTHER SPECIFIED ABNORMAL FINDINGS OF BLOOD CHEMISTRY SNOMED Code(s): 383206838 Comment: Patient continues to deny CP Troponin at baseline from previous visits Suspect that elevation likely secondary to demand ischemia and CKD (5) COPD (chronic obstructive pulmonary disease) Current Visit: No Status: Chronic Code(s): J44.9 - CHRONIC OBSTRUCTIVE PULMONARY DISEASE, UNSPECIFIED SNOMED Code(s): 92357170 Comment: ~Albuterol neds as needed for shortness of breath ~ will titrate high O2 today and attempt to wean ~ excerabation d/t pneumonia ~ will continue prednisone (6) Heart failure Current Visit: Yes Status: Acute Code(s): I50.9 - HEART FAILURE, UNSPECIFIED SNOMED Code(s): 75301594 Comment: ~ 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 (8) HTN (hypertension) Current Visit: No Status: Chronic Priority: High Onset Date: 11/09/13 Code(s): I10 - ESSENTIAL (PRIMARY) HYPERTENSION SNOMED Code(s): 20192549 Comment: stable~ continue lisinopril (9) Hyperkalemia Current Visit: No Status: Acute Code(s): E87.5 - HYPERKALEMIA SNOMED Code( s): 21764300 Comment: resolved (10) DVT prophylaxis Current Visit: No Status: Acute Priority: Medium Code(s): DBW1279 - SNOMED Code(s): 560316974 Comment: Heparin SubQ (11) Full code status Current Visit: No Status: Acute Code(s): Z78.9 - OTHER SPECIFIED HEALTH STATUS SNOMED Code(s): 391276878 Status and Disposition: inpatient
[2017-05-29] MEDS: Furosemide TAB* 20 MG PO SCH (09:45)
[2017-05-29] MEDS ORDERED: NS 0.9% 50 ML* 50 ML ONE (11:02)
[2017-05-29] MEDS: Cefepime(*) 1 GM in NS 0.9% 50 ML* 50 ML IVPB SCH (11:30)
[2017-05-29] MEDS: Azithromycin IV(*) 500 MG in NS 0.9% 250 ML* 250 ML IVPB SCH (12:45)
[2017-05-29 12:58] LABS: ABS Basophils 0 10^3/ul (0-0.2); ABS Eosinophils 0 10^3/ul (0-0.6); ABS Lymphocytes 0.4 10^3/ul (1.0-4.8); ABS Monocytes 0.4 10^3/ul (0-0.8); ABS Neutrophils 9.9 10^3/ul (1.5-7.7); ABS Nucleated RBC 0 10^3/ul; Eosinophil % 0.2 % (0-6); Hematocrit 30 % (35-47); Hemoglobin 9.7 g/dl (12.0-16.0); Lymphocyte % 3.9 % (25-47); Mean Corpuscular HGB Conc 32 g/dl (31-36); Mean Corpuscular Hemoglobin 30 pg (27-31); Mean Corpuscular Volume 94 fL (80-97); Mean Platelet Volume 7.6 um3 (7.4-10.4); Nucleated Red Blood Cells % 0; Platelet Count 268 10^3/ul (150-450); Red Blood Count 3.21 10^6/ul (4.0-5.4); Red Cell Distribution Width 14 % (10.5-15); White Blood Count 10.8 10^3/ul (3.5-10.8)
[2017-05-29 13:25] LABS: EGFR Non-African American 36.9 (>60)
[2017-05-30] MEDS: Albuterol/Ipratropium NEB.SOL* Albuterol 2.5 MG/Ipratropium 0.5 MG 3 ML INH SCH ×5 (00:57→19:14)
[2017-05-30 05:52] LABS: ABS Basophils 0 10^3/ul (0-0.2); ABS Eosinophils 0 10^3/ul (0-0.6); ABS Monocytes 0.6 10^3/ul (0-0.8); ABS Neutrophils 6.5 10^3/ul (1.5-7.7); ABS Nucleated RBC 0 10^3/ul; Eosinophil % 0.3 % (0-6); Hematocrit 28 % (35-47); Hemoglobin 9.3 g/dl (12.0-16.0); Lymphocyte % 12.2 % (25-47); Mean Corpuscular HGB Conc 33 g/dl (31-36); Mean Corpuscular Hemoglobin 31 pg (27-31); Mean Corpuscular Volume 94 fL (80-97); Mean Platelet Volume 7.7 um3 (7.4-10.4); Nucleated Red Blood Cells % 0; Platelet Count 264 10^3/ul (150-450); Red Blood Count 2.99 10^6/ul (4.0-5.4); Red Cell Distribution Width 14 % (10.5-15); White Blood Count 8.2 10^3/ul (3.5-10.8)
[2017-05-30 06:07] LABS: EGFR Non-African American 33.4 (>60)
[2017-05-30] MEDS: Heparin VIAL(*) 5000 UNITS/ML VIAL (FIVE THOUSAND) SUBCUT SCH ×3 (06:10→21:17)
[2017-05-30] MEDS: fentaNYL Patch Check Q Shift 1 NOTE SCH ×2 (06:54→19:05)
[2017-05-30] MEDS: Lisinopril TAB* 10 MG PO SCH (08:31)
[2017-05-30] MEDS: predniSONE TAB* 20 MG PO SCH (08:31)
[2017-05-30] MEDS: Gabapentin CAP(*) 100 MG PO SCH ×3 (08:31→21:16)
[2017-05-30] MEDS: Furosemide TAB* 20 MG PO SCH (08:31)
[2017-05-30] MEDS: guaiFENesin ER TAB 600 MG PO SCH ×2 (08:31→21:16)
[2017-05-30] MEDS: ALPRAZolam TAB* 0.25 MG PO PRN ×3 (09:41→21:16)
--- NOTE | 2017-05-30 11:46 | PN ---
Subjective Date of Service: 05/30/17 Interval History: states that she is feeling better today. Denies chest pain. Denies shortness of breath. denies abd pain , N/v/d Family History: Unchanged from Admission Social History: Unchanged from Admission Past Medical History: Unchanged from Admission Objective Active Medications: Acetaminophen (Tylenol Tab*) 650 mg PO Q6H PRN PRN Reason: FEVER Last Admin: 05/27/17 08:20 Dose: 650 mg Hydrocodone Bitart/Acetaminophen ([place] 5-325 Tab*) 1 tab PO Q6H PRN PRN Reason: PAIN Albuterol (Ventolin 2.5 Mg/3 Ml Neb.Shahrzad*) 2.5 mg INH Q4H PRN PRN Reason: SOB/WHEEZING Last Admin: 05/26/17 03:43 Dose: 2.5 mg Albuterol/Ipratropium (Duoneb (Albuterol 2.5 Mg/Ipratropium 0.5 Mg)) 1 neb INH Q6H [facility] Last Admin: 05/30/17 09:42 Dose: 1 neb Alprazolam (Xanax Tab*) 0.25 mg PO Q6H PRN PRN Reason: ANXIETY Last Admin: 05/30/17 09:41 Dose: 0.25 mg Fentanyl (Duragesic Patch 12 Mcg/Hr *) 12 mcg TRANSDERM Q72HR [facility] Last Admin: 05/29/17 08:35 Dose: 12 mcg Furosemide (Lasix Tab*) 20 mg PO DAILY [facility] Last Admin: 05/30/17 08:31 Dose: 20 mg Gabapentin (Neurontin Cap(*)) 100 mg PO BID [facility] Last Admin: 05/30/17 08:31 Dose: 100 mg Gabapentin (Neurontin Cap(*)) 200 mg PO BEDTIME [facility] Last Admin: 05/29/17 20:50 Dose: 200 mg Guaifenesin (Mucinex*) 600 mg PO BID [facility] Last Admin: 05/30/17 08:31 Dose: 600 mg Heparin Sodium (Porcine) (Heparin Vial(*)) 5,000 units SUBCUT Q8HR [facility] Last Admin: 05/30/17 06:10 Dose: 5,000 units Azithromycin 500 mg/ Sodium (Chloride) 250 mls @ 250 mls/hr IVPB Q24H [facility] Last Admin: 05/29/17 12:45 Dose: 250 mls/hr Cefepime HCl (Maxipime 1 Gm In Dextrose Duplex (*)) 1 gm in 50 mls @ 100 mls/ hr IV 1200 [facility] Lisinopril (Prinivil Tab*) 20 mg PO DAILY [facility] Last Admin: 05/30/17 08:31 Dose: 20 mg Morphine Sulfate (Morphine Oral.Soln 10 Mg*) 2 mg PO Q2H PRN PRN Reason: work of breathing Last Admin: 05/28/17 10:47 Dose: 2 mg Nystatin (Nystatin Oint*) 1 applic TOPICAL TID PRN PRN Reason: RASH Pharmacy Profile Note (Fentanyl Patch Check Q Shift) 1 note N/A 0700,1900 [facility] Last Admin: 05/30/17 06:54 Dose: 1 note Prednisone (Deltasone Tab*) 60 mg PO DAILY [facility] Last Admin: 05/30/17 08:31 Dose: 60 mg Triamcinolone Acetonide (Triamcinolone 0.025% Oint *) 1 applic TOPICAL BID PRN PRN Reason: RASH Vital Signs - 8 hr 05/30/17 05/30/17 05/30/17 04:00 04:01 05:00 Temperature Pulse Rate 89 105 87 Respiratory 16 21 14 Rate Blood Pressure 135/74 120/67 (mmHg) O2 Sat by Pulse 99 100 97 Oximetry 05/30/17 05/30/17 05/30/17 06:00 06:01 07:00 Temperature Pulse Rate 88 91 92 Respiratory 23 23 18 Rate Blood Pressure 153/77 137/75 (mmHg) O2 Sat by Pulse 99 100 100 Oximetry 05/30/17 05/30/17 05/30/17 07:56 08:00 09:00 Temperature 98.9 F Pulse Rate 100 96 Respiratory 18 23 Rate Blood Pressure 148/88 138/76 (mmHg) O2 Sat by Pulse 100 100 Oximetry 05/30/17 05/30/17 05/30/17 09:41 10:00 10:32 Temperature Pulse Rate 97 95 Respiratory 21 17 16 Rate Blood Pressure 120/62 (mmHg) O2 Sat by Pulse 100 98 Oximetry 05/30/17 11:37 Temperature 99 F Pulse Rate Respiratory Rate Blood Pressure (mmHg) O2 Sat by Pulse Oximetry Oxygen Devices in Use Now: Nasal Cannula Appearance: appears comfortable, respirations easy and even. Eyes: No Scleral Icterus Ears/Nose/Mouth/Throat: Clear Oropharnyx, Mucous Membranes Moist Neck: NL Appearance and Movements; NL JVP, Trachea Midline Respiratory: Symmetrical Chest Expansion and Respiratory Effort, Clear to Auscultation, - - very diminished t/o bilat Cardiovascular: No Edema Abdominal: NL Sounds; No Tenderness; No Distention Extremities: No Clubbing, Cyanosis Skin: - - buttock and rectal area with excoriation, barrier applied, bilat lower leg with erythema and scaley Neurological: Alert and Oriented x 3 Nutrition: Taking PO's Result Diagrams: 05/30/17 05:40 05/30/17 05:40 Microbiology and Other Data: Microbiology 05/25/17 21:00 Gram Stain - Final Sputum Expectorated Assess/Plan/Problems-Billing Assessment: Ms. Saldaña is an 86 y.o female with a history of chf, htn, ckd stage 3, hyperlipidemia, hypoxic respiratory failure and copd presented to the Emergency room with increased shortness of breath. Found to have Pneumonia. - Patient Problems (1) RLL pneumonia Current Visit: No Status: Acute Priority: High Onset Date: 11/09/13 Code (s): J18.9 - PNEUMONIA, UNSPECIFIED ORGANISM SNOMED Code(s): 200889806 Comment: ~ Sputum Culture positive for Branhamella Catarrhalis ~ will continue azithromycin and cefepime ~ continue albuterol nebs as needed ~ ~ will decrease prednisone to 40 mg ~ occasional moist congested cough ~ continue flutter valve (2) Sepsis Current Visit: No Status: Acute Comment: resolved Secondary to pneumonia with positive sputum for Branhamella Catarrhalis Continue cefepime and azithromycin (3) Acute and chronic respiratory failure with hypoxia Current Visit: Yes Status: Acute Code(s): J96.21 - ACUTE AND CHRONIC RESPIRATORY FAILURE WITH HYPOXIA SNOMED Code(s): 19261418 Comment: Improving ~ patient with severe resp distress on 04/29/17 ~ transferred to ICU for high flow O2 ~ O2 was weaned and patient is tolerating nc at 3 liters o2 sats 96% (4) Elevated troponin Current Visit: No Status: Acute Priority: Medium Code(s): R79.89 - OTHER SPECIFIED ABNORMAL FINDINGS OF BLOOD CHEMISTRY SNOMED Code(s): 492210337 Comment: Patient continues to deny CP Troponin at baseline from previous visits Suspect that elevation likely secondary to demand ischemia and CKD (5) COPD (chronic obstructive pulmonary disease) Current Visit: No Status: Chronic Code(s): J44.9 - CHRONIC OBSTRUCTIVE PULMONARY DISEASE, UNSPECIFIED SNOMED Code(s): 47274831 Comment: ~Albuterol neds as needed for shortness of breath ~ high flow weaned on NC at 3 liters ~ excerabation d/t pneumonia ~ will continue prednisone (6) Heart failure Current Visit: Yes Status: Acute Code(s): I50.9 - HEART FAILURE, UNSPECIFIED SNOMED Code(s): 86653487 Comment: ~ acute on chronic diastolic heart failure ~ improving ~change lasix to 20 mg po today ~ strict i/o's (7) Afib Current Visit: Yes Status: Acute Code(s): I48.91 - UNSPECIFIED ATRIAL FIBRILLATION SNOMED Code(s): 32000717 Comment: New onset ~ will give magnesium 2 grams ~ suspect this could be related to stress and cardiac demands of her illness ~ Chadvasc2 score 5 ~ 10% risk of development of stroke /tia ~ Atria score 6 ~ 5.8% annually of bleeding ~high risk of bleeding recommends considering other antiocoagulation than coumadin ~ will consider antiocoagulation and cardiology consult is A- fib is persistent (8) GERD (gastroesophageal reflux disease) Current Visit: No Status: Chronic Priority: High Onset Date: 11/09/13 Code(s): K21.9 - GASTRO-ESOPHAGEAL REFLUX DISEASE WITHOUT ESOPHAGITIS SNOMED Code(s): 251963235 Comment: Continue omeprazole. (9) HTN (hypertension) Current Visit: No Status: Chronic Priority: High Onset Date: 11/09/13 Code(s): I10 - ESSENTIAL (PRIMARY) HYPERTENSION SNOMED Code(s): 13877461 Comment: Patient is hypotensive ~ will stop lisinopril (10) Hypotension Current Visit: Yes Status: Acute Comment: Will hold Lisinopril (11) Hyperkalemia Current Visit: No Status: Acute Code(s): E87.5 - HYPERKALEMIA SNOMED Code( s): 93806518 Comment: resolved (12) DVT prophylaxis Current Visit: No Status: Acute Priority: Medium Code(s): [id number] - SNOMED Code(s): 245954428 Comment: Heparin SubQ (13) Full code status Current Visit: No Status: Acute Code(s): Z78.9 - OTHER SPECIFIED HEALTH STATUS SNOMED Code(s): 511366130 Status and Disposition: inpatient
[2017-05-30] MEDS: Morphine ORAL.SOLN 10 mg* 2 MG/ML UDC 5 ml PO PRN ×2 (11:52→16:29)
[2017-05-30] MEDS ORDERED: Cefepime 1 GM in Dextrose(*) 1 GM/50 ML BAG IV SCH (12:00)
[2017-05-30] MEDS ORDERED: Magnesium Sulfate 2 GM IV* 2 GM/50 ML BAG IVPB ONE (12:10)
[2017-05-30] MEDS: Azithromycin IV(*) 500 MG in NS 0.9% 250 ML* 250 ML IVPB SCH (13:10)
--- NOTE | 2017-05-30 13:59 | ED ---
Patricia Samayoa Edward, scribed for Liu Starkey MD on 05/25/17 at 1503 . Shortness of Breath - HPI Summary HPI Summary: 86 y/o female presents to the ED c/o intermittent cough and SOB lasting around 2 weeks, worsening. Pt was at the pain clinic before coming to the ED. Sx not alleviated by anything. Pt sleeps in a recliner and c/o increased LE edema recently. PMHx COPD. - History of Current Complaint Chief Complaint: EDShortnessOfBreath Time Seen by Provider: 05/25/17 15:02 Hx Obtained From: Patient Onset/Duration: Lasting Weeks, Still Present Associated Signs & Symptoms: Cough (Productive), Edema - Allergy/Home Medications Allergies/Adverse Reactions: Allergies Allergy/AdvReac Type Severity Reaction Status Date / Time codeine Allergy makes her Verified 05/25/17 14:54 crazy Sulfa (Sulfonamide Allergy Insomnia Verified 05/25/17 14:54 Antibiotics) Home Medications: Home Medications ALPRAZolam TAB* [Xanax TAB*] 0.25 - 0.5 mg PO BID MDD 4 05/25/17 [History Confirmed 05/25/17] Albuterol 2.5MG/3ML (0.083%)* [Ventolin 2.5 MG/3 ML NEB.SAUMYA*] 2.5 mg INH QID [History Confirmed 05/25/17] Furosemide TAB* [Lasix TAB*] 20 mg PO DAILY 05/25/17 [History Confirmed 05/25/17 ] Gabapentin CAP(*) [Neurontin 100 mg CAP(*)] 100 mg PO BID 05/25/17 [History Confirmed 05/25/17] Gabapentin CAP(*) [Neurontin 100 mg CAP(*)] 200 mg PO BEDTIME 05/25/17 [History Confirmed 05/25/17] Hydrocodone/Acetamin 10/325(NF [[place] 10/325 (NF)] 0.5 - 1 tab PO Q6H PRN [History Confirmed 05/25/17] Ipratropium 0.5MG/2.5ML NEB* [Atrovent 0.5 MG NEB.SAUMYA*] 0.5 mg INH QID PRN 05/25 [History Confirmed 05/25/17] Lisinopril TAB* [Prinivil TAB*] 20 mg PO DAILY 05/25/17 [History Confirmed 05/25] Nystatin OINT* 1 applic TOPICAL TID PRN 05/25/17 [History Confirmed 05/25/17] Triamcinolone 0.1% CREAM (NF) [Kenalog 0.1% Cream (NF)] 1 applic TOPICAL BID PRN 05/25/17 [History Confirmed 05/25/17] fentaNYL PATCH 12 MCG/HR * [Duragesic Patch 12 Mcg/Hr *] 1 patch TOPICAL Q72H [History Confirmed 05/25/17] PMH/Surg Hx/FS Hx/Imm Hx Previously Healthy: No Endocrine/Hematology History: Reports: Hx Diabetes Cardiovascular History: Reports: Hx Hypertension, Hx Syncope - "years ago", Other Cardiovascular Problems/Disorders - Murmur Denies: Hx Pacemaker/ICD, Hx Peripheral Vascular Disease Respiratory History: Reports: Hx Asthma, Hx Chronic Bronchitis, Hx Chronic Obstructive Pulmonary Disease (COPD), Hx Pneumonia, Hx Seasonal Allergies, Other Respiratory Problems/Disorders - Emphysema GI History: Reports: Hx Gastroesophageal Reflux Disease - ON DAILY MEDS, Hx Hiatal Hernia, Other GI Disorders - internal hemorhoids History: Reports: Other Problems/Disorders - bladder infections in past Denies: Hx Dialysis, Hx Renal Disease Musculoskeletal History: Reports: Hx Arthritis, Hx Back Problems, Hx Osteoporosis, Hx Scoliosis, Other Musculoskeletal History - Torn Meniscus, degenerative disk dx Sensory History: Reports: Hx Contacts or Glasses Denies: Hx Cataracts, Hx Glaucoma, Hx Hearing Aid, Other Sensory Impairments Opthamlomology History: Reports: Hx Contacts or Glasses Denies: Hx Cataracts, Hx Glaucoma, Other Sensory Impairments Neurological History: Reports: Other Neuro Impairments/Disorders - PAIN CLINIC PT Denies: Hx Dementia, Hx Headaches, Hx Seizures, Hx Transient Ischemic Attacks (TIA) Psychiatric History: Denies: Hx Panic Disorder - Cancer History Cancer Type, Location and Year: Recently diagnosed skin cancer near anus Hx Chemotherapy: No Hx Radiation Therapy: No - Surgical History Surgery Procedure, Year, and Place: AGE 16 Appendectomy. 1970s HYSTERECTOMY & Hernia Repair [facility]. 2000s Cararact Right Eye [facility] Hx Anesthesia Reactions: Yes - SLOW TO WAKE UP Infectious Disease History: No Infectious Disease History: Denies: Traveled Outside the [place] in Last 30 Days - Family History Known Family History: Positive: Other - No FMHx of Breast CA - Social History Alcohol Use: None Hx Substance Use: No Substance Use Type: Reports: None Substance Use Comment - Amount & Last Used: fentanyl and norcp Hx Tobacco Use: Yes Smoking Status (MU): Former Smoker Type: Cigarettes Amount Used/How Often: 1PPD 60+ YEARS Have You Smoked in the Last Year: No Review of Systems Negative: Fever, Chills Negative: Erythema Negative: Sore Throat Negative: Chest Pain Positive: Shortness Of Breath, Cough Negative: Abdominal Pain, Vomiting, Nausea Negative: dysuria, hematuria Positive: Edema. Negative: Myalgia Negative: Rash Neurological: Other - no dizziness All Other Systems Reviewed And Are Negative: Yes Physical Exam - Summary Physical Exam Summary: Constitutional: Well-developed, Well-nourished, Alert. (-) Distressed Skin: Warm, Dry HENT: Normocephalic; Atraumatic Eyes: Conjunctiva normal Neck: Musculoskeletal ROM normal neck. (-) JVD, (-) Stridor, (-) Tracheal deviation Cardio: Rhythm regular, rate normal, Heart sounds normal; Intact distal pulses; The pedal pulses are 2+ and symmetric. Radial pulses are 2+ and symmetric. (-) Murmur Pulmonary/Chest wall: Effort normal. (-) Respiratory distress, (-) Wheezes, (-) Rales. Diminished, tachypnic. 1 word sentence-fragments. Abd: Soft, (-) Tenderness, (-) Distension, (-) Guarding, (-) Rebound Musculoskeletal: (-) Edema Lymph: (-) Cervical adenopathy Neuro: Alert, Oriented x3 Psych: Mood and affect Normal Triage Information Reviewed: Yes Vital Signs On Initial Exam: Initial Vitals Temp Pulse Resp BP Pulse Ox 98.2 F 110 30 159/95 99 05/25/17 14:51 05/25/17 14:51 05/25/17 14:51 05/25/17 14:51 05/25/17 14:51 Vital Signs Reviewed: Yes Diagnostics - Vital Signs Vital Signs Temp Pulse Resp BP Pulse Ox 05/25/17 14:51 98.2 F 110 30 159/95 99 - Laboratory Lab Results: Lab Results 05/25/17 05/25/17 05/25/17 Range/Units 15:11 15:11 15:11 WBC 10.0 (3.5-10.8) 10^3/ul RBC 3.30 L (4.0-5.4) 10^6/ul Hgb 10.4 L (12.0-16.0) g/dl Hct 31 L (35-47) % MCV 95 (80-97) fL MCH 32 H (27-31) pg MCHC 33 (31-36) g/dl RDW 14 (10.5-15) % Plt Count 284 (150-450) 10^3/ul MPV 8 (7.4-10.4) um3 Neut % (Auto) 77.0 (38-83) % Lymph % (Auto) 8.0 L (25-47) % Collin % (Auto) 10.5 H (0-7) % Eos % (Auto) 4.1 (0-6) % Baso % (Auto) 0.4 (0-2) % Absolute Neuts (auto) 7.7 (1.5-7.7) 10^3/ul Absolute Lymphs (auto) 0.8 L (1.0-4.8) 10^3/ul Absolute Monos (auto) 1.0 H (0-0.8) 10^3/ul Absolute Eos (auto) 0.4 (0-0.6) 10^3/ul Absolute Basos (auto) 0 (0-0.2) 10^3/ul Absolute Nucleated RBC 0 10^3/ul Nucleated RBC % 0 Sodium 138 (133-145) mmol/L Potassium 5.0 (3.5-5.0) mmol/L Chloride 100 L (101-111) mmol/L Carbon Dioxide 30 (22-32) mmol/L Anion Gap 8 (2-11) mmol/L BUN 40 H (6-24) mg/dL Creatinine 1.40 H (0.51-0.95) mg/dL Est GFR ( Amer) 45.9 (>60) Est GFR (Non-Af Amer) 35.7 (>60) BUN/Creatinine Ratio 28.6 H (8-20) Glucose 82 (70-100) mg/dL Lactic Acid 0.7 (0.5-2.0) mmol/L Calcium 9.7 (8.6-10.3) mg/dL Total Bilirubin 0.40 (0.2-1.0) mg/dL AST 17 (13-39) U/L ALT 10 (7-52) U/L Alkaline Phosphatase 80 (34-104) U/L Troponin I 0.05 H* (<0.04) ng/mL B-Natriuretic Peptide ( - 100) pg/mL Total Protein 7.4 (6.4-8.9) g/dL Albumin 3.8 (3.2-5.2) g/dL Globulin 3.6 (2-4) g/dL Albumin/Globulin Ratio 1.1 (1-3) 05/25/17 Range/Units 15:11 WBC (3.5-10.8) 10^3/ul RBC (4.0-5.4) 10^6/ul Hgb (12.0-16.0) g/dl Hct (35-47) % MCV (80-97) fL MCH (27-31) pg MCHC (31-36) g/dl RDW (10.5-15) % Plt Count (150-450) 10^3/ul MPV (7.4-10.4) um3 Neut % (Auto) (38-83) % Lymph % (Auto) (25-47) % Collin % (Auto) (0-7) % Eos % (Auto) (0-6) % Baso % (Auto) (0-2) % Absolute Neuts (auto) (1.5-7.7) 10^3/ul Absolute Lymphs (auto) (1.0-4.8) 10^3/ul Absolute Monos (auto) (0-0.8) 10^3/ul Absolute Eos (auto) (0-0.6) 10^3/ul Absolute Basos (auto) (0-0.2) 10^3/ul Absolute Nucleated RBC 10^3/ul Nucleated RBC % Sodium (133-145) mmol/L Potassium (3.5-5.0) mmol/L Chloride (101-111) mmol/L Carbon Dioxide (22-32) mmol/L Anion Gap (2-11) mmol/L BUN (6-24) mg/dL Creatinine (0.51-0.95) mg/dL Est GFR ( Amer) (>60) Est GFR (Non-Af Amer) (>60) BUN/Creatinine Ratio (8-20) Glucose (70-100) mg/dL Lactic Acid (0.5-2.0) mmol/L Calcium (8.6-10.3) mg/dL Total Bilirubin (0.2-1.0) mg/dL AST (13-39) U/L ALT (7-52) U/L Alkaline Phosphatase (34-104) U/L Troponin I (<0.04) ng/mL B-Natriuretic Peptide 492 H ( - 100) pg/mL Total Protein (6.4-8.9) g/dL Albumin (3.2-5.2) g/dL Globulin (2-4) g/dL Albumin/Globulin Ratio (1-3) Result Diagrams: 05/30/17 05:40 05/30/17 05:40 Lab Statement: Any lab studies that have been ordered have been reviewed, and results considered in the medical decision making process. - Radiology CXR Xray Interpretation: Positive (See Comments) - NEW RIGHT BASILAR INFILTRATE Radiology Interpretation Completed By: Radiologist - ED PHYSICIAN REVIEWS AND AGREES - EKG 1 EKG Interpretation: 15:19 - Sinus tachycardia @ 103 BPM. No STEMI. Re-Evaluation - Re-Evaluation 1 Re-Evaluation Time: 16:53 Comment: dicsuss test results, plan to admit Course/Dx - Course Assessment/Plan: 86 y/o female presents to the ED c/o intermittent cough and SOB lasting around 2 weeks, worsening. Pt was at the pain clinic before coming to the ED. Sx not alleviated by anything. Pt sleeps in a recliner and c/o increased LE edema recently. PMHx COPD. EKG - 15:19 - Sinus tachycardia @ 103 BPM. No STEMI. CXR SHOWS NEW RIGHT BASILAR INFILTRATE. Some improvement with nebulizer. Due to the pt's tachypnea, we will bring the pt to observation status. Spoke with Dr. Saavedra regarding admission at 16:50. Pt will be [facility] [place] [facility] - Diagnoses Provider Diagnoses: Elevated troponin, Right lower lobe pneumonia, Community acquired pneumonia, Congestive heart failure - Physician Notifications Discussed Care of Patient With: Diana Saavedra Time Discussed With Above Provider: 16:51 Instructed by Provider To: Admit As Inpatient Discharge - Sign-Out/Discharge Documenting (check all that apply): Discharge - icu - Discharge Plan Condition: Stable Disposition: ADMITTED TO [facility] - Billing Disposition and Condition Condition: STABLE Disposition: [facility] The documentation as recorded by the Patricia campoverde Edward accurately reflects the service I personally performed and the decisions made by Jaky mauro Jerry, MD.
[2017-05-30] MEDS: Nystatin OINT* 15 GM TOPICAL PRN ×2 (14:23→21:17)
[2017-05-31] MEDS: Albuterol/Ipratropium NEB.SOL* Albuterol 2.5 MG/Ipratropium 0.5 MG 3 ML INH SCH ×4 (00:37→18:09)
[2017-05-31] MEDS: Heparin VIAL(*) 5000 UNITS/ML VIAL (FIVE THOUSAND) SUBCUT SCH ×3 (06:21→22:11)
[2017-05-31 06:50] LABS: Hematocrit 29 % (35-47); Hemoglobin 9.7 g/dl (12.0-16.0); Mean Corpuscular HGB Conc 33 g/dl (31-36); Mean Corpuscular Hemoglobin 31 pg (27-31); Mean Corpuscular Volume 94 fL (80-97); Mean Platelet Volume 7.9 um3 (7.4-10.4); Platelet Count 287 10^3/ul (150-450); Red Cell Distribution Width 14 % (10.5-15)
[2017-05-31] MEDS: fentaNYL Patch Check Q Shift 1 NOTE SCH ×2 (07:12→19:32)
[2017-05-31 07:33] LABS: EGFR Non-African American 24.6 (>60)
[2017-05-31 08:27] LABS: ABS Basophils 0.1 10^3/ul (0-0.2); ABS Eosinophils 0 10^3/ul (0-0.6); ABS Lymphocytes 1.2 10^3/ul (1.0-4.8); ABS Monocytes 0.7 10^3/ul (0-0.8); ABS Neutrophils 8.1 10^3/ul (1.5-7.7); ABS Nucleated RBC 0 10^3/ul; Eosinophil % 0.4 % (0-6); Lymphocyte % 11.7 % (25-47); Nucleated Red Blood Cells % 0
[2017-05-31] MEDS ORDERED: predniSONE TAB* 20 MG PO SCH (09:00)
[2017-05-31] MEDS: Gabapentin CAP(*) 100 MG PO SCH ×3 (09:17→19:59)
[2017-05-31] MEDS: guaiFENesin ER TAB 600 MG PO SCH ×2 (09:18→19:57)
--- NOTE | 2017-05-31 09:24 | PN ---
Subjective Date of Service: 05/31/17 Interval History: Afib continues but rates controlled. Does not think she has had before. Denies Hx of GIB. Colonscopy long time ago. Use walker, denies Hx of CVA or falls. Back to her baseline 2L chronic NC use. Was hypotensive 70/40s at 2pm. BAG CHECKER bumped to 1.93 from 1.48 BNP climbing still. coughing improved. nonproductive. hungry Family History: Unchanged from Admission Social History: Unchanged from Admission Past Medical History: Unchanged from Admission Objective Active Medications: Acetaminophen (Tylenol Tab*) 650 mg PO Q6H PRN PRN Reason: FEVER Last Admin: 05/27/17 08:20 Dose: 650 mg Hydrocodone Bitart/Acetaminophen ([place] 5-325 Tab*) 1 tab PO Q6H PRN PRN Reason: PAIN Albuterol (Ventolin 2.5 Mg/3 Ml Neb.Shahrzad*) 2.5 mg INH Q4H PRN PRN Reason: SOB/WHEEZING Last Admin: 05/26/17 03:43 Dose: 2.5 mg Albuterol/Ipratropium (Duoneb (Albuterol 2.5 Mg/Ipratropium 0.5 Mg)) 1 neb INH Q6H [facility] Last Admin: 05/31/17 00:37 Dose: 1 neb Alprazolam (Xanax Tab*) 0.25 mg PO Q6H PRN PRN Reason: ANXIETY Last Admin: 05/30/17 21:16 Dose: 0.25 mg Fentanyl (Duragesic Patch 12 Mcg/Hr *) 12 mcg TRANSDERM Q72HR [facility] Last Admin: 05/29/17 08:35 Dose: 12 mcg Gabapentin (Neurontin Cap(*)) 100 mg PO BID CORNEL Last Admin: 05/30/17 21:16 Dose: 100 mg Gabapentin (Neurontin Cap(*)) 200 mg PO BEDTIME CORNEL Last Admin: 05/30/17 21:16 Dose: 200 mg Guaifenesin (Mucinex*) 600 mg PO BID [facility] Last Admin: 05/30/17 21:16 Dose: 600 mg Heparin Sodium (Porcine) (Heparin Vial(*)) 5,000 units SUBCUT Q8HR [facility] Last Admin: 05/31/17 06:21 Dose: 5,000 units Cefepime HCl (Maxipime 1 Gm In Dextrose Duplex (*)) 1 gm in 50 mls @ 100 mls/ hr IV 1200 [facility] Last Admin: 05/30/17 12:05 Dose: 100 mls/hr Morphine Sulfate (Morphine Oral.Soln 10 Mg*) 2 mg PO Q2H PRN PRN Reason: work of breathing Last Admin: 05/30/17 16:29 Dose: 2 mg Nystatin (Nystatin Oint*) 1 applic TOPICAL TID PRN PRN Reason: RASH Last Admin: 05/30/17 21:17 Dose: 1 applic Pharmacy Profile Note (Fentanyl Patch Check Q Shift) 1 note N/A 0700,1900 [facility] Last Admin: 05/31/17 07:12 Dose: 1 note Prednisone (Deltasone Tab*) 40 mg PO DAILY [facility] Triamcinolone Acetonide (Triamcinolone 0.025% Oint *) 1 applic TOPICAL BID PRN PRN Reason: RASH Vital Signs - 8 hr 05/31/17 05/31/17 05/31/17 02:00 02:01 03:00 Temperature Pulse Rate 89 87 84 Respiratory 14 15 14 Rate Blood Pressure 131/77 121/71 (mmHg) O2 Sat by Pulse 100 100 99 Oximetry 05/31/17 05/31/17 05/31/17 04:00 04:01 05:00 Temperature Pulse Rate 86 82 80 Respiratory 15 14 15 Rate Blood Pressure 151/78 (mmHg) O2 Sat by Pulse 100 100 99 Oximetry 05/31/17 05/31/17 05/31/17 05:02 06:00 07:00 Temperature Pulse Rate 82 88 Respiratory 19 14 Rate Blood Pressure 122/66 136/83 141/81 (mmHg) O2 Sat by Pulse 100 100 Oximetry 05/31/17 05/31/17 07:26 08:00 Temperature 98.1 F Pulse Rate 81 Respiratory 18 Rate Blood Pressure 122/74 (mmHg) O2 Sat by Pulse 99 Oximetry Oxygen Devices in Use Now: Nasal Cannula Appearance: NAD Ears/Nose/Mouth/Throat: NL Teeth, Lips, Gums Neck: NL Appearance and Movements; NL JVP Respiratory: - - rales left mid lung, decreased bases b/l. Cardiovascular: - - JVD lower 1/3 neck with positive NJR. irregularly irregular , controlled rate. no m/r/g Abdominal: NL Sounds; No Tenderness; No Distention, No Hepatosplenomegaly Extremities: - - 1+ edema. b/l Lower extremities cool to touch. difficult to palpate DP. Neurological: Alert and Oriented x 3, NL Sensation, NL Muscle Strength and Tone Nutrition: Taking PO's Result Diagrams: 05/31/17 06:19 05/31/17 06:19 Additional Lab and Data: Laboratory Results - last 24 hr 05/30/17 05/31/17 05/31/17 10:35 06:19 06:19 WBC 10.0 RBC 3.10 L Hgb 9.7 L Hct 29 L MCV 94 MCH 31 MCHC 33 RDW 14 Plt Count 287 MPV 7.9 Neut % (Auto) 80.2 Lymph % (Auto) 11.7 L [place] % (Auto) 6.5 Eos % (Auto) 0.4 Baso % (Auto) 1.2 Absolute Neuts (auto) 8.1 H Absolute Lymphs (auto) 1.2 Absolute Monos (auto) 0.7 Absolute Eos (auto) 0 Absolute Basos (auto) 0.1 Absolute Nucleated RBC 0 Nucleated RBC % 0 Sodium 133 Potassium 5.3 H Chloride 98 L Carbon Dioxide 32 Anion Gap 3 BUN 60 H Creatinine 1.93 H Est GFR ( Amer) 31.7 Est GFR (Non-Af Amer) 24.6 BUN/Creatinine Ratio 31.1 H Glucose 75 Calcium 9.1 B-Natriuretic Peptide TSH 3.31 05/31/17 06:19 WBC RBC Hgb Hct MCV MCH MCHC RDW Plt Count MPV Neut % (Auto) Lymph % (Auto) [place] % (Auto) Eos % (Auto) Baso % (Auto) Absolute Neuts (auto) Absolute Lymphs (auto) Absolute Monos (auto) Absolute Eos (auto) Absolute Basos (auto) Absolute Nucleated RBC Nucleated RBC % Sodium Potassium Chloride Carbon Dioxide Anion Gap BUN Creatinine Est GFR ( Amer) Est GFR (Non-Af Amer) BUN/Creatinine Ratio Glucose Calcium B-Natriuretic Peptide 899 H TSH Microbiology and Other Data: Microbiology 05/25/17 21:00 Sputum Expectorated Gram Stain - Final 05/25/17 21:00 Sputum Expectorated Sputum Culture - Final Branhamella Catarrhalis Normal Bri 05/26/17 03:45 Urine Urine Culture - Final No Growth (<1,000 CFU/mL) Assess/Plan/Problems-Billing Assessment: 86 y.o female PMH diastolic chf, htn, ckd stage 3-4, hyperlipidemia, chronic hypoxic respiratory failure (2L), COPD p/w increased shortness of breath. Moraxella Catarrhalis Pneumonia. Required vapotherm in ICU. Course complicated by new onset Afib (rate controlled). - Patient Problems (1) Acute and chronic respiratory failure with hypoxia Current Visit: Yes Status: Acute Code(s): J96.21 - ACUTE AND CHRONIC RESPIRATORY FAILURE WITH HYPOXIA SNOMED Code(s): 67397198 Comment: Back to baseline of 2L 2/2 pna, copd, chf (2) Afib Current Visit: Yes Status: Acute Code(s): I48.91 - UNSPECIFIED ATRIAL FIBRILLATION SNOMED Code(s): 96613919 Comment: New onset ~ Chadvasc2 score 5 ~ 6.7% risk of development of stroke /tia ~ HasBled score of 1 low risk - Pt has NOT wanted coumadin in past for DVT and CrCl has dropped to 18. - Pt aggreable to starting NOAC but will hold given worsening kidney function (3) Heart failure Current Visit: Yes Status: Acute Code(s): I50.9 - HEART FAILURE, UNSPECIFIED SNOMED Code(s): 85122164 Comment: lasix 40IV today ~ strict i/o's (4) Hypotension Current Visit: Yes Status: Acute Comment: hold Lisinopril given hypotention yest. add back as able. (5) Acute on chronic kidney failure Current Visit: No Status: Acute Priority: Medium Code(s): N17.9 - ACUTE KIDNEY FAILURE, UNSPECIFIED; N18.9 - CHRONIC KIDNEY DISEASE, UNSPECIFIED SNOMED Code(s): 243014190 Comment: BAG CHECKER 1.48 to 1.93 after hypotensive yesterday. Baseline ~1.4-1.7 Ulytes (6) Anemia Current Visit: No Status: Acute Priority: Medium Onset Date: 11/09/13 Code(s): D64.9 - ANEMIA, UNSPECIFIED SNOMED Code(s): 888320972 Comment: Chronic normocytic anemia Hgb stable no iron studies since 2016. Repeat now. likely component of renal failure. (7) RLL pneumonia Current Visit: No Status: Acute Priority: High Onset Date: 11/09/13 Code (s): J18.9 - PNEUMONIA, UNSPECIFIED ORGANISM SNOMED Code(s): 391198604 Comment: ~ Sputum Culture positive for Moraxella(Branhamella) Catarrhalis ~ s/p azithromycin x4 days total - this is day 6 of antibiotics. got vanc x1, 3 days zosyn, 3 days(overlaping) cefepime - start augmentin, stop cefepime ~ prednisone to 20mg from 40 mg (8) Sepsis Current Visit: No Status: Acute Comment: resolved. had fever, tachycardia, tachypnia, source, leukocytosis. Secondary to pneumonia with positive sputum for Branhamella Catarrhalis (9) COPD (chronic obstructive pulmonary disease) Current Visit: No Status: Chronic Code(s): J44.9 - CHRONIC OBSTRUCTIVE PULMONARY DISEASE, UNSPECIFIED SNOMED Code(s): 22166919 Comment: ~Albuterol neds as needed for shortness of breath ~ high flow weaned on NC at 2 liters ~ excerabation d/t pneumonia ~ wean prednisone (10) HTN (hypertension) Current Visit: No Status: Chronic Priority: High Onset Date: 11/09/13 Code(s): I10 - ESSENTIAL (PRIMARY) HYPERTENSION SNOMED Code(s): 65354912 Comment: Patient is hypotensive ~ will stop lisinopril (11) Restless legs syndrome (RLS) Current Visit: No Status: Chronic Priority: Medium Onset Date: 11/09/13 Comment: Continue gabapentin. (12) PVD (peripheral vascular disease) Current Visit: Yes Status: Acute Code(s): I73.9 - PERIPHERAL VASCULAR DISEASE, UNSPECIFIED SNOMED Code(s): 302107472 Comment: concern given chronic hip pains and e/o poor perfusion. getting ANNELISE. Status and Disposition: inpatient. transfer to floor. PT reordered.
[2017-05-31] MEDS: HYDROcodone/ACETAMIN 5-325 MG* 1 TAB PO PRN ×2 (09:32→22:58)
[2017-05-31] MEDS ORDERED: Furosemide IV* 10 MG/ML VIAL (40 MG) IV ONE (09:38)
[2017-05-31] MEDS ORDERED: Amoxicillin/Clavulanate TAB* 875 MG PO SCH (10:00)
--- NOTE | 2017-05-31 10:48 | ECHO ---
Patient: JOSE WARNER [facility] Rec#: [id number] : 1930 Date: 05/31/2017 Age: 86y Height: 157.48 cm / 62.0 in Weight: 52.16 kg / 115.0 lbs Sex: F BSA: 1.51 Room#: ICU 9 Admit Date#: 05/25/2017 Type: Inpatient Referring: Isatu Pimentel Reading: Chris Terry MD Wet Primer Powder Blender: Marcela Ghosh,SHEMARCS,RDMS CC: Dorene Cook MD Transthoracic Echocardiogram Indication: AFIB BP: 136/83 HR: 107 Rhythm: A-Fib Findings History: COPD, respiratory failure, CKD, HTN, HLD, CHF Technical Comments: The study quality is good. Left Ventricle: The left ventricular chamber size is decreased. Moderate concentric left ventricular hypertrophy is observed.with a sigmoid septum. There is increased basal septal hypertrophy noted without evidence of an increased gradient across the left ventricular outflow tract. Global left ventricular wall motion and contractility are within normal limits. The estimated ejection fraction is 60-65%. The assessment of diastolic function is non-diagnostic. Left Atrium: The left atrium is severely dilated. Right Ventricle: The right ventricle wall thickness is mildly increased. The right ventricular cavity size is normal. The right ventricular global systolic function is normal. Right Atrium: The right atrium is mild to moderately dilated. A prominent chiari network is noted in the right atrium. Aortic Valve: The aortic valve is trileaflet. The aortic valve leaflets are mildly thickened. There is no evidence of aortic regurgitation. There is no evidence of aortic stenosis. Mitral Valve: There is mitral annular calcification. The mitral valve leaflets are mildly thickened. Mitral valve leaflet mobility is mildly restricted.probably related to MAC. There is mild to moderate mitral regurgitation. There is mild mitral stenosis. Tricuspid Valve: The tricuspid valve leaflets are mildly thickened. There is mild tricuspid regurgitation. There is evidence of borderline pulmonary hypertension. Pulmonic Valve: The pulmonic valve structure is not well visualized. There is no evidence of pulmonic regurgitation. Pericardium: There is no significant pericardial effusion. A left pleural effusion is present. Aorta: The ascending aorta is not well visualized. The aortic arch is not well visualized. The aortic root is normal in size. Pulmonary Artery: The main pulmonary artery is not well visualized. Venous: The inferior vena cava appears normal in size. There is a greater than 50% respiratory change in the inferior vena cava dimension. Conclusions The left ventricular chamber size is decreased. Moderate concentric left ventricular hypertrophy is observed.with a sigmoid septum. The estimated ejection fraction is 60-65%. The left atrium is severely dilated. The right ventricle wall thickness is mildly increased. The right atrium is mild to moderately dilated. The aortic valve leaflets are mildly thickened. Mitral valve leaflet mobility is mildly restricted. There is mild mitral stenosis. There is mild to moderate mitral regurgitation. There is mild tricuspid regurgitation. There is evidence of borderline pulmonary hypertension. A left pleural effusion is present. Similar to 03/2015 except that the mild MS, mild /moderate MR, TR, and the pleural effusion are newly reported this time. Measurements Name Value Normal Range RVIDd (AP) 2D 3 cm (0.9 - 2.6) RVDdMajor (2D) 1.8 cm (2.2 - 4.4) RAd ISD 4CH 5.5 cm (3.4 - 4.9) RA (A4C)W 3.8 cm (2.9 - 4.6) IVSd (2D) 1.3 cm (0.6 - 1) LVPWd (2D) 1.3 cm (0.6 - 1) LVIDd (2D) 3.2 cm (3.6 - 5.4) LVIDs (2D) 2.1 cm - LV FS (2D) 36 % (25 - 45) Aortic Annulus 2 cm (1.4 - 2.6) Ao root diameter (2D) 2.2 cm (2.1 - 3.5) LA dimension (AP) 2D 4 cm (2.3 - 3.8) LAd ISD 4CH 6.2 cm (2.9 - 5.3) LA ISD 4CH W 5 cm (2.5 - 4.5) Name Value Normal Range LA ESV SP 4CH (A/L) 80.4 ml - LA ESV SP 2CH (A/L) 87.38 ml - LA ESV BP (A/L) 84.12 ml - LA ESV BP (A/L) index 56 ml/m2 - LA ESV SP 4CH (MOD) 75.36 ml - LA ESV SP 2CH (MOD) 83.85 ml - Name Value Normal Range MV E-wave Vmax 1.4 m/sec - MV deceleration time 200 msec - LV lateral e' Vmax 0.09 m/sec - LV E:e' lateral ratio 16 ratio - Name Value Normal Range AV Vmax 1.3 m/sec - AV VTI 22.7 cm - AV peak gradient 7 mmHg - AV mean gradient 3.8 mmHg - LVOT diameter 2 cm - LVOT Vmax 1 m/sec - LVOT VTI 18 cm - LVOT peak gradient 4 mmHg - LVOT mean gradient 1.9 mmHg - KAELA (continuity Vmax) 2.4 cm2 - KAELA (continuity VTI) 2.5 cm2 - Name Value Normal Range MV Vmax 1.4 m/sec - MV VTI 28 cm - MV peak gradient 8 mmHg - MV mean gradient 3.6 mmHg - MV PHT 80 msec - MVA (PHT) 2.8 cm2 - MVA (continuity VTI) 1.9 cm2 - Name Value Normal Range TR Vmax 2.7 m/sec - TR peak gradient 29 mmHg - RAP 8 mmHg - RVSP 35 mmHg - IVC diameter 2 cm -
[2017-05-31] MEDS: Amoxicillin/Clavulanate TAB* 500 MG PO SCH ×2 (11:14→19:57)
[2017-05-31] MEDS: Morphine ORAL.SOLN 10 mg* 2 MG/ML UDC 5 ml PO PRN ×3 (13:06→22:57)
[2017-05-31] MEDS: ALPRAZolam TAB* 0.25 MG PO PRN ×2 (13:12→22:58)
[2017-05-31] MEDS: Warfarin TAB(*) 4 MG PO SCH (17:14)
[2017-06-01] MEDS: Albuterol/Ipratropium NEB.SOL* Albuterol 2.5 MG/Ipratropium 0.5 MG 3 ML INH SCH ×4 (00:30→19:00)
[2017-06-01] MEDS: Heparin VIAL(*) 5000 UNITS/ML VIAL (FIVE THOUSAND) SUBCUT SCH ×3 (05:50→22:19)
[2017-06-01] MEDS: fentaNYL Patch Check Q Shift 1 NOTE SCH ×2 (06:54→19:24)
[2017-06-01] MEDS: Morphine ORAL.SOLN 10 mg* 2 MG/ML UDC 5 ml PO PRN ×3 (09:00→17:30)
[2017-06-01 09:16] LABS: INR 0.82 (0.77-1.02)
[2017-06-01 09:26] LABS: EGFR Non-African American 24.3 (>60)
[2017-06-01] MEDS: fentaNYL PATCH 12 MCG/HR TRANSDERM SCH (09:44)
[2017-06-01 09:47] LABS: Hematocrit 31 % (35-47); Hemoglobin 9.8 g/dl (12.0-16.0); Mean Corpuscular HGB Conc 32 g/dl (31-36); Mean Corpuscular Hemoglobin 30 pg (27-31); Mean Corpuscular Volume 95 fL (80-97); Mean Platelet Volume 8.2 um3 (7.4-10.4); Platelet Count 325 10^3/ul (150-450); Red Blood Count 3.26 10^6/ul (4.0-5.4); Red Cell Distribution Width 14 % (10.5-15); White Blood Count 10.9 10^3/ul (3.5-10.8)
[2017-06-01] MEDS: Furosemide IV* 10 MG/ML VIAL (40 MG) IV SCH (09:48)
[2017-06-01] MEDS: Gabapentin CAP(*) 100 MG PO SCH ×3 (09:48→20:55)
[2017-06-01] MEDS: Amoxicillin/Clavulanate TAB* 500 MG PO SCH ×2 (09:48→20:54)
[2017-06-01] MEDS: predniSONE TAB* 20 MG PO SCH (09:49)
[2017-06-01] MEDS: guaiFENesin ER TAB 600 MG PO SCH ×2 (09:49→20:54)
[2017-06-01 09:52] LABS: ABS Basophils 0 10^3/ul (0-0.2); ABS Eosinophils 0.1 10^3/ul (0-0.6); ABS Lymphocytes 1.2 10^3/ul (1.0-4.8); ABS Monocytes 0.3 10^3/ul (0-0.8); ABS Neutrophils 9.2 10^3/ul (1.5-7.7); ABS Nucleated RBC 0 10^3/ul
[2017-06-01 10:52] LABS: Monocytes % 2 % (0-7)
[2017-06-01] MEDS: ALPRAZolam TAB* 0.25 MG PO PRN (10:59)
--- NOTE | 2017-06-01 11:24 | RAD ---
Indication: Legs cold to touch. Comparison: No relevant prior exams available on the [facility] PACS for comparison. Technique: Ankle and brachial blood pressure measurement. Calculated ankle-brachial indices. REPORT: The right ankle brachial index is 1.01 within normal range. Mildly broadened biphasic posterior tibial and dorsalis pedis waveforms. Absence of significant reflected waves at the ankle pulse volume recording. The left ankle brachial index is 0.98 within normal range. Mildly broadened biphasic waveforms at the posterior tibial and dorsalis pedis arteries. Absence of reflected waves at the ankle pulse volume recording. IMPRESSION: Normal range bilateral ankle-brachial indices. Mild symmetric degradation of posterior tibial and dorsalis pedis waveforms and loss of reflected waves at the bilateral ankle pulse volume recordings. Consider potential mild bilateral inflow disease.
[2017-06-01] MEDS ORDERED: Sodium Polystyrene ORAL.SOL* 15 GM/60 ML BTL PO ONE (16:23)
--- NOTE | 2017-06-01 16:30 | PN ---
Subjective Date of Service: 06/01/17 Interval History: Intermittent tachypnea. Seems anxiety related and daughter (per RN) reports she gets ativan when it happens at home. 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 K 5.4 ANNELISE wnl Afib on telemetry was started on coumadin last night Afebrile. 2-3L NC. Family History: Unchanged from Admission Social History: Unchanged from Admission Past Medical History: Unchanged from Admission Objective Active Medications: Acetaminophen (Tylenol Tab*) 650 mg PO Q6H PRN PRN Reason: FEVER Last Admin: 05/27/17 08:20 Dose: 650 mg Hydrocodone Bitart/Acetaminophen ([place] 5-325 Tab*) 1 tab PO Q6H PRN PRN Reason: PAIN Last Admin: 05/31/17 22:58 Dose: 1 tab Albuterol (Ventolin 2.5 Mg/3 Ml Neb.Shahrzad*) 2.5 mg INH Q4H PRN PRN Reason: SOB/WHEEZING Last Admin: 05/26/17 03:43 Dose: 2.5 mg Albuterol/Ipratropium (Duoneb (Albuterol 2.5 Mg/Ipratropium 0.5 Mg)) 1 neb INH Q6H CORNEL Last Admin: 06/01/17 13:08 Dose: 1 neb Alprazolam (Xanax Tab*) 0.25 mg PO 0800,1400,2100 [facility] Amoxicillin/Clavulanate Potassium (Augmentin Tab*) 500 mg PO BID [facility] Last Admin: 06/01/17 09:48 Dose: 500 mg Fentanyl (Duragesic Patch 12 Mcg/Hr *) 12 mcg TRANSDERM Q72HR [facility] Last Admin: 06/01/17 09:44 Dose: 12 mcg Furosemide (Lasix Iv*) 40 mg IV DAILY [facility] Last Admin: 06/01/17 09:48 Dose: 40 mg Gabapentin (Neurontin Cap(*)) 100 mg PO BID [facility] Last Admin: 06/01/17 09:48 Dose: 100 mg Gabapentin (Neurontin Cap(*)) 200 mg PO BEDTIME [facility] Last Admin: 05/31/17 19:59 Dose: 200 mg Guaifenesin (Mucinex*) 600 mg PO BID [facility] Last Admin: 06/01/17 09:49 Dose: 600 mg Heparin Sodium (Porcine) (Heparin Vial(*)) 5,000 units SUBCUT Q8HR [facility] Last Admin: 06/01/17 14:57 Dose: 5,000 units Morphine Sulfate (Morphine Oral.Soln 10 Mg*) 2 mg PO Q2H PRN PRN Reason: work of breathing Last Admin: 06/01/17 12:19 Dose: 2 mg Nystatin (Nystatin Oint*) 1 applic TOPICAL TID PRN PRN Reason: RASH Last Admin: 05/30/17 21:17 Dose: 1 applic Pharmacy Profile Note (Fentanyl Patch Check Q Shift) 1 note N/A 0700,1900 [facility] Last Admin: 06/01/17 06:54 Dose: 1 note Prednisone (Deltasone Tab*) 20 mg PO DAILY [facility] Last Admin: 06/01/17 09:49 Dose: 20 mg Sodium Polystyrene Sulfonate (Kayexalate Oral.Shahrzad*) 15 gm PO ONCE ONE Stop: 06/01/17 16:24 Triamcinolone Acetonide (Triamcinolone 0.025% Oint *) 1 applic TOPICAL BID PRN PRN Reason: RASH Warfarin Sodium (Coumadin Tab(*)) 4 mg PO DAILY@1700 [facility] PRN Reason: Protocol Last Admin: 05/31/17 17:14 Dose: 4 mg Vital Signs - 8 hr 06/01/17 06/01/17 06/01/17 09:00 09:44 09:48 Temperature Pulse Rate Respiratory 34 24 24 Rate Blood Pressure (mmHg) O2 Sat by Pulse Oximetry 06/01/17 06/01/17 06/01/17 10:59 11:00 11:15 Temperature 98.0 F Pulse Rate 74 Respiratory 30 26 32 Rate Blood Pressure 144/90 (mmHg) O2 Sat by Pulse 95 Oximetry 06/01/17 06/01/17 06/01/17 11:34 11:36 12:19 Temperature Pulse Rate 85 Respiratory 34 28 Rate Blood Pressure (mmHg) O2 Sat by Pulse 100 Oximetry 06/01/17 06/01/17 06/01/17 13:11 14:16 14:50 Temperature Pulse Rate 87 Respiratory 18 22 22 Rate Blood Pressure (mmHg) O2 Sat by Pulse 95 Oximetry 06/01/17 15:18 Temperature 97.8 F Pulse Rate 118 Respiratory 20 Rate Blood Pressure 126/60 (mmHg) O2 Sat by Pulse 91 Oximetry Oxygen Devices in Use Now: Nasal Cannula Appearance: NAD. not tachypnic and no respiratory distress. Initially asleep. Eyes: No Scleral Icterus, PERRLA Ears/Nose/Mouth/Throat: NL Teeth, Lips, Gums, Mucous Membranes Moist Neck: NL Appearance and Movements; NL JVP Respiratory: Symmetrical Chest Expansion and Respiratory Effort, - - reduced bases. no wheezing or rhonchi. Cardiovascular: NL Sounds; No Murmurs; No JVD, - - irregularly irregular. Abdominal: NL Sounds; No Tenderness; No Distention, No Hepatosplenomegaly Extremities: - - cool extremities. 1+ pitting edema in b/l legs. Skin: - Neurological: Alert and Oriented x 3, NL Sensation, NL Muscle Strength and Tone Nutrition: Taking PO's Result Diagrams: 06/01/17 08:53 06/01/17 08:53 Additional Lab and Data: Laboratory Results - last 24 hr 05/31/17 06/01/17 06/01/17 21:42 08:53 08:53 WBC 10.9 H RBC 3.26 L Hgb 9.8 L Hct 31 L MCV 95 MCH 30 MCHC 32 RDW 14 Plt Count 325 MPV 8.2 Neut % (Auto) Not Reportable Lymph % (Auto) Not Reportable [place] % (Auto) Not Reportable Eos % (Auto) Not Reportable Baso % (Auto) Not Reportable Absolute Neuts (auto) 9.2 H Absolute Lymphs (auto) 1.2 Absolute Monos (auto) 0.3 Absolute Eos (auto) 0.1 Absolute Basos (auto) 0 Absolute Nucleated RBC 0 Immature Gran % 4 Neutrophils % 83 Band Neutrophils % 1 Lymphocytes % 11 L Monocytes % 2 Eosinophils % 0 Basophils % 0 Myelocytes % 3 H Nucleated RBC % Abs Neuts (Manual) 9.0 H Abs Lymphs (Manual) 1.2 Abs Monocytes (Manual) 0.2 Absolute Eos (Manual) 0 Abs Basophils (Manual) 0 Normal RBC Morphology Normal INR (Anticoag Therapy) 0.82 Sodium Potassium Chloride Carbon Dioxide Anion Gap BUN Creatinine Est GFR ( Amer) Est GFR (Non-Af Amer) BUN/Creatinine Ratio Glucose Calcium Magnesium Ur Random Creatinine 57.69 Ur Random Urea Nitrogn 325 06/01/17 08:53 WBC RBC Hgb Hct MCV MCH MCHC RDW Plt Count MPV Neut % (Auto) Lymph % (Auto) [place] % (Auto) Eos % (Auto) Baso % (Auto) Absolute Neuts (auto) Absolute Lymphs (auto) Absolute Monos (auto) Absolute Eos (auto) Absolute Basos (auto) Absolute Nucleated RBC Immature Gran % Neutrophils % Band Neutrophils % Lymphocytes % Monocytes % Eosinophils % Basophils % Myelocytes % Nucleated RBC % Abs Neuts (Manual) Abs Lymphs (Manual) Abs Monocytes (Manual) Absolute Eos (Manual) Abs Basophils (Manual) Normal RBC Morphology INR (Anticoag Therapy) Sodium 131 L Potassium 5.4 H Chloride 96 L Carbon Dioxide 31 Anion Gap 4 BUN 65 H Creatinine 1.95 H Est GFR ( Amer) 31.3 Est GFR (Non-Af Amer) 24.3 BUN/Creatinine Ratio 33.3 H Glucose 116 H Calcium 9.2 Magnesium 2.4 Ur Random Creatinine Ur Random Urea Nitrogn Microbiology and Other Data: Microbiology 05/25/17 21:00 Sputum Expectorated Gram Stain - Final 05/25/17 21:00 Sputum Expectorated Sputum Culture - Final Branhamella Catarrhalis Normal Bri 05/26/17 03:45 Urine Urine Culture - Final No Growth (<1,000 CFU/mL) Assess/Plan/Problems-Billing Assessment: 86 y.o female PMH diastolic chf, htn, ckd stage 3-4, hyperlipidemia, chronic hypoxic respiratory failure (2L), COPD p/w increased shortness of breath. Moraxella Catarrhalis Pneumonia and diastolic CHF. Required vapotherm in ICU during stay. Course complicated by new onset Afib (rate controlled) now on coumadin. - Patient Problems (1) Acute and chronic respiratory failure with hypoxia Current Visit: Yes Status: Acute Code(s): J96.21 - ACUTE AND CHRONIC RESPIRATORY FAILURE WITH HYPOXIA SNOMED Code(s): 45905049 Comment: Back to baseline of 2L 2/2 pna, copd, diastolic chf plan as below. (2) Afib Current Visit: Yes Status: Acute Code(s): I48.91 - UNSPECIFIED ATRIAL FIBRILLATION SNOMED Code(s): 57615970 Comment: New onset ~ Chadvasc2 score 5 ~ 6.7% risk of development of stroke ~ HasBled score of 1 low risk - Pt started on coumadin after discussion yesterday. Kidney function(CrCl ~18) would make NOAC risky. (3) Heart failure Current Visit: Yes Status: Acute Code(s): I50.9 - HEART FAILURE, UNSPECIFIED SNOMED Code(s): 33804225 Comment: lasix 40IV again today. Consider oral tomorrow. daily weights. not obtained yet. BNP had been rising when she was on 20 po daily in ICU ~ strict i/o's (4) Hypotension Current Visit: Yes Status: Acute Comment: hold Lisinopril given hypotention yest. add back as able. 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 Baseline ~1.4-1.7 FeUrea 18.1% consistent with prerenal (6) Anemia Current Visit: No Status: Acute Priority: Medium Onset Date: 11/09/13 Code(s): D64.9 - ANEMIA, UNSPECIFIED SNOMED Code(s): 235610028 Comment: Chronic normocytic anemia Hgb stable (7) RLL pneumonia Current Visit: No Status: Acute Priority: High Onset Date: 11/09/13 Code (s): J18.9 - PNEUMONIA, UNSPECIFIED ORGANISM SNOMED Code(s): 041046441 Comment: ~ Sputum Culture positive for Moraxella(Branhamella) Catarrhalis ~ s/p azithromycin x4 days total - this is day 7 of antibiotics. got vanc x1, 3 days zosyn, 3 days(overlaping) cefepime - continue augmentin today then stop ~ prednisone 20mg from 40mg yesterday. (8) Sepsis Current Visit: No Status: Acute Comment: resolved. had fever, tachycardia, tachypnia, source, leukocytosis. Secondary to pneumonia with positive sputum for Branhamella Catarrhalis (9) COPD (chronic obstructive pulmonary disease) Current Visit: No Status: Chronic Code(s): J44.9 - CHRONIC OBSTRUCTIVE PULMONARY DISEASE, UNSPECIFIED SNOMED Code(s): 14811308 Comment: ~Albuterol nebs as needed for shortness of breath ~ high flow weaned on NC at 2 liters ~ excerabation d/t pneumonia ~ wean prednisone no PFTS available here. adding spiriva, adding dulera. was on just prn inhalers at home. former smoker (10) HTN (hypertension) Current Visit: No Status: Chronic Priority: High Onset Date: 11/09/13 Code(s): I10 - ESSENTIAL (PRIMARY) HYPERTENSION SNOMED Code(s): 19058500 Comment: Patient was hypotensive in ICU so lisinopril stopped. (11) Restless legs syndrome (RLS) Current Visit: No Status: Chronic Priority: Medium Onset Date: 11/09/13 Comment: Continue gabapentin. (12) PVD (peripheral vascular disease) Current Visit: Yes Status: Acute Code(s): I73.9 - PERIPHERAL VASCULAR DISEASE, UNSPECIFIED SNOMED Code(s): 120624506 Comment: concern given chronic hip pains and e/o poor perfusion (very cool legs, poorly palpable pulses). ANNELISE was okay. Status and Disposition: inpatient.
[2017-06-01] MEDS: Warfarin TAB(*) 4 MG PO SCH (17:38)
[2017-06-01] MEDS ORDERED: Spiriva Inhaler DEVICE* 1 EACH DEVICE INH ONE (18:00)
[2017-06-01] MEDS: Tiotropium CAP.INH* CAP.INH/18 MCG (USE ORDER SET !) INH SCH (18:51)
[2017-06-01] MEDS: Mometasone/Formoter 200/5 MDI INH SCH (19:00)
[2017-06-01] MEDS: ALPRAZolam TAB* 0.25 MG PO SCH (19:30)
[2017-06-02] MEDS: Albuterol/Ipratropium NEB.SOL* Albuterol 2.5 MG/Ipratropium 0.5 MG 3 ML INH SCH ×4 (01:17→19:25)
[2017-06-02] MEDS: Morphine ORAL.SOLN 10 mg* 2 MG/ML UDC 5 ml PO PRN ×4 (01:37→17:56)
[2017-06-02] MEDS: Heparin VIAL(*) 5000 UNITS/ML VIAL (FIVE THOUSAND) SUBCUT SCH ×3 (05:41→22:08)
[2017-06-02 06:27] LABS: Hematocrit 30 % (35-47); Hemoglobin 9.6 g/dl (12.0-16.0); Mean Corpuscular HGB Conc 32 g/dl (31-36); Mean Corpuscular Hemoglobin 31 pg (27-31); Mean Corpuscular Volume 94 fL (80-97); Mean Platelet Volume 7.6 um3 (7.4-10.4); Platelet Count 294 10^3/ul (150-450); Red Blood Count 3.14 10^6/ul (4.0-5.4); Red Cell Distribution Width 14 % (10.5-15); White Blood Count 11.9 10^3/ul (3.5-10.8)
[2017-06-02 06:43] LABS: EGFR Non-African American 24.9 (>60)
[2017-06-02 06:44] LABS: INR 0.88 (0.77-1.02)
[2017-06-02] MEDS: fentaNYL Patch Check Q Shift 1 NOTE SCH ×2 (06:52→19:19)
[2017-06-02] MEDS: predniSONE TAB* 20 MG PO SCH (08:42)
[2017-06-02] MEDS: guaiFENesin ER TAB 600 MG PO SCH ×2 (08:42→22:08)
[2017-06-02] MEDS: Gabapentin CAP(*) 100 MG PO SCH ×3 (08:42→22:07)
[2017-06-02] MEDS: ALPRAZolam TAB* 0.25 MG PO SCH ×3 (08:42→22:07)
[2017-06-02] MEDS: Furosemide IV* 10 MG/ML VIAL (40 MG) IV SCH (08:43)
[2017-06-02] MEDS: Mometasone/Formoter 200/5 MDI INH SCH ×2 (08:47→19:27)
[2017-06-02] MEDS: Tiotropium CAP.INH* CAP.INH/18 MCG (USE ORDER SET !) INH SCH (08:47)
[2017-06-02 13:17] LABS: ABS Basophils 0 10^3/ul (0-0.2); ABS Eosinophils 0.2 10^3/ul (0-0.6); ABS Lymphocytes 1.2 10^3/ul (1.0-4.8); ABS Monocytes 0.7 10^3/ul (0-0.8); ABS Neutrophils 9.8 10^3/ul (1.5-7.7); ABS Nucleated RBC 0 10^3/ul; Eosinophil % 1.6 % (0-6); Lymphocyte % 9.9 % (25-47); Nucleated Red Blood Cells % 0.1
[2017-06-02] MEDS: Magnesium Hydroxide LIQ* 30 ML UDC PO PRN (15:55)
--- NOTE | 2017-06-02 16:24 | PN ---
Subjective Date of Service: 06/02/17 Interval History: Patient seen and examined. No complaints today, states she has intermittent cough, primarily unproductive. No chest pain, no SOB. OOB to chair, appears comfortable. Family History: Unchanged from Admission Social History: Unchanged from Admission Past Medical History: Unchanged from Admission Objective Active Medications: Acetaminophen (Tylenol Tab*) 650 mg PO Q6H PRN PRN Reason: FEVER Last Admin: 05/27/17 08:20 Dose: 650 mg Albuterol (Ventolin 2.5 Mg/3 Ml Neb.Shahrzad*) 2.5 mg INH Q4H PRN PRN Reason: SOB/WHEEZING Last Admin: 05/26/17 03:43 Dose: 2.5 mg Albuterol/Ipratropium (Duoneb (Albuterol 2.5 Mg/Ipratropium 0.5 Mg)) 1 neb INH Q6H CORNEL Last Admin: 06/02/17 12:49 Dose: 1 neb Alprazolam (Xanax Tab*) 0.25 mg PO 0800,1400,2100 [facility] Last Admin: 06/02/17 13:20 Dose: 0.25 mg Fentanyl (Duragesic Patch 12 Mcg/Hr *) 12 mcg TRANSDERM Q72HR [facility] Last Admin: 06/01/17 09:44 Dose: 12 mcg Furosemide (Lasix Iv*) 40 mg IV DAILY [facility] Last Admin: 06/02/17 08:43 Dose: 40 mg Gabapentin (Neurontin Cap(*)) 100 mg PO BID [facility] Last Admin: 06/02/17 08:42 Dose: 100 mg Gabapentin (Neurontin Cap(*)) 200 mg PO BEDTIME [facility] Last Admin: 06/01/17 20:55 Dose: 200 mg Guaifenesin (Mucinex*) 600 mg PO BID [facility] Last Admin: 06/02/17 08:42 Dose: 600 mg Heparin Sodium (Porcine) (Heparin Vial(*)) 5,000 units SUBCUT Q8HR [facility] Last Admin: 06/02/17 13:20 Dose: 5,000 units Magnesium Hydroxide (Milk Of Magnesia Liq*) 30 ml PO Q6H PRN PRN Reason: DYSPEPSIA Last Admin: 06/02/17 15:55 Dose: 30 ml Mometasone Furoate/Formoterol Fumar (Dulera 200/5 Mdi*) 2 puff INH BID [facility] Last Admin: 06/02/17 08:47 Dose: 2 puff Morphine Sulfate (Morphine Oral.Soln 10 Mg*) 2 mg PO Q2H PRN PRN Reason: work of breathing Last Admin: 06/02/17 14:52 Dose: 2 mg Nystatin (Nystatin Oint*) 1 applic TOPICAL TID PRN PRN Reason: RASH Last Admin: 05/30/17 21:17 Dose: 1 applic Pharmacy Profile Note (Fentanyl Patch Check Q Shift) 1 note N/A 0700,1900 [facility] Last Admin: 06/02/17 06:52 Dose: 1 note Prednisone (Deltasone Tab*) 20 mg PO DAILY [facility] Last Admin: 06/02/17 08:42 Dose: 20 mg Tiotropium [place] (Spiriva Cap.Inh*) 1 cap INH DAILY [facility] Last Admin: 06/02/17 08:47 Dose: 1 cap Triamcinolone Acetonide (Triamcinolone 0.025% Oint *) 1 applic TOPICAL BID PRN PRN Reason: RASH Warfarin Sodium (Coumadin Tab(*)) 4 mg PO DAILY@1700 [facility] PRN Reason: Protocol Last Admin: 06/01/17 17:38 Dose: 4 mg Vital Signs - 8 hr 06/02/17 06/02/17 06/02/17 08:42 08:51 11:14 Temperature 97.7 F Pulse Rate 87 86 Respiratory 20 24 20 Rate Blood Pressure 112/51 (mmHg) O2 Sat by Pulse 100 100 Oximetry 06/02/17 06/02/17 06/02/17 13:20 14:52 16:11 Temperature Pulse Rate Respiratory 18 22 20 Rate Blood Pressure (mmHg) O2 Sat by Pulse Oximetry Oxygen Devices in Use Now: Nasal Cannula Appearance: Alert, NAD Ears/Nose/Mouth/Throat: NL Teeth, Lips, Gums, Mucous Membranes Moist Neck: NL Appearance and Movements; NL JVP, Trachea Midline Respiratory: Symmetrical Chest Expansion and Respiratory Effort, - - diminished bases Cardiovascular: NL Sounds; No Murmurs; No JVD, RRR, No Edema Extremities: No Edema, - - cool skin, flaking poor pulses Neurological: Alert and Oriented x 3 Nutrition: Taking PO's Result Diagrams: 06/02/17 06:18 06/02/17 06:18 Additional Lab and Data: Laboratory Results - last 24 hr 05/31/17 06/01/17 06/01/17 21:42 08:53 08:53 WBC 10.9 H RBC 3.26 L Hgb 9.8 L Hct 31 L MCV 95 MCH 30 MCHC 32 RDW 14 Plt Count 325 MPV 8.2 Neut % (Auto) Not Reportable Lymph % (Auto) Not Reportable [place] % (Auto) Not Reportable Eos % (Auto) Not Reportable Baso % (Auto) Not Reportable Absolute Neuts (auto) 9.2 H Absolute Lymphs (auto) 1.2 Absolute Monos (auto) 0.3 Absolute Eos (auto) 0.1 Absolute Basos (auto) 0 Absolute Nucleated RBC 0 Immature Gran % 4 Neutrophils % 83 Band Neutrophils % 1 Lymphocytes % 11 L Monocytes % 2 Eosinophils % 0 Basophils % 0 Myelocytes % 3 H Nucleated RBC % Abs Neuts (Manual) 9.0 H Abs Lymphs (Manual) 1.2 Abs Monocytes (Manual) 0.2 Absolute Eos (Manual) 0 Abs Basophils (Manual) 0 Normal RBC Morphology Normal INR (Anticoag Therapy) 0.82 Sodium Potassium Chloride Carbon Dioxide Anion Gap BUN Creatinine Est GFR ( Amer) Est GFR (Non-Af Amer) BUN/Creatinine Ratio Glucose Calcium Magnesium Ur Random Creatinine 57.69 Ur Random Urea Nitrogn 325 06/01/17 08:53 WBC RBC Hgb Hct MCV MCH MCHC RDW Plt Count MPV Neut % (Auto) Lymph % (Auto) [place] % (Auto) Eos % (Auto) Baso % (Auto) Absolute Neuts (auto) Absolute Lymphs (auto) Absolute Monos (auto) Absolute Eos (auto) Absolute Basos (auto) Absolute Nucleated RBC Immature Gran % Neutrophils % Band Neutrophils % Lymphocytes % Monocytes % Eosinophils % Basophils % Myelocytes % Nucleated RBC % Abs Neuts (Manual) Abs Lymphs (Manual) Abs Monocytes (Manual) Absolute Eos (Manual) Abs Basophils (Manual) Normal RBC Morphology INR (Anticoag Therapy) Sodium 131 L Potassium 5.4 H Chloride 96 L Carbon Dioxide 31 Anion Gap 4 BUN 65 H Creatinine 1.95 H Est GFR ( Amer) 31.3 Est GFR (Non-Af Amer) 24.3 BUN/Creatinine Ratio 33.3 H Glucose 116 H Calcium 9.2 Magnesium 2.4 Ur Random Creatinine Ur Random Urea Nitrogn Microbiology and Other Data: Microbiology 05/25/17 21:00 Sputum Expectorated Gram Stain - Final 05/25/17 21:00 Sputum Expectorated Sputum Culture - Final Branhamella Catarrhalis Normal Bri 05/26/17 03:45 Urine Urine Culture - Final No Growth (<1,000 CFU/mL) Assess/Plan/Problems-Billing Assessment: This is an 86 year old female with PMHx of diastolic HF, HTN, 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 Required vapotherm in ICU during stay, now on NC. Course complicated by new onset Afib (rate controlled) now on coumadin. - Patient Problems (1) Acute and chronic respiratory failure with hypoxia Code(s): J96.21 - ACUTE AND CHRONIC RESPIRATORY FAILURE WITH HYPOXIA SNOMED Code(s): 64417091 Comment: - Multifactorial; PNA, COPD, DHF - O2 2L via NC (2) Afib Code(s): I48.91 - UNSPECIFIED ATRIAL FIBRILLATION SNOMED Code(s): 05034332 Comment: - New onset this admission - CHADsVASc2 = 5 - Coumadin initiated based on renal function, no NOAC - Monitor INR (3) Heart failure Code(s): I50.9 - HEART FAILURE, UNSPECIFIED SNOMED Code(s): 82975553 Comment: - Continue 40mg lasix IVP - Low sodium diet, I&Os, daily weights (4) PVD (peripheral vascular disease) Code(s): I73.9 - PERIPHERAL VASCULAR DISEASE, UNSPECIFIED SNOMED Code(s): 071878090 Comment: - At baseline, poor perfusion - ANNELISE's satisfactory (5) DVT prophylaxis Code(s): XMV3608 - SNOMED Code(s): 568418696 Comment: - Started on coumadin (6) Sepsis Comment: - Now resolved, 2/2 to positive sputum for Branhamella Catarrhalis Status and Disposition: Remain inpatient, re-assess tomorrow if euvolemic for dispo planning
[2017-06-02] MEDS: Warfarin TAB(*) 4 MG PO SCH (16:49)
[2017-06-03] MEDS: Albuterol/Ipratropium NEB.SOL* Albuterol 2.5 MG/Ipratropium 0.5 MG 3 ML INH SCH ×5 (00:55→19:08)
[2017-06-03] MEDS: Magnesium Hydroxide LIQ* 30 ML UDC PO PRN (02:46)
[2017-06-03] MEDS: Heparin VIAL(*) 5000 UNITS/ML VIAL (FIVE THOUSAND) SUBCUT SCH ×3 (06:02→22:33)
[2017-06-03 06:40] LABS: INR 1.06 (0.77-1.02)
[2017-06-03] MEDS: fentaNYL Patch Check Q Shift 1 NOTE SCH ×2 (07:11→19:16)
[2017-06-03] MEDS: Mometasone/Formoter 200/5 MDI INH SCH ×2 (07:38→19:09)
[2017-06-03] MEDS: Tiotropium CAP.INH* CAP.INH/18 MCG (USE ORDER SET !) INH SCH (07:56)
[2017-06-03] MEDS ORDERED: Sodium Polystyrene ORAL.SOL* 15 GM/60 ML BTL PO ONE ×2 (09:04→19:43)
[2017-06-03] MEDS: guaiFENesin ER TAB 600 MG PO SCH ×2 (09:30→20:06)
[2017-06-03] MEDS: Gabapentin CAP(*) 100 MG PO SCH ×3 (09:30→20:05)
[2017-06-03] MEDS: predniSONE TAB* 20 MG PO SCH (09:30)
[2017-06-03] MEDS: ALPRAZolam TAB* 0.25 MG PO SCH ×3 (09:30→20:06)
[2017-06-03] MEDS: Furosemide IV* 10 MG/ML VIAL (40 MG) IV SCH (09:30)
--- NOTE | 2017-06-03 17:41 | PN ---
Subjective Date of Service: 06/03/17 Interval History: Patient seen and examined. Seems to be tugging with mild tachypnea. Increased O2 for comfort. Denies chest pain. Discussed dispo planning, states she's too SOB to go home tomorrow. Explained that we we review this tomorrow then decide. No fever or chills, no n/v, has some anxiety. No further complaints. Family History: Unchanged from Admission Social History: Unchanged from Admission Past Medical History: Unchanged from Admission Objective Active Medications: Acetaminophen (Tylenol Tab*) 650 mg PO Q6H PRN PRN Reason: FEVER Last Admin: 05/27/17 08:20 Dose: 650 mg Albuterol (Ventolin 2.5 Mg/3 Ml Neb.Shahrzad*) 2.5 mg INH Q4H PRN PRN Reason: SOB/WHEEZING Last Admin: 05/26/17 03:43 Dose: 2.5 mg Albuterol/Ipratropium (Duoneb (Albuterol 2.5 Mg/Ipratropium 0.5 Mg)) 1 neb INH Q6H [facility] Last Admin: 06/03/17 14:42 Dose: 1 neb Alprazolam (Xanax Tab*) 0.25 mg PO 0800,1400,2100 [facility] Last Admin: 06/03/17 14:34 Dose: 0.25 mg Fentanyl (Duragesic Patch 12 Mcg/Hr *) 12 mcg TRANSDERM Q72HR [facility] Last Admin: 06/01/17 09:44 Dose: 12 mcg Furosemide (Lasix Iv*) 40 mg IV DAILY [facility] Last Admin: 06/03/17 09:30 Dose: 40 mg Gabapentin (Neurontin Cap(*)) 100 mg PO BID [facility] Last Admin: 06/03/17 09:30 Dose: 100 mg Gabapentin (Neurontin Cap(*)) 200 mg PO BEDTIME [facility] Last Admin: 06/02/17 22:07 Dose: 200 mg Guaifenesin (Mucinex*) 600 mg PO BID [facility] Last Admin: 06/03/17 09:30 Dose: 600 mg Heparin Sodium (Porcine) (Heparin Vial(*)) 5,000 units SUBCUT Q8HR [facility] Last Admin: 06/03/17 14:34 Dose: 5,000 units Magnesium Hydroxide (Milk Of Magnesia Liq*) 30 ml PO Q6H PRN PRN Reason: DYSPEPSIA Last Admin: 06/03/17 02:46 Dose: 30 ml Mometasone Furoate/Formoterol Fumar (Dulera 200/5 Mdi*) 2 puff INH BID [facility] Last Admin: 06/03/17 07:38 Dose: 2 puff Morphine Sulfate (Morphine Oral.Soln 10 Mg*) 2 mg PO Q2H PRN PRN Reason: work of breathing Last Admin: 06/02/17 17:56 Dose: 2 mg Nystatin (Nystatin Oint*) 1 applic TOPICAL TID PRN PRN Reason: RASH Last Admin: 05/30/17 21:17 Dose: 1 applic Pharmacy Profile Note (Fentanyl Patch Check Q Shift) 1 note N/A 0700,1900 [facility] Last Admin: 06/03/17 07:11 Dose: 1 note Prednisone (Deltasone Tab*) 20 mg PO DAILY [facility] Last Admin: 06/03/17 09:30 Dose: 20 mg Tiotropium [place] (Spiriva Cap.Inh*) 1 cap INH DAILY [facility] Last Admin: 06/03/17 07:56 Dose: 1 cap Triamcinolone Acetonide (Triamcinolone 0.025% Oint *) 1 applic TOPICAL BID PRN PRN Reason: RASH Warfarin Sodium (Coumadin Tab(*)) 4 mg PO DAILY@1700 [facility] PRN Reason: Protocol Last Admin: 06/02/17 16:49 Dose: 4 mg Vital Signs - 8 hr 06/03/17 06/03/17 06/03/17 11:15 11:43 14:13 Temperature 98.1 F 98.1 F Pulse Rate 85 85 Respiratory 24 24 20 Rate Blood Pressure 83/44 110/65 (mmHg) O2 Sat by Pulse 100 100 Oximetry 06/03/17 06/03/17 06/03/17 14:34 15:02 15:11 Temperature 98.1 F Pulse Rate 94 Respiratory 24 20 Rate Blood Pressure 100/42 (mmHg) O2 Sat by Pulse 95 100 Oximetry Oxygen Devices in Use Now: Nasal Cannula Appearance: Alert, mild distress Eyes: No Scleral Icterus, PERRLA Ears/Nose/Mouth/Throat: Mucous Membranes Moist Neck: NL Appearance and Movements; NL JVP, Trachea Midline Respiratory: - - tachypneic, some accessory muscle use, diminshed bases Cardiovascular: NL Sounds; No Murmurs; No JVD - irregular/afib, No Edema Abdominal: NL Sounds; No Tenderness; No Distention Extremities: No Edema - dry, flaky skin bilat LE Neurological: Alert and Oriented x 3 Nutrition: Taking PO's Result Diagrams: 06/02/17 06:18 06/03/17 06:10 Additional Lab and Data: Laboratory Results - last 24 hr 05/31/17 06/01/17 06/01/17 21:42 08:53 08:53 WBC 10.9 H RBC 3.26 L Hgb 9.8 L Hct 31 L MCV 95 MCH 30 MCHC 32 RDW 14 Plt Count 325 MPV 8.2 Neut % (Auto) Not Reportable Lymph % (Auto) Not Reportable [place] % (Auto) Not Reportable Eos % (Auto) Not Reportable Baso % (Auto) Not Reportable Absolute Neuts (auto) 9.2 H Absolute Lymphs (auto) 1.2 Absolute Monos (auto) 0.3 Absolute Eos (auto) 0.1 Absolute Basos (auto) 0 Absolute Nucleated RBC 0 Immature Gran % 4 Neutrophils % 83 Band Neutrophils % 1 Lymphocytes % 11 L Monocytes % 2 Eosinophils % 0 Basophils % 0 Myelocytes % 3 H Nucleated RBC % Abs Neuts (Manual) 9.0 H Abs Lymphs (Manual) 1.2 Abs Monocytes (Manual) 0.2 Absolute Eos (Manual) 0 Abs Basophils (Manual) 0 Normal RBC Morphology Normal INR (Anticoag Therapy) 0.82 Sodium Potassium Chloride Carbon Dioxide Anion Gap BUN Creatinine Est GFR ( Amer) Est GFR (Non-Af Amer) BUN/Creatinine Ratio Glucose Calcium Magnesium Ur Random Creatinine 57.69 Ur Random Urea Nitrogn 325 06/01/17 08:53 WBC RBC Hgb Hct MCV MCH MCHC RDW Plt Count MPV Neut % (Auto) Lymph % (Auto) [place] % (Auto) Eos % (Auto) Baso % (Auto) Absolute Neuts (auto) Absolute Lymphs (auto) Absolute Monos (auto) Absolute Eos (auto) Absolute Basos (auto) Absolute Nucleated RBC Immature Gran % Neutrophils % Band Neutrophils % Lymphocytes % Monocytes % Eosinophils % Basophils % Myelocytes % Nucleated RBC % Abs Neuts (Manual) Abs Lymphs (Manual) Abs Monocytes (Manual) Absolute Eos (Manual) Abs Basophils (Manual) Normal RBC Morphology INR (Anticoag Therapy) Sodium 131 L Potassium 5.4 H Chloride 96 L Carbon Dioxide 31 Anion Gap 4 BUN 65 H Creatinine 1.95 H Est GFR ( Amer) 31.3 Est GFR (Non-Af Amer) 24.3 BUN/Creatinine Ratio 33.3 H Glucose 116 H Calcium 9.2 Magnesium 2.4 Ur Random Creatinine Ur Random Urea Nitrogn Microbiology and Other Data: Microbiology 05/25/17 21:00 Sputum Expectorated Gram Stain - Final 05/25/17 21:00 Sputum Expectorated Sputum Culture - Final Branhamella Catarrhalis Normal Bri 05/26/17 03:45 Urine Urine Culture - Final No Growth (<1,000 CFU/mL) Assess/Plan/Problems-Billing Assessment: This is an 86 year old female with PMHx of diastolic HF, HTN, 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 Required vapotherm in ICU during stay, now on NC. Course complicated by new onset Afib (rate controlled) now on coumadin. - Patient Problems (1) Acute and chronic respiratory failure with hypoxia Code(s): J96.21 - ACUTE AND CHRONIC RESPIRATORY FAILURE WITH HYPOXIA SNOMED Code(s): 47382957 Comment: - Multifactorial; PNA, COPD, DHF - O2 variable on NC, titrate to comfort (2) Afib Code(s): I48.91 - UNSPECIFIED ATRIAL FIBRILLATION SNOMED Code(s): 39722407 Comment: - New onset this admission - CHADsVASc2 = 5 - Coumadin initiated based on renal function, no NOAC - Monitor INR, currently subtherapeutic, continue (3) Heart failure Code(s): I50.9 - HEART FAILURE, UNSPECIFIED SNOMED Code(s): 82762335 Comment: - Continue 40mg lasix IVP - Low sodium diet, I&Os, daily weights (4) PVD (peripheral vascular disease) Code(s): I73.9 - PERIPHERAL VASCULAR DISEASE, UNSPECIFIED SNOMED Code(s): 911447187 Comment: - At baseline, poor perfusion - ANNELISE's satisfactory - Supportive care (5) DVT prophylaxis Code(s): FCQ2101 - SNOMED Code(s): 886817438 Comment: - Started on coumadin, hope to DC heparin in AM when therapeutic (6) Sepsis Comment: - Now resolved, 2/2 to positive sputum for Branhamella Catarrhalis Status and Disposition: Remain inpatient, reassess discharge planning in AM
[2017-06-03] MEDS: Warfarin TAB(*) 4 MG PO SCH (17:50)
[2017-06-03] MEDS: Morphine ORAL.SOLN 10 mg* 2 MG/ML UDC 5 ml PO PRN (18:09)
[2017-06-04] MEDS: Albuterol/Ipratropium NEB.SOL* Albuterol 2.5 MG/Ipratropium 0.5 MG 3 ML INH SCH ×5 (00:50→17:56)
[2017-06-04] MEDS: Morphine ORAL.SOLN 10 mg* 2 MG/ML UDC 5 ml PO PRN (01:08)
[2017-06-04 06:09] LABS: INR 1.4 (0.77-1.02)
[2017-06-04] MEDS: Heparin VIAL(*) 5000 UNITS/ML VIAL (FIVE THOUSAND) SUBCUT SCH (06:46)
[2017-06-04] MEDS: fentaNYL Patch Check Q Shift 1 NOTE SCH ×2 (06:50→18:36)
[2017-06-04] MEDS: fentaNYL PATCH 12 MCG/HR TRANSDERM SCH (08:12)
[2017-06-04] MEDS: predniSONE TAB* 20 MG PO SCH (08:20)
[2017-06-04] MEDS: Gabapentin CAP(*) 100 MG PO SCH ×3 (08:20→21:08)
[2017-06-04] MEDS: guaiFENesin ER TAB 600 MG PO SCH ×2 (08:20→21:08)
[2017-06-04] MEDS: Furosemide IV* 10 MG/ML VIAL (40 MG) IV SCH (08:20)
[2017-06-04] MEDS: ALPRAZolam TAB* 0.25 MG PO SCH ×3 (08:21→21:08)
[2017-06-04] MEDS: Tiotropium CAP.INH* CAP.INH/18 MCG (USE ORDER SET !) INH SCH (08:48)
[2017-06-04] MEDS: Mometasone/Formoter 200/5 MDI INH SCH ×3 (08:49→20:51)
--- NOTE | 2017-06-04 16:43 | PN ---
Subjective Date of Service: 06/04/17 Interval History: Patient seen and examined. Tachycardic today, still with increased WOB and cough. States she is still weak and SOB. Denies chest pain or palpitations. States she has stress incontinence with coughing. Family History: Unchanged from Admission Social History: Unchanged from Admission Past Medical History: Unchanged from Admission Objective Active Medications: Acetaminophen (Tylenol Tab*) 650 mg PO Q6H PRN PRN Reason: FEVER Last Admin: 05/27/17 08:20 Dose: 650 mg Albuterol (Ventolin 2.5 Mg/3 Ml Neb.Shahrzad*) 2.5 mg INH Q4H PRN PRN Reason: SOB/WHEEZING Last Admin: 05/26/17 03:43 Dose: 2.5 mg Albuterol/Ipratropium (Duoneb (Albuterol 2.5 Mg/Ipratropium 0.5 Mg)) 1 neb INH Q6H [facility] Last Admin: 06/04/17 13:48 Dose: 1 neb Alprazolam (Xanax Tab*) 0.25 mg PO 0800,1400,2100 [facility] Last Admin: 06/04/17 14:49 Dose: 0.25 mg Fentanyl (Duragesic Patch 12 Mcg/Hr *) 12 mcg TRANSDERM Q72HR [facility] Last Admin: 06/04/17 08:12 Dose: 12 mcg Furosemide (Lasix Iv*) 40 mg IV DAILY [facility] Last Admin: 06/04/17 08:20 Dose: 40 mg Gabapentin (Neurontin Cap(*)) 100 mg PO BID [facility] Last Admin: 06/04/17 08:20 Dose: 100 mg Gabapentin (Neurontin Cap(*)) 200 mg PO BEDTIME [facility] Last Admin: 06/03/17 20:05 Dose: 200 mg Guaifenesin (Mucinex*) 600 mg PO BID [facility] Last Admin: 06/04/17 08:20 Dose: 600 mg Magnesium Hydroxide (Milk Of Magnesia Liq*) 30 ml PO Q6H PRN PRN Reason: DYSPEPSIA Last Admin: 06/03/17 02:46 Dose: 30 ml Mometasone Furoate/Formoterol Fumar (Dulera 200/5 Mdi*) 2 puff INH BID [facility] Last Admin: 06/04/17 08:49 Dose: 2 puff Nystatin (Nystatin Oint*) 1 applic TOPICAL TID PRN PRN Reason: RASH Last Admin: 05/30/17 21:17 Dose: 1 applic Pharmacy Profile Note (Fentanyl Patch Check Q Shift) 1 note N/A 0700,1900 [facility] Last Admin: 06/04/17 06:50 Dose: 1 note Prednisone (Deltasone Tab*) 20 mg PO DAILY [facility] Last Admin: 06/04/17 08:20 Dose: 20 mg Tiotropium [place] (Spiriva Cap.Inh*) 1 cap INH DAILY [facility] Last Admin: 06/04/17 08:48 Dose: 1 cap Triamcinolone Acetonide (Triamcinolone 0.025% Oint *) 1 applic TOPICAL BID PRN PRN Reason: RASH Warfarin Sodium (Coumadin Tab(*)) 4 mg PO DAILY@1700 [facility] PRN Reason: Protocol Last Admin: 06/03/17 17:50 Dose: 4 mg Vital Signs - 8 hr 06/04/17 06/04/17 06/04/17 08:49 11:10 11:13 Temperature 97.7 F 97.7 F Pulse Rate 68 90 90 Respiratory 24 24 24 Rate Blood Pressure 98/49 98/48 (mmHg) O2 Sat by Pulse 98 86 92 Oximetry 06/04/17 06/04/17 06/04/17 12:50 13:51 14:49 Temperature Pulse Rate 70 Respiratory 18 20 20 Rate Blood Pressure (mmHg) O2 Sat by Pulse 96 Oximetry 06/04/17 15:18 Temperature 97.2 F Pulse Rate 106 Respiratory 28 Rate Blood Pressure 138/74 (mmHg) O2 Sat by Pulse 98 Oximetry Oxygen Devices in Use Now: High Flow Nasal Cannula Appearance: Alert, NAD Eyes: PERRLA Ears/Nose/Mouth/Throat: Mucous Membranes Moist Neck: Trachea Midline Respiratory: Symmetrical Chest Expansion and Respiratory Effort, - - diminished with rhonchi, no wheeze Cardiovascular: NL Sounds; No Murmurs; No JVD - irregular on tele 90s-low 100s Skin: - - lower extremities at baseline Neurological: Alert and Oriented x 3 Nutrition: Taking PO's Result Diagrams: 06/02/17 06:18 06/04/17 05:27 Additional Lab and Data: Laboratory Results - last 24 hr 05/31/17 06/01/17 06/01/17 21:42 08:53 08:53 WBC 10.9 H RBC 3.26 L Hgb 9.8 L Hct 31 L MCV 95 MCH 30 MCHC 32 RDW 14 Plt Count 325 MPV 8.2 Neut % (Auto) Not Reportable Lymph % (Auto) Not Reportable [place] % (Auto) Not Reportable Eos % (Auto) Not Reportable Baso % (Auto) Not Reportable Absolute Neuts (auto) 9.2 H Absolute Lymphs (auto) 1.2 Absolute Monos (auto) 0.3 Absolute Eos (auto) 0.1 Absolute Basos (auto) 0 Absolute Nucleated RBC 0 Immature Gran % 4 Neutrophils % 83 Band Neutrophils % 1 Lymphocytes % 11 L Monocytes % 2 Eosinophils % 0 Basophils % 0 Myelocytes % 3 H Nucleated RBC % Abs Neuts (Manual) 9.0 H Abs Lymphs (Manual) 1.2 Abs Monocytes (Manual) 0.2 Absolute Eos (Manual) 0 Abs Basophils (Manual) 0 Normal RBC Morphology Normal INR (Anticoag Therapy) 0.82 Sodium Potassium Chloride Carbon Dioxide Anion Gap BUN Creatinine Est GFR ( Amer) Est GFR (Non-Af Amer) BUN/Creatinine Ratio Glucose Calcium Magnesium Ur Random Creatinine 57.69 Ur Random Urea Nitrogn 325 06/01/17 08:53 WBC RBC Hgb Hct MCV MCH MCHC RDW Plt Count MPV Neut % (Auto) Lymph % (Auto) [place] % (Auto) Eos % (Auto) Baso % (Auto) Absolute Neuts (auto) Absolute Lymphs (auto) Absolute Monos (auto) Absolute Eos (auto) Absolute Basos (auto) Absolute Nucleated RBC Immature Gran % Neutrophils % Band Neutrophils % Lymphocytes % Monocytes % Eosinophils % Basophils % Myelocytes % Nucleated RBC % Abs Neuts (Manual) Abs Lymphs (Manual) Abs Monocytes (Manual) Absolute Eos (Manual) Abs Basophils (Manual) Normal RBC Morphology INR (Anticoag Therapy) Sodium 131 L Potassium 5.4 H Chloride 96 L Carbon Dioxide 31 Anion Gap 4 BUN 65 H Creatinine 1.95 H Est GFR ( Amer) 31.3 Est GFR (Non-Af Amer) 24.3 BUN/Creatinine Ratio 33.3 H Glucose 116 H Calcium 9.2 Magnesium 2.4 Ur Random Creatinine Ur Random Urea Nitrogn Microbiology and Other Data: Microbiology 05/25/17 21:00 Sputum Expectorated Gram Stain - Final 05/25/17 21:00 Sputum Expectorated Sputum Culture - Final Branhamella Catarrhalis Normal Bri 05/26/17 03:45 Urine Urine Culture - Final No Growth (<1,000 CFU/mL) Assess/Plan/Problems-Billing Assessment: This is an 86 year old female with PMHx of diastolic HF, HTN, 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 Required vapotherm in ICU during stay, now on NC. Course complicated by new onset Afib (rate controlled) now on coumadin. - Patient Problems (1) Acute and chronic respiratory failure with hypoxia Code(s): J96.21 - ACUTE AND CHRONIC RESPIRATORY FAILURE WITH HYPOXIA SNOMED Code(s): 28759462 Comment: - Multifactorial; PNA, COPD, DHF - O2 variable on NC, titrate to comfort (2) Afib Code(s): I48.91 - UNSPECIFIED ATRIAL FIBRILLATION SNOMED Code(s): 64881421 Comment: - New onset this admission - CHADsVASc2 = 5 - Coumadin initiated based on renal function, no NOAC - Monitor INR, slowly rising to therapeutic range, DC SQ heparin (3) Heart failure Code(s): I50.9 - HEART FAILURE, UNSPECIFIED SNOMED Code(s): 31754864 Comment: - Continue 40mg lasix IVP - Low sodium diet, I&Os, daily weights (4) PVD (peripheral vascular disease) Code(s): I73.9 - PERIPHERAL VASCULAR DISEASE, UNSPECIFIED SNOMED Code(s): 125544469 Comment: - At baseline, poor perfusion - ANNELISE's satisfactory - Supportive care - Local skin and wound care (5) DVT prophylaxis Code(s): PNJ7711 - SNOMED Code(s): 782494869 Comment: - Started on coumadin, DC heparin today and continue to follow INR (6) Sepsis Comment: - Now resolved, 2/2 to positive sputum for Branhamella Catarrhalis Status and Disposition: Remain inpatient, will continually re-assess for dispo planning.
[2017-06-04] MEDS: Warfarin TAB(*) 4 MG PO SCH (17:06)
[2017-06-05] MEDS: Albuterol/Ipratropium NEB.SOL* Albuterol 2.5 MG/Ipratropium 0.5 MG 3 ML INH SCH ×4 (00:44→20:03)
[2017-06-05] MEDS: fentaNYL Patch Check Q Shift 1 NOTE SCH ×2 (06:57→19:42)
[2017-06-05] MEDS: Tiotropium CAP.INH* CAP.INH/18 MCG (USE ORDER SET !) INH SCH (06:59)
[2017-06-05] MEDS: Mometasone/Formoter 200/5 MDI INH SCH ×2 (06:59→20:03)
[2017-06-05] MEDS: Furosemide IV* 10 MG/ML VIAL (40 MG) IV SCH (09:12)
[2017-06-05] MEDS: Gabapentin CAP(*) 100 MG PO SCH ×3 (09:12→22:01)
[2017-06-05] MEDS: ALPRAZolam TAB* 0.25 MG PO SCH ×3 (09:13→22:00)
[2017-06-05] MEDS: guaiFENesin ER TAB 600 MG PO SCH ×2 (09:13→22:01)
[2017-06-05] MEDS: predniSONE TAB* 20 MG PO SCH (09:13)
[2017-06-05] MEDS ORDERED: Sodium Polystyrene ORAL.SOL* 15 GM/60 ML BTL PO ONE (15:01)
--- NOTE | 2017-06-05 15:22 | RAD ---
INDICATION: Shortness of breath. COMPARISON: Chest x-ray dated May 28, 2017 TECHNIQUE: Single AP portable view of the chest was obtained. FINDINGS: Image quality is compromised due to the relative inferiority of a portable chest x-ray. There is mild cardiomegaly. There is stable coarse calcification overlying the arch of the aorta. There has been interval development of densities obscuring the bilateral lung bases more severe on the right and the left. Visualized bones are normal for the patient's age. IMPRESSION: Chest x-ray findings are most consistent with cardiogenic pulmonary edema with interval development of bibasilar pleural effusions, larger on the right.
--- NOTE | 2017-06-05 15:49 | PN ---
Subjective Date of Service: 06/05/17 Interval History: Patient seen and examined. Remains SOB with increased WOB. Patient states she is very uncomfortable and does not feel like she's making progress. Continues to be tachycardic with any ambulation, no chest pain no fever or chills. Family History: Unchanged from Admission Social History: Unchanged from Admission Past Medical History: Unchanged from Admission Objective Active Medications: Acetaminophen (Tylenol Tab*) 650 mg PO Q6H PRN PRN Reason: FEVER Last Admin: 05/27/17 08:20 Dose: 650 mg Albuterol (Ventolin 2.5 Mg/3 Ml Neb.Shahrzad*) 2.5 mg INH Q4H PRN PRN Reason: SOB/WHEEZING Last Admin: 05/26/17 03:43 Dose: 2.5 mg Albuterol/Ipratropium (Duoneb (Albuterol 2.5 Mg/Ipratropium 0.5 Mg)) 1 neb INH Q6H [facility] Last Admin: 06/05/17 13:00 Dose: 1 neb Alprazolam (Xanax Tab*) 0.25 mg PO 0800,1400,2100 [facility] Last Admin: 06/05/17 14:04 Dose: 0.25 mg Furosemide (Lasix Iv*) 40 mg IV DAILY [facility] Last Admin: 06/05/17 09:12 Dose: 40 mg Gabapentin (Neurontin Cap(*)) 100 mg PO BID [facility] Last Admin: 06/05/17 09:12 Dose: 100 mg Gabapentin (Neurontin Cap(*)) 200 mg PO BEDTIME [facility] Last Admin: 06/04/17 21:08 Dose: 200 mg Guaifenesin (Mucinex*) 600 mg PO BID [facility] Last Admin: 06/05/17 09:13 Dose: 600 mg Magnesium Hydroxide (Milk Of Magnesia Liq*) 30 ml PO Q6H PRN PRN Reason: DYSPEPSIA Last Admin: 06/03/17 02:46 Dose: 30 ml Mometasone Furoate/Formoterol Fumar (Dulera 200/5 Mdi*) 2 puff INH BID [facility] Last Admin: 06/05/17 06:59 Dose: 2 puff Nystatin (Nystatin Oint*) 1 applic TOPICAL TID PRN PRN Reason: RASH Last Admin: 05/30/17 21:17 Dose: 1 applic Pharmacy Profile Note (Fentanyl Patch Check Q Shift) 1 note N/A 0700,1900 [facility] Last Admin: 06/05/17 06:57 Dose: 1 note Prednisone (Deltasone Tab*) 20 mg PO DAILY [facility] Last Admin: 06/05/17 09:13 Dose: 20 mg Tiotropium [place] (Spiriva Cap.Inh*) 1 cap INH DAILY [facility] Last Admin: 06/05/17 06:59 Dose: 1 cap Triamcinolone Acetonide (Triamcinolone 0.025% Oint *) 1 applic TOPICAL BID PRN PRN Reason: RASH Warfarin Sodium (Coumadin Tab(*)) 4 mg PO DAILY@1700 [facility] PRN Reason: Protocol Last Admin: 06/04/17 17:06 Dose: 4 mg Vital Signs - 8 hr 06/05/17 06/05/17 06/05/17 08:00 09:12 09:13 Temperature Pulse Rate Respiratory 20 22 22 Rate Blood Pressure (mmHg) O2 Sat by Pulse Oximetry 06/05/17 06/05/17 06/05/17 11:15 11:34 13:00 Temperature 97.7 F Pulse Rate 69 70 Respiratory 20 20 24 Rate Blood Pressure 113/47 (mmHg) O2 Sat by Pulse 97 98 Oximetry 06/05/17 14:04 Temperature Pulse Rate Respiratory 28 Rate Blood Pressure (mmHg) O2 Sat by Pulse Oximetry Oxygen Devices in Use Now: Nasal Cannula Appearance: Alert, mild distress Ears/Nose/Mouth/Throat: Clear Oropharnyx Neck: NL Appearance and Movements; NL JVP, Trachea Midline Respiratory: - - diminished throughout the lung [place], poor air exchange, no rhonchi or rales Cardiovascular: NL Sounds; No Murmurs; No JVD, No Edema, - - irregular Abdominal: NL Sounds; No Tenderness; No Distention Extremities: No Edema, - - legs with dry, scaling skin, at baseline, diminished pedal pulses Neurological: Alert and Oriented x 3, - - profoundly weak Nutrition: Taking PO's Result Diagrams: 06/02/17 06:18 06/05/17 05:42 Additional Lab and Data: Laboratory Results - last 24 hr 05/31/17 06/01/17 06/01/17 21:42 08:53 08:53 WBC 10.9 H RBC 3.26 L Hgb 9.8 L Hct 31 L MCV 95 MCH 30 MCHC 32 RDW 14 Plt Count 325 MPV 8.2 Neut % (Auto) Not Reportable Lymph % (Auto) Not Reportable [place] % (Auto) Not Reportable Eos % (Auto) Not Reportable Baso % (Auto) Not Reportable Absolute Neuts (auto) 9.2 H Absolute Lymphs (auto) 1.2 Absolute Monos (auto) 0.3 Absolute Eos (auto) 0.1 Absolute Basos (auto) 0 Absolute Nucleated RBC 0 Immature Gran % 4 Neutrophils % 83 Band Neutrophils % 1 Lymphocytes % 11 L Monocytes % 2 Eosinophils % 0 Basophils % 0 Myelocytes % 3 H Nucleated RBC % Abs Neuts (Manual) 9.0 H Abs Lymphs (Manual) 1.2 Abs Monocytes (Manual) 0.2 Absolute Eos (Manual) 0 Abs Basophils (Manual) 0 Normal RBC Morphology Normal INR (Anticoag Therapy) 0.82 Sodium Potassium Chloride Carbon Dioxide Anion Gap BUN Creatinine Est GFR ( Amer) Est GFR (Non-Af Amer) BUN/Creatinine Ratio Glucose Calcium Magnesium Ur Random Creatinine 57.69 Ur Random Urea Nitrogn 325 06/01/17 08:53 WBC RBC Hgb Hct MCV MCH MCHC RDW Plt Count MPV Neut % (Auto) Lymph % (Auto) [place] % (Auto) Eos % (Auto) Baso % (Auto) Absolute Neuts (auto) Absolute Lymphs (auto) Absolute Monos (auto) Absolute Eos (auto) Absolute Basos (auto) Absolute Nucleated RBC Immature Gran % Neutrophils % Band Neutrophils % Lymphocytes % Monocytes % Eosinophils % Basophils % Myelocytes % Nucleated RBC % Abs Neuts (Manual) Abs Lymphs (Manual) Abs Monocytes (Manual) Absolute Eos (Manual) Abs Basophils (Manual) Normal RBC Morphology INR (Anticoag Therapy) Sodium 131 L Potassium 5.4 H Chloride 96 L Carbon Dioxide 31 Anion Gap 4 BUN 65 H Creatinine 1.95 H Est GFR ( Amer) 31.3 Est GFR (Non-Af Amer) 24.3 BUN/Creatinine Ratio 33.3 H Glucose 116 H Calcium 9.2 Magnesium 2.4 Ur Random Creatinine Ur Random Urea Nitrogn Microbiology and Other Data: Microbiology 05/25/17 21:00 Sputum Expectorated Gram Stain - Final 05/25/17 21:00 Sputum Expectorated Sputum Culture - Final Branhamella Catarrhalis Normal [facility] 05/26/17 03:45 Urine Urine Culture - Final No Growth (<1,000 CFU/mL) Diagnostic Imaging: Patient Name: JOSE WARNER Medical Record#: [id number] Ordering Physician: Coco Zarate NP Acct.#: [id number] : 1930 Age: 86 Sex: F Location: [address] [place] [address] MEDICAL/TELEMETRY Exam Date: 06/05/171458 ADM Status: ADM IN Order Information: CHEST AP PORTABLE Accession Number: [id number] CPT: 09895 INDICATION: Shortness of breath. COMPARISON: Chest x-ray dated May 28, 2017 TECHNIQUE: Single AP portable view of the chest was obtained. FINDINGS: Image quality is compromised due to the relative inferiority of a portable chest x-ray. There is mild cardiomegaly. There is stable coarse calcification overlying the arch of the aorta. There has been interval development of densities obscuring the bilateral lung bases more severe on the right and the left. Visualized bones are normal for the patient's age. IMPRESSION: Chest x-ray findings are most consistent with cardiogenic pulmonary edema with interval development of bibasilar pleural effusions, larger on the right. 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 Required vapotherm in ICU during stay, now on NC. Course complicated by new onset Afib (rate controlled) now on coumadin, remains short of breath at rest. - Patient Problems (1) Acute and chronic respiratory failure with hypoxia Code(s): J96.21 - ACUTE AND CHRONIC RESPIRATORY FAILURE WITH HYPOXIA SNOMED Code(s): 33370513 Comment: - Multifactorial; PNA, COPD, DHF - O2 variable on NC, titrate to comfort - CXR as above, bilateral effusions with R>L - Persistent bouts of respiratory distress with tachypnea and related anxiety about being unable to breathe (2) Afib Code(s): I48.91 - UNSPECIFIED ATRIAL FIBRILLATION SNOMED Code(s): 66881537 Comment: - New onset this admission - CHADsVASc2 = 5 - Coumadin initiated based on renal function, no NOAC - INR=1.4, slowly rising to therapeutic range, DC SQ heparin (3) Heart failure Code(s): I50.9 - HEART FAILURE, UNSPECIFIED SNOMED Code(s): 79100752 Comment: - Continue 40mg lasix IVP - Low sodium diet, I&Os, daily weights - CXR still showing pulmonary edema (4) PVD (peripheral vascular disease) Code(s): I73.9 - PERIPHERAL VASCULAR DISEASE, UNSPECIFIED SNOMED Code(s): 133868515 Comment: - At baseline, poor perfusion - ANNELISE's satisfactory - Supportive care - Local skin and wound care (5) DVT prophylaxis Code(s): ULH2269 - SNOMED Code(s): 420816885 Comment: - Started on coumadin, DC heparin today and continue to follow INR (6) Sepsis Comment: - Now resolved, 2/2 to positive sputum for Branhamella Catarrhalis (7) Hyperkalemia, diminished renal excretion Code(s): E87.5 - HYPERKALEMIA SNOMED Code(s): 95770827 Comment: - Persistently high K levels - Kayexelate x 2 doses in the last 48 hours - Will give another dose of kayexelate today and place on renal (low potassium ) diet Status and Disposition: Given constellation of symptoms, increasing respiratory distress and poor renal function, concern that patient is not rebounding. If the patient continues to decline over the next few days, should strongly consider palliative care consultation if we cannot safely DC to home or rehab. Per record, daughter has not been amenable to palliative in the past.
[2017-06-05] MEDS: Warfarin TAB(*) 4 MG PO SCH (17:34)
[2017-06-06] MEDS: Albuterol/Ipratropium NEB.SOL* Albuterol 2.5 MG/Ipratropium 0.5 MG 3 ML INH SCH ×4 (01:08→19:29)
[2017-06-06 05:30] LABS: ABS Basophils 0 10^3/ul (0-0.2); ABS Eosinophils 0.1 10^3/ul (0-0.6); ABS Monocytes 0.7 10^3/ul (0-0.8); ABS Neutrophils 8.9 10^3/ul (1.5-7.7); ABS Nucleated RBC 0 10^3/ul; Eosinophil % 0.8 % (0-6); Hematocrit 26 % (35-47); Hemoglobin 8.6 g/dl (12.0-16.0); Lymphocyte % 9.5 % (25-47); Mean Corpuscular HGB Conc 33 g/dl (31-36); Mean Corpuscular Hemoglobin 31 pg (27-31); Mean Corpuscular Volume 94 fL (80-97); Mean Platelet Volume 7.4 um3 (7.4-10.4); Nucleated Red Blood Cells % 0; Platelet Count 300 10^3/ul (150-450); Red Blood Count 2.76 10^6/ul (4.0-5.4); Red Cell Distribution Width 14 % (10.5-15); White Blood Count 10.7 10^3/ul (3.5-10.8)
[2017-06-06 05:36] LABS: INR 1.63 (0.77-1.02)
[2017-06-06 05:44] LABS: EGFR Non-African American 26.7 (>60)
[2017-06-06] MEDS: fentaNYL Patch Check Q Shift 1 NOTE SCH ×2 (07:18→19:17)
[2017-06-06] MEDS: Mometasone/Formoter 200/5 MDI INH SCH ×2 (07:30→19:29)
[2017-06-06] MEDS: Tiotropium CAP.INH* CAP.INH/18 MCG (USE ORDER SET !) INH SCH (07:30)
[2017-06-06] MEDS: Furosemide IV* 10 MG/ML VIAL (40 MG) IV SCH (08:01)
[2017-06-06] MEDS: guaiFENesin ER TAB 600 MG PO SCH ×2 (08:01→20:01)
[2017-06-06] MEDS: predniSONE TAB* 20 MG PO SCH (08:01)
[2017-06-06] MEDS: ALPRAZolam TAB* 0.25 MG PO SCH ×3 (08:01→19:58)
[2017-06-06] MEDS: Gabapentin CAP(*) 100 MG PO SCH ×3 (08:02→20:00)
[2017-06-06] MEDS: Albuterol 2.5 MG/3 ML NEB.SOL* (0.083%) INH PRN (10:12)
--- NOTE | 2017-06-06 14:07 | PN ---
Subjective Date of Service: 06/06/17 Interval History: feels "about the same" today. she is sitting in the chair but hasn't felt up for walking further than the chair. she denies feeling short of breath, having a cough, chest pain, palpitations. Family History: Unchanged from Admission Social History: Unchanged from Admission Past Medical History: Unchanged from Admission Objective Active Medications: Acetaminophen (Tylenol Tab*) 650 mg PO Q6H PRN PRN Reason: FEVER Last Admin: 05/27/17 08:20 Dose: 650 mg Albuterol (Ventolin 2.5 Mg/3 Ml Neb.Shahrzad*) 2.5 mg INH Q4H PRN PRN Reason: SOB/WHEEZING Last Admin: 06/06/17 10:12 Dose: 2.5 mg Albuterol/Ipratropium (Duoneb (Albuterol 2.5 Mg/Ipratropium 0.5 Mg)) 1 neb INH Q6H [facility] Last Admin: 06/06/17 13:55 Dose: 1 neb Alprazolam (Xanax Tab*) 0.25 mg PO 0800,1400,2100 [facility] Last Admin: 06/06/17 13:19 Dose: 0.25 mg Furosemide (Lasix Iv*) 40 mg IV BID [facility] Gabapentin (Neurontin Cap(*)) 100 mg PO BID [facility] Last Admin: 06/06/17 08:02 Dose: 100 mg Gabapentin (Neurontin Cap(*)) 200 mg PO BEDTIME [facility] Last Admin: 06/05/17 22:01 Dose: 200 mg Guaifenesin (Mucinex*) 600 mg PO BID [facility] Last Admin: 06/06/17 08:01 Dose: 600 mg Magnesium Hydroxide (Milk Of Magnesia Liq*) 30 ml PO Q6H PRN PRN Reason: DYSPEPSIA Last Admin: 06/03/17 02:46 Dose: 30 ml Mometasone Furoate/Formoterol Fumar (Dulera 200/5 Mdi*) 2 puff INH BID [facility] Last Admin: 06/06/17 07:30 Dose: 2 puff Nystatin (Nystatin Oint*) 1 applic TOPICAL TID PRN PRN Reason: RASH Last Admin: 05/30/17 21:17 Dose: 1 applic Pharmacy Profile Note (Fentanyl Patch Check Q Shift) 1 note N/A 0700,1900 [facility] Last Admin: 06/06/17 07:18 Dose: 1 note Prednisone (Deltasone Tab*) 20 mg PO DAILY [facility] Last Admin: 06/06/17 08:01 Dose: 20 mg Tiotropium [place] (Spiriva Cap.Inh*) 1 cap INH DAILY [facility] Last Admin: 06/06/17 07:30 Dose: 1 cap Triamcinolone Acetonide (Triamcinolone 0.025% Oint *) 1 applic TOPICAL BID PRN PRN Reason: RASH Warfarin Sodium (Coumadin Tab(*)) 4 mg PO DAILY@1700 [facility] PRN Reason: Protocol Last Admin: 06/05/17 17:34 Dose: 4 mg Vital Signs - 8 hr 06/06/17 06/06/17 06/06/17 07:06 07:15 07:27 Temperature 97.4 F Pulse Rate 78 90 Respiratory 15 24 Rate Blood Pressure 145/59 (mmHg) O2 Sat by Pulse 100 92 Oximetry 06/06/17 06/06/17 06/06/17 08:01 08:02 10:05 Temperature Pulse Rate Respiratory 22 22 26 Rate Blood Pressure (mmHg) O2 Sat by Pulse 98 Oximetry 06/06/17 06/06/17 06/06/17 10:47 13:19 13:58 Temperature 98.0 F Pulse Rate 96 100 Respiratory 16 24 20 Rate Blood Pressure 107/67 (mmHg) O2 Sat by Pulse 96 Oximetry Oxygen Devices in Use Now: Nasal Cannula Appearance: frail, ill-appearing, with increased work of breathing. unable to speak in full sentences. Eyes: No Scleral Icterus Ears/Nose/Mouth/Throat: NL Teeth, Lips, Gums Neck: - - JVP at 10cm sitting upright Respiratory: - - kyphosis, decreased breath sounds b/l bases, scattered rhonchi b/l Cardiovascular: - - irregular, tachycardic Abdominal: NL Sounds; No Tenderness; No Distention Lymphatic: No Cervical Adenopathy Extremities: - - scaly skin b/l legs, no edema Neurological: Alert and Oriented x 3 Result Diagrams: 06/06/17 05:07 06/06/17 05:07 Additional Lab and Data: Laboratory Results - last 24 hr 05/31/17 06/01/17 06/01/17 21:42 08:53 08:53 WBC 10.9 H RBC 3.26 L Hgb 9.8 L Hct 31 L MCV 95 MCH 30 MCHC 32 RDW 14 Plt Count 325 MPV 8.2 Neut % (Auto) Not Reportable Lymph % (Auto) Not Reportable Winkler % (Auto) Not Reportable Eos % (Auto) Not Reportable Baso % (Auto) Not Reportable Absolute Neuts (auto) 9.2 H Absolute Lymphs (auto) 1.2 Absolute Monos (auto) 0.3 Absolute Eos (auto) 0.1 Absolute Basos (auto) 0 Absolute Nucleated RBC 0 Immature Gran % 4 Neutrophils % 83 Band Neutrophils % 1 Lymphocytes % 11 L Monocytes % 2 Eosinophils % 0 Basophils % 0 Myelocytes % 3 H Nucleated RBC % Abs Neuts (Manual) 9.0 H Abs Lymphs (Manual) 1.2 Abs Monocytes (Manual) 0.2 Absolute Eos (Manual) 0 Abs Basophils (Manual) 0 Normal RBC Morphology Normal INR (Anticoag Therapy) 0.82 Sodium Potassium Chloride Carbon Dioxide Anion Gap BUN Creatinine Est GFR ( Amer) Est GFR (Non-Af Amer) BUN/Creatinine Ratio Glucose Calcium Magnesium Ur Random Creatinine 57.69 Ur Random Urea Nitrogn 325 06/01/17 08:53 WBC RBC Hgb Hct MCV MCH MCHC RDW Plt Count MPV Neut % (Auto) Lymph % (Auto) Winkler % (Auto) Eos % (Auto) Baso % (Auto) Absolute Neuts (auto) Absolute Lymphs (auto) Absolute Monos (auto) Absolute Eos (auto) Absolute Basos (auto) Absolute Nucleated RBC Immature Gran % Neutrophils % Band Neutrophils % Lymphocytes % Monocytes % Eosinophils % Basophils % Myelocytes % Nucleated RBC % Abs Neuts (Manual) Abs Lymphs (Manual) Abs Monocytes (Manual) Absolute Eos (Manual) Abs Basophils (Manual) Normal RBC Morphology INR (Anticoag Therapy) Sodium 131 L Potassium 5.4 H Chloride 96 L Carbon Dioxide 31 Anion Gap 4 BUN 65 H Creatinine 1.95 H Est GFR ( Amer) 31.3 Est GFR (Non-Af Amer) 24.3 BUN/Creatinine Ratio 33.3 H Glucose 116 H Calcium 9.2 Magnesium 2.4 Ur Random Creatinine Ur Random Urea Nitrogn Microbiology and Other Data: Microbiology 05/25/17 21:00 Sputum Expectorated Gram Stain - Final 05/25/17 21:00 Sputum Expectorated Sputum Culture - Final Branhamella Catarrhalis Normal Bri 05/26/17 03:45 Urine Urine Culture - Final No Growth (<1,000 CFU/mL) Diagnostic Imaging: Patient Name: JOSE WARNER Medical Record#: [id number] Ordering Physician: Coco Zarate NP Acct.#: [id number] : 1930 Age: 86 Sex: F Location: [address] [place] [address] MEDICAL/TELEMETRY Exam Date: 06/05/171458 ADM Status: ADM IN Order Information: CHEST AP PORTABLE Accession Number: [id number] CPT: 83423 INDICATION: Shortness of breath. COMPARISON: Chest x-ray dated May 28, 2017 TECHNIQUE: Single AP portable view of the chest was obtained. FINDINGS: Image quality is compromised due to the relative inferiority of a portable chest x-ray. There is mild cardiomegaly. There is stable coarse calcification overlying the arch of the aorta. There has been interval development of densities obscuring the bilateral lung bases more severe on the right and the left. Visualized bones are normal for the patient's age. IMPRESSION: Chest x-ray findings are most consistent with cardiogenic pulmonary edema with interval development of bibasilar pleural effusions, larger on the right. 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 Required vapotherm in ICU during stay, now on NC. Course complicated by new onset Afib (rate controlled) now on coumadin, remains short of breath at rest. - Patient Problems (1) Acute and chronic respiratory failure with hypoxia Current Visit: Yes Status: Acute Code(s): J96.21 - ACUTE AND CHRONIC RESPIRATORY FAILURE WITH HYPOXIA SNOMED Code(s): 55405144 Comment: Now with b/l pleural effusions, which are also contributing in addition to pneumonia, copd at admission Increase diuresis today to BID She has increased work of breathing; RT reports that she is near baseline for work of breathing; some anxiety component (2) Afib Current Visit: Yes Status: Acute Code(s): I48.91 - UNSPECIFIED ATRIAL FIBRILLATION SNOMED Code(s): 02643408 Comment: New onset this admission CHADsVASc2 = 5 Coumadin initiated based on renal function, no NOAC INR=1.6 today (3) Heart failure Current Visit: Yes Status: Acute Code(s): I50.9 - HEART FAILURE, UNSPECIFIED SNOMED Code(s): 22640615 Comment: Increase to 40mg lasix IV BID today Fluid restriction Low sodium diet, I&Os, daily weights (4) PVD (peripheral vascular disease) Current Visit: Yes Status: Acute Code(s): I73.9 - PERIPHERAL VASCULAR DISEASE, UNSPECIFIED SNOMED Code(s): 894320714 Comment: ANNELISE's satisfactory Local skin and wound care (5) Acute on chronic kidney failure Current Visit: No Status: Acute Priority: Medium Code(s): N17.9 - ACUTE KIDNEY FAILURE, UNSPECIFIED; N18.9 - CHRONIC KIDNEY DISEASE, UNSPECIFIED SNOMED Code(s): 299085977 Comment: [employer]ING [employer] ELECTROSLAG 1.48 to 1.93 (1.8 today) after hypotensive episodes in ICU (in setting of Afib and congesion). Baseline ~1.4-1.7 FeUrea 18.1% (6) COPD (chronic obstructive pulmonary disease) Current Visit: No Status: Chronic Code(s): J44.9 - CHRONIC OBSTRUCTIVE PULMONARY DISEASE, UNSPECIFIED SNOMED Code(s): 25851575 Comment: Duoneb q6 round the clock [place] 3L O2 excerabation d/t pneumonia continue prednisone 20mg daily no PFTS available here. adding spiriva, adding dulera. was on just prn inhalers at home. former smoker Status and Disposition: Ongoing poor respiratory status; will attempt increased diuresis
[2017-06-06] MEDS: Acetaminophen TAB* 325 MG PO PRN (16:04)
[2017-06-06] MEDS ORDERED: Furosemide IV* 10 MG/ML VIAL (40 MG) IV ONE (16:29)
[2017-06-06] MEDS: Warfarin TAB(*) 4 MG PO SCH ×2 (16:40→16:47)
[2017-06-06] MEDS: Morphine ORAL CONCENTRATE* 5 MG/0.25 ML ORAL.SYRIN SL PRN (16:41)
--- NOTE | 2017-06-06 17:29 | PN ---
Hospitalist Progress Note Date of Service: 06/06/17 Discussed goals of care with Ms. Contreras. She would want to be intubated even if it meant a risk of not being able to be extubated. She does not want to talk about end of life care.
[2017-06-06] MEDS ORDERED: Furosemide IV* 10 MG/ML VIAL (40 MG) IV SCH (21:00)
[2017-06-07] MEDS: Albuterol/Ipratropium NEB.SOL* Albuterol 2.5 MG/Ipratropium 0.5 MG 3 ML INH SCH ×4 (00:17→19:31)
[2017-06-07] MEDS: Morphine ORAL CONCENTRATE* 5 MG/0.25 ML ORAL.SYRIN SL PRN ×3 (04:48→17:10)
[2017-06-07 05:47] LABS: ABS Basophils 0 10^3/ul (0-0.2); ABS Eosinophils 0.1 10^3/ul (0-0.6); ABS Lymphocytes 0.9 10^3/ul (1.0-4.8); ABS Monocytes 0.7 10^3/ul (0-0.8); ABS Neutrophils 8.4 10^3/ul (1.5-7.7); ABS Nucleated RBC 0 10^3/ul; Eosinophil % 1.3 % (0-6); Hematocrit 26 % (35-47); Hemoglobin 8.7 g/dl (12.0-16.0); Mean Corpuscular HGB Conc 33 g/dl (31-36); Mean Corpuscular Hemoglobin 31 pg (27-31); Mean Corpuscular Volume 94 fL (80-97); Mean Platelet Volume 7.3 um3 (7.4-10.4); Nucleated Red Blood Cells % 0; Platelet Count 306 10^3/ul (150-450); Red Blood Count 2.79 10^6/ul (4.0-5.4); Red Cell Distribution Width 14 % (10.5-15); White Blood Count 10.2 10^3/ul (3.5-10.8)
[2017-06-07 06:04] LABS: EGFR Non-African American 26.2 (>60)
[2017-06-07 06:10] LABS: INR 2.04 (0.77-1.02)
[2017-06-07] MEDS: fentaNYL Patch Check Q Shift 1 NOTE SCH (07:22)
[2017-06-07] MEDS: Mometasone/Formoter 200/5 MDI INH SCH ×2 (07:44→19:31)
[2017-06-07] MEDS: Tiotropium CAP.INH* CAP.INH/18 MCG (USE ORDER SET !) INH SCH (07:44)
[2017-06-07] MEDS: guaiFENesin ER TAB 600 MG PO SCH ×2 (08:23→22:50)
[2017-06-07] MEDS: Gabapentin CAP(*) 100 MG PO SCH ×3 (08:23→22:50)
[2017-06-07] MEDS: predniSONE TAB* 20 MG PO SCH (08:23)
[2017-06-07] MEDS: Furosemide IV* 10 MG/ML VIAL (40 MG) IV SCH ×3 (08:24→22:50)
[2017-06-07] MEDS: Acetaminophen TAB* 325 MG PO PRN (08:24)
[2017-06-07] MEDS: ALPRAZolam TAB* 0.25 MG PO SCH ×3 (08:24→22:54)
--- NOTE | 2017-06-07 13:10 | PN ---
Subjective Date of Service: 06/07/17 Interval History: no overnight events. feels like she is getting a little better today. anxiety is controlled. cough is improved, no pain. she reports good spirits, believes she is going to get better. Family History: Unchanged from Admission Social History: Unchanged from Admission Past Medical History: Unchanged from Admission Objective Active Medications: Acetaminophen (Tylenol Tab*) 650 mg PO Q6H PRN PRN Reason: FEVER Last Admin: 06/07/17 08:24 Dose: 650 mg Albuterol (Ventolin 2.5 Mg/3 Ml Neb.Shahrzad*) 2.5 mg INH Q4H PRN PRN Reason: SOB/WHEEZING Last Admin: 06/06/17 10:12 Dose: 2.5 mg Albuterol/Ipratropium (Duoneb (Albuterol 2.5 Mg/Ipratropium 0.5 Mg)) 1 neb INH Q6H [facility] Last Admin: 06/07/17 07:41 Dose: 1 neb Alprazolam (Xanax Tab*) 0.25 mg PO 0800,1400,2100 [facility] Last Admin: 06/07/17 12:46 Dose: 0.25 mg Alprazolam (Xanax Tab*) 0.25 mg PO BID PRN PRN Reason: ANXIETY Furosemide (Lasix Iv*) 40 mg IV BID [facility] Last Admin: 06/07/17 08:33 Dose: Not Given Gabapentin (Neurontin Cap(*)) 100 mg PO BID [facility] Last Admin: 06/07/17 08:23 Dose: 100 mg Gabapentin (Neurontin Cap(*)) 200 mg PO BEDTIME [facility] Last Admin: 06/06/17 20:00 Dose: 200 mg Guaifenesin (Mucinex*) 600 mg PO BID [facility] Last Admin: 06/07/17 08:23 Dose: 600 mg Magnesium Hydroxide (Milk Of Magnesia Liq*) 30 ml PO Q6H PRN PRN Reason: DYSPEPSIA Last Admin: 06/03/17 02:46 Dose: 30 ml Mometasone Furoate/Formoterol Fumar (Dulera 200/5 Mdi*) 2 puff INH BID [facility] Last Admin: 06/07/17 07:44 Dose: 2 puff Morphine Sulfate (Morphine Oral Concentrate*) 5 mg SL Q4H PRN PRN Reason: PAIN Last Admin: 06/07/17 12:46 Dose: 5 mg Nystatin (Nystatin Oint*) 1 applic TOPICAL TID PRN PRN Reason: RASH Last Admin: 05/30/17 21:17 Dose: 1 applic Pharmacy Profile Note (Fentanyl Patch Check Q Shift) 1 note N/A 0700,1900 [facility] Last Admin: 06/07/17 07:22 Dose: 1 note Prednisone (Deltasone Tab*) 20 mg PO DAILY [facility] Last Admin: 06/07/17 08:23 Dose: 20 mg Tiotropium [place] (Spiriva Cap.Inh*) 1 cap INH DAILY [facility] Last Admin: 06/07/17 07:44 Dose: 1 cap Triamcinolone Acetonide (Triamcinolone 0.025% Oint *) 1 applic TOPICAL BID PRN PRN Reason: RASH Warfarin Sodium (Coumadin Tab(*)) 4 mg PO DAILY@1700 [facility] PRN Reason: Protocol Last Admin: 06/06/17 16:47 Dose: 4 mg Vital Signs - 8 hr 06/07/17 06/07/17 06/07/17 07:25 07:30 07:44 Temperature Pulse Rate 104 Respiratory 24 24 Rate Blood Pressure (mmHg) O2 Sat by Pulse 91 Oximetry 06/07/17 06/07/17 06/07/17 07:56 08:23 08:24 Temperature 97.8 F Pulse Rate 107 Respiratory 24 24 24 Rate Blood Pressure 128/48 (mmHg) O2 Sat by Pulse 89 Oximetry 06/07/17 06/07/17 06/07/17 10:30 11:22 12:46 Temperature 97.4 F Pulse Rate 75 Respiratory 22 20 26 Rate Blood Pressure 101/49 (mmHg) O2 Sat by Pulse 100 Oximetry Oxygen Devices in Use Now: Nasal Cannula Appearance: sitting up in the chair, tachypneic, increased work of breathing, unable to speak in full sentences Eyes: No Scleral Icterus Ears/Nose/Mouth/Throat: NL Teeth, Lips, Gums Neck: NL Appearance and Movements; NL JVP, - - JVP ~14cm Abdominal: NL Sounds; No Tenderness; No Distention, No Hepatosplenomegaly Lymphatic: No Cervical Adenopathy Extremities: No Edema, - - thickened, scaly skin b/l legs Neurological: Alert and Oriented x 3 Result Diagrams: 06/07/17 05:28 06/07/17 05:28 Additional Lab and Data: Laboratory Results - last 24 hr 05/31/17 06/01/17 06/01/17 21:42 08:53 08:53 WBC 10.9 H RBC 3.26 L Hgb 9.8 L Hct 31 L MCV 95 MCH 30 MCHC 32 RDW 14 Plt Count 325 MPV 8.2 Neut % (Auto) Not Reportable Lymph % (Auto) Not Reportable Alexander % (Auto) Not Reportable Eos % (Auto) Not Reportable Baso % (Auto) Not Reportable Absolute Neuts (auto) 9.2 H Absolute Lymphs (auto) 1.2 Absolute Monos (auto) 0.3 Absolute Eos (auto) 0.1 Absolute Basos (auto) 0 Absolute Nucleated RBC 0 Immature Gran % 4 Neutrophils % 83 Band Neutrophils % 1 Lymphocytes % 11 L Monocytes % 2 Eosinophils % 0 Basophils % 0 Myelocytes % 3 H Nucleated RBC % Abs Neuts (Manual) 9.0 H Abs Lymphs (Manual) 1.2 Abs Monocytes (Manual) 0.2 Absolute Eos (Manual) 0 Abs Basophils (Manual) 0 Normal RBC Morphology Normal INR (Anticoag Therapy) 0.82 Sodium Potassium Chloride Carbon Dioxide Anion Gap BUN Creatinine Est GFR ( Amer) Est GFR (Non-Af Amer) BUN/Creatinine Ratio Glucose Calcium Magnesium Ur Random Creatinine 57.69 Ur Random Urea Nitrogn 325 06/01/17 08:53 WBC RBC Hgb Hct MCV MCH MCHC RDW Plt Count MPV Neut % (Auto) Lymph % (Auto) Alexander % (Auto) Eos % (Auto) Baso % (Auto) Absolute Neuts (auto) Absolute Lymphs (auto) Absolute Monos (auto) Absolute Eos (auto) Absolute Basos (auto) Absolute Nucleated RBC Immature Gran % Neutrophils % Band Neutrophils % Lymphocytes % Monocytes % Eosinophils % Basophils % Myelocytes % Nucleated RBC % Abs Neuts (Manual) Abs Lymphs (Manual) Abs Monocytes (Manual) Absolute Eos (Manual) Abs Basophils (Manual) Normal RBC Morphology INR (Anticoag Therapy) Sodium 131 L Potassium 5.4 H Chloride 96 L Carbon Dioxide 31 Anion Gap 4 BUN 65 H Creatinine 1.95 H Est GFR ( Amer) 31.3 Est GFR (Non-Af Amer) 24.3 BUN/Creatinine Ratio 33.3 H Glucose 116 H Calcium 9.2 Magnesium 2.4 Ur Random Creatinine Ur Random Urea Nitrogn Microbiology and Other Data: Microbiology 05/25/17 21:00 Sputum Expectorated Gram Stain - Final 05/25/17 21:00 Sputum Expectorated Sputum Culture - Final Branhamella Catarrhalis Normal Bri 05/26/17 03:45 Urine Urine Culture - Final No Growth (<1,000 CFU/mL) Diagnostic Imaging: Patient Name: JOSE WARNER Medical Record#: [id number] Ordering Physician: Coco Zarate NP Acct.#: [id number] : 1930 Age: 86 Sex: F Location: [address] [place] [address]/TELEMETRY Exam Date: 06/05/17 145 ADM Status: ADM IN Order Information: CHEST AP PORTABLE Accession Number: [id number] CPT: 36073 INDICATION: Shortness of breath. COMPARISON: Chest x-ray dated May 28, 2017 TECHNIQUE: Single AP portable view of the chest was obtained. FINDINGS: Image quality is compromised due to the relative inferiority of a portable chest x-ray. There is mild cardiomegaly. There is stable coarse calcification overlying the arch of the aorta. There has been interval development of densities obscuring the bilateral lung bases more severe on the right and the left. Visualized bones are normal for the patient's age. IMPRESSION: Chest x-ray findings are most consistent with cardiogenic pulmonary edema with interval development of bibasilar pleural effusions, larger on the right. 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 Required vapotherm in ICU during stay, now on NC. Course complicated by new onset Afib (rate controlled) now on coumadin, remains short of breath at rest. - Patient Problems (1) Acute and chronic respiratory failure with hypoxia Current Visit: Yes Status: Acute Code(s): J96.21 - ACUTE AND CHRONIC RESPIRATORY FAILURE WITH HYPOXIA SNOMED Code(s): 33543283 Comment: Now with b/l pleural effusions, which are also contributing in addition to pneumonia, copd at admission I increased lasix to BID yesterday (note that I/O are not accurate), but I believe she still needs more diuresis. She has increased work of breathing, is on her home O2 requirement (2-3L O2) I discussed intubation, goals of care with her yesterday--she wants to get better, is not ready to discuss end of life care, and wants to be intubated if needed, even with the risk that she would not be able to be extubated. Continue prednisone 20mg daily, anshu standing (2) Afib Current Visit: Yes Status: Acute Code(s): I48.91 - UNSPECIFIED ATRIAL FIBRILLATION SNOMED Code(s): 44391638 Comment: New onset this admission CHADsVASc2 = 5 INR therapeutic today (3) Heart failure Current Visit: Yes Status: Acute Code(s): I50.9 - HEART FAILURE, UNSPECIFIED SNOMED Code(s): 42539568 Comment: Lasix 40mg IV BID Fluid restriction Low sodium diet, I&Os, daily weights (4) PVD (peripheral vascular disease) Current Visit: Yes Status: Acute Code(s): I73.9 - PERIPHERAL VASCULAR DISEASE, UNSPECIFIED SNOMED Code(s): 842174652 Comment: ANNELISE's satisfactory Local skin and wound care (5) Acute on chronic kidney failure Current Visit: No Status: Acute Priority: Medium Code(s): N17.9 - ACUTE KIDNEY FAILURE, UNSPECIFIED; N18.9 - CHRONIC KIDNEY DISEASE, UNSPECIFIED SNOMED Code(s): 737148887 Comment: Was likely from congestion, now creat hovering around 1.8 Baseline ~1.4-1.7 FeUrea 18.1% (6) COPD (chronic obstructive pulmonary disease) Current Visit: No Status: Chronic Code(s): J44.9 - CHRONIC OBSTRUCTIVE PULMONARY DISEASE, UNSPECIFIED SNOMED Code(s): 97958827 Comment: Duoneb q6 round the clock [place] 3L O2 continue prednisone 20mg daily no PFTS available here. adding spiriva, adding dulera. was on just prn inhalers at home. former smoker Status and Disposition: Ongoing poor respiratory status; attempting increased diuresis.
[2017-06-07] MEDS: Warfarin TAB(*) 4 MG PO SCH (17:10)
[2017-06-07] MEDS: ALPRAZolam TAB* 0.25 MG PO PRN (18:18)
[2017-06-08] MEDS: Albuterol/Ipratropium NEB.SOL* Albuterol 2.5 MG/Ipratropium 0.5 MG 3 ML INH SCH ×4 (00:16→19:11)
[2017-06-08] MEDS: fentaNYL Patch Check Q Shift 1 NOTE SCH ×4 (01:38→19:30)
[2017-06-08] MEDS: fentaNYL PATCH 12 MCG/HR TRANSDERM SCH (01:39)
[2017-06-08 06:18] LABS: Hematocrit 26 % (35-47); Hemoglobin 8.3 g/dl (12.0-16.0); Mean Corpuscular HGB Conc 32 g/dl (31-36); Mean Corpuscular Hemoglobin 30 pg (27-31); Mean Corpuscular Volume 94 fL (80-97); Mean Platelet Volume 7.4 um3 (7.4-10.4); Platelet Count 306 10^3/ul (150-450); Red Blood Count 2.73 10^6/ul (4.0-5.4); Red Cell Distribution Width 14 % (10.5-15); White Blood Count 11.1 10^3/ul (3.5-10.8)
[2017-06-08 06:23] LABS: INR 2.5 (0.77-1.02)
[2017-06-08 06:35] LABS: EGFR Non-African American 27.2 (>60)
[2017-06-08] MEDS: Tiotropium CAP.INH* CAP.INH/18 MCG (USE ORDER SET !) INH SCH (07:51)
[2017-06-08] MEDS: Mometasone/Formoter 200/5 MDI INH SCH ×2 (07:52→19:11)
[2017-06-08] MEDS: Furosemide IV* 10 MG/ML VIAL (40 MG) IV SCH (09:44)
[2017-06-08] MEDS: guaiFENesin ER TAB 600 MG PO SCH ×2 (09:44→21:08)
[2017-06-08] MEDS: Gabapentin CAP(*) 100 MG PO SCH ×3 (09:45→21:08)
[2017-06-08] MEDS: predniSONE TAB* 20 MG PO SCH (09:46)
[2017-06-08] MEDS: ALPRAZolam TAB* 0.25 MG PO SCH ×3 (09:46→21:08)
[2017-06-08] MEDS: Albuterol 2.5 MG/3 ML NEB.SOL* (0.083%) INH PRN (13:07)
[2017-06-08] MEDS: Morphine ORAL CONCENTRATE* 5 MG/0.25 ML ORAL.SYRIN SL PRN ×2 (14:54→18:44)
[2017-06-08] MEDS: Warfarin TAB(*) 4 MG PO SCH (17:05)
[2017-06-08] MEDS ORDERED: Furosemide IV* 10 MG/ML VIAL (40 MG) IV ONE (17:41)
--- NOTE | 2017-06-08 17:58 | PN ---
Subjective Date of Service: 06/08/17 Interval History: She states her breathing is better today but agrees she gets SOB with minimal exertion. No new c/o. Family History: Unchanged from Admission Social History: Unchanged from Admission Past Medical History: Unchanged from Admission Objective Active Medications: Acetaminophen (Tylenol Tab*) 650 mg PO Q6H PRN PRN Reason: FEVER Last Admin: 06/07/17 08:24 Dose: 650 mg Albuterol (Ventolin 2.5 Mg/3 Ml Neb.Shahrzad*) 2.5 mg INH Q4H PRN PRN Reason: SOB/WHEEZING Last Admin: 06/08/17 13:07 Dose: 2.5 mg Albuterol/Ipratropium (Duoneb (Albuterol 2.5 Mg/Ipratropium 0.5 Mg)) 1 neb INH Q6H [facility] Last Admin: 06/08/17 13:16 Dose: Not Given Alprazolam (Xanax Tab*) 0.25 mg PO 0800,1400,2100 [facility] Last Admin: 06/08/17 14:24 Dose: 0.25 mg Alprazolam (Xanax Tab*) 0.25 mg PO BID PRN PRN Reason: ANXIETY Last Admin: 06/07/17 18:18 Dose: 0.25 mg Fentanyl (Duragesic Patch 12 Mcg/Hr *) 12 mcg TRANSDERM Q72H [facility] Last Admin: 06/08/17 01:39 Dose: 12 mcg Gabapentin (Neurontin Cap(*)) 100 mg PO BID [facility] Last Admin: 06/08/17 09:45 Dose: 100 mg Gabapentin (Neurontin Cap(*)) 200 mg PO BEDTIME [facility] Last Admin: 06/07/17 22:50 Dose: 200 mg Guaifenesin (Mucinex*) 600 mg PO BID [facility] Last Admin: 06/08/17 09:44 Dose: 600 mg Magnesium Hydroxide (Milk Of Magnesia Liq*) 30 ml PO Q6H PRN PRN Reason: DYSPEPSIA Last Admin: 06/03/17 02:46 Dose: 30 ml Mometasone Furoate/Formoterol Fumar (Dulera 200/5 Mdi*) 2 puff INH BID [facility] Last Admin: 06/08/17 07:52 Dose: 2 puff Morphine Sulfate (Morphine Oral Concentrate*) 5 mg SL Q4H PRN PRN Reason: PAIN Last Admin: 06/08/17 14:54 Dose: 5 mg Nystatin (Nystatin Oint*) 1 applic TOPICAL TID PRN PRN Reason: RASH Last Admin: 05/30/17 21:17 Dose: 1 applic Pharmacy Profile Note (Fentanyl Patch Check Q Shift) 1 note N/A 0700,1900 [facility] Last Admin: 06/08/17 07:25 Dose: Not Given Prednisone (Deltasone Tab*) 20 mg PO DAILY [facility] Last Admin: 06/08/17 09:46 Dose: 20 mg Tiotropium [place] (Spiriva Cap.Inh*) 1 cap INH DAILY [facility] Last Admin: 06/08/17 07:51 Dose: 1 cap Torsemide (Demadex*) 40 mg PO DAILY [facility] Triamcinolone Acetonide (Triamcinolone 0.025% Oint *) 1 applic TOPICAL BID PRN PRN Reason: RASH Warfarin Sodium (Coumadin Tab(*)) 4 mg PO DAILY@1700 [facility] PRN Reason: Protocol Last Admin: 06/08/17 17:05 Dose: 4 mg Vital Signs - 8 hr 06/08/17 06/08/17 06/08/17 11:16 11:57 11:58 Temperature 97.8 F Pulse Rate 84 Respiratory 16 18 18 Rate Blood Pressure 106/32 (mmHg) O2 Sat by Pulse 98 Oximetry 06/08/17 06/08/17 06/08/17 13:09 14:24 14:54 Temperature Pulse Rate 88 Respiratory 17 18 30 Rate Blood Pressure (mmHg) O2 Sat by Pulse 92 Oximetry 06/08/17 06/08/17 15:27 17:14 Temperature 98.4 F Pulse Rate 87 Respiratory 24 16 Rate Blood Pressure 104/43 (mmHg) O2 Sat by Pulse 99 Oximetry Oxygen Devices in Use Now: Nasal Cannula Appearance: Alert, in a chair. In good spirits. Looks comfortable. Eyes: No Scleral Icterus Neck: NL Appearance and Movements; NL JVP, No Thyroid Enlargement, Masses Respiratory: Symmetrical Chest Expansion and Respiratory Effort, Clear to Percussion, - - diminished BS BL. Kyphosis present. Cardiovascular: NL Sounds; No Murmurs; No JVD, No Edema, - - irreg Extremities: No Edema, No Clubbing, Cyanosis Skin: No Nodules or Sclerosis, - - lower legs dry, scaly, hyperpigmented Neurological: Alert and Oriented x 3, NL Sensation Result Diagrams: 06/08/17 05:49 06/08/17 05:49 Additional Lab and Data: Laboratory Results - last 24 hr 05/31/17 06/01/17 06/01/17 21:42 08:53 08:53 WBC 10.9 H RBC 3.26 L Hgb 9.8 L Hct 31 L MCV 95 MCH 30 MCHC 32 RDW 14 Plt Count 325 MPV 8.2 Neut % (Auto) Not Reportable Lymph % (Auto) Not Reportable [place] % (Auto) Not Reportable Eos % (Auto) Not Reportable Baso % (Auto) Not Reportable Absolute Neuts (auto) 9.2 H Absolute Lymphs (auto) 1.2 Absolute Monos (auto) 0.3 Absolute Eos (auto) 0.1 Absolute Basos (auto) 0 Absolute Nucleated RBC 0 Immature Gran % 4 Neutrophils % 83 Band Neutrophils % 1 Lymphocytes % 11 L Monocytes % 2 Eosinophils % 0 Basophils % 0 Myelocytes % 3 H Nucleated RBC % Abs Neuts (Manual) 9.0 H Abs Lymphs (Manual) 1.2 Abs Monocytes (Manual) 0.2 Absolute Eos (Manual) 0 Abs Basophils (Manual) 0 Normal RBC Morphology Normal INR (Anticoag Therapy) 0.82 Sodium Potassium Chloride Carbon Dioxide Anion Gap BUN Creatinine Est GFR ( Amer) Est GFR (Non-Af Amer) BUN/Creatinine Ratio Glucose Calcium Magnesium Ur Random Creatinine 57.69 Ur Random Urea Nitrogn 325 06/01/17 08:53 WBC RBC Hgb Hct MCV MCH MCHC RDW Plt Count MPV Neut % (Auto) Lymph % (Auto) [place] % (Auto) Eos % (Auto) Baso % (Auto) Absolute Neuts (auto) Absolute Lymphs (auto) Absolute Monos (auto) Absolute Eos (auto) Absolute Basos (auto) Absolute Nucleated RBC Immature Gran % Neutrophils % Band Neutrophils % Lymphocytes % Monocytes % Eosinophils % Basophils % Myelocytes % Nucleated RBC % Abs Neuts (Manual) Abs Lymphs (Manual) Abs Monocytes (Manual) Absolute Eos (Manual) Abs Basophils (Manual) Normal RBC Morphology INR (Anticoag Therapy) Sodium 131 L Potassium 5.4 H Chloride 96 L Carbon Dioxide 31 Anion Gap 4 BUN 65 H Creatinine 1.95 H Est GFR ( Amer) 31.3 Est GFR (Non-Af Amer) 24.3 BUN/Creatinine Ratio 33.3 H Glucose 116 H Calcium 9.2 Magnesium 2.4 Ur Random Creatinine Ur Random Urea Nitrogn Microbiology and Other Data: Microbiology 05/25/17 21:00 Sputum Expectorated Gram Stain - Final 05/25/17 21:00 Sputum Expectorated Sputum Culture - Final Branhamella Catarrhalis Normal Bri 05/26/17 03:45 Urine Urine Culture - Final No Growth (<1,000 CFU/mL) Diagnostic Imaging: Patient Name: JOSE WARNER Medical Record#: [id number] Ordering Physician: Coco Zarate [facility]CO Acct.#: [id number] : 1930 Age: 86 Sex: F Location: [address] [place] [address] MEDICAL/TELEMETRY Exam Date: 06/05/171458 ADM Status: ADM IN Order Information: CHEST AP PORTABLE Accession Number: [id number] CPT: 34050 INDICATION: Shortness of breath. COMPARISON: Chest x-ray dated May 28, 2017 TECHNIQUE: Single AP portable view of the chest was obtained. FINDINGS: Image quality is compromised due to the relative inferiority of a portable chest x-ray. There is mild cardiomegaly. There is stable coarse calcification overlying the arch of the aorta. There has been interval development of densities obscuring the bilateral lung bases more severe on the right and the left. Visualized bones are normal for the patient's age. IMPRESSION: Chest x-ray findings are most consistent with cardiogenic pulmonary edema with interval development of bibasilar pleural effusions, larger on the right. 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 Required vapotherm in ICU during stay, now on NC. Course complicated by new onset Afib (rate controlled) now on coumadin, remains short of breath at rest. - Patient Problems (1) Acute and chronic respiratory failure with hypoxia Current Visit: Yes Status: Acute Code(s): J96.21 - ACUTE AND CHRONIC RESPIRATORY FAILURE WITH HYPOXIA SNOMED Code(s): 03759759 Comment: Now with b/l pleural effusions, which are also contributing in addition to pneumonia, copd at admission Last dose of IV furosemide 06/08 in PM, start po torsemide 40 mg daily 06/09. She has increased work of breathing, is on her home O2 requirement (2-3L O2) Palliative care consult requested. Reduce prednisone to 10 mg daily start 06/09, duonebs standing. (2) Afib Current Visit: Yes Status: Acute Code(s): I48.91 - UNSPECIFIED ATRIAL FIBRILLATION SNOMED Code(s): 23255888 Comment: New onset this admission. In NSR on 06/08. CHADsVASc2 = 5 INR therapeutic 06/08. INR 06/09. (3) CKD (chronic kidney disease) Current Visit: No Status: Chronic Code(s): N18.9 - CHRONIC KIDNEY DISEASE, UNSPECIFIED SNOMED Code(s): 442931581 Comment: Acute on chronic kidney injury. Improved 06/08. BMP 06/09. (4) HTN (hypertension) Current Visit: No Status: Chronic Priority: High Onset Date: 11/09/13 Code(s): I10 - ESSENTIAL (PRIMARY) HYPERTENSION SNOMED Code(s): 61181455 Comment: Patient was hypotensive in ICU so lisinopril stopped. (5) COPD (chronic obstructive pulmonary disease) Current Visit: No Status: Chronic Code(s): J44.9 - CHRONIC OBSTRUCTIVE PULMONARY DISEASE, UNSPECIFIED SNOMED Code(s): 75514417 Comment: Duoneb q6 round the clock [place] 3L O2 Reduce prednisone to 10 mg daily start 06/09. adding spiriva, adding dulera. was on just prn inhalers at home. former smoker Status and Disposition: Ongoing poor respiratory status; attempting increased diuresis.
[2017-06-08] MEDS: ALPRAZolam TAB* 0.25 MG PO PRN (18:06)
[2017-06-09] MEDS: Morphine ORAL CONCENTRATE* 5 MG/0.25 ML ORAL.SYRIN SL PRN (00:36)
[2017-06-09] MEDS: Albuterol/Ipratropium NEB.SOL* Albuterol 2.5 MG/Ipratropium 0.5 MG 3 ML INH SCH ×5 (03:47→19:56)
[2017-06-09 05:50] LABS: INR 2.61 (0.77-1.02)
[2017-06-09] MEDS: fentaNYL Patch Check Q Shift 1 NOTE SCH ×2 (07:22→20:46)
[2017-06-09] MEDS: Torsemide TAB* 20 MG PO SCH (07:45)
[2017-06-09] MEDS: guaiFENesin ER TAB 600 MG PO SCH ×2 (07:45→20:38)
[2017-06-09] MEDS: Gabapentin CAP(*) 100 MG PO SCH ×3 (07:46→20:39)
[2017-06-09] MEDS: predniSONE TAB* 10 MG PO SCH (07:46)
[2017-06-09] MEDS: ALPRAZolam TAB* 0.25 MG PO SCH ×3 (07:46→20:38)
[2017-06-09] MEDS: Albuterol 2.5 MG/3 ML NEB.SOL* (0.083%) INH PRN (08:14)
[2017-06-09] MEDS: Tiotropium CAP.INH* CAP.INH/18 MCG (USE ORDER SET !) INH SCH (08:15)
[2017-06-09] MEDS: Mometasone/Formoter 200/5 MDI INH SCH ×2 (08:16→19:53)
[2017-06-09] MEDS ORDERED: Diltiazem TAB* 30 MG PO PRN (15:30)
--- NOTE | 2017-06-09 15:43 | PN ---
Subjective Date of Service: 06/09/17 Interval History: No subj change. Family History: Unchanged from Admission Social History: Unchanged from Admission Past Medical History: Unchanged from Admission Objective Active Medications: Acetaminophen (Tylenol Tab*) 650 mg PO Q6H PRN PRN Reason: FEVER Last Admin: 06/07/17 08:24 Dose: 650 mg Albuterol (Ventolin 2.5 Mg/3 Ml Neb.Shahrzad*) 2.5 mg INH Q4H PRN PRN Reason: SOB/WHEEZING Last Admin: 06/09/17 08:14 Dose: 2.5 mg Albuterol/Ipratropium (Duoneb (Albuterol 2.5 Mg/Ipratropium 0.5 Mg)) 1 neb INH Q6H [facility] Last Admin: 06/09/17 13:07 Dose: 1 neb Alprazolam (Xanax Tab*) 0.25 mg PO 0800,1400,2100 [facility] Last Admin: 06/09/17 13:33 Dose: 0.25 mg Alprazolam (Xanax Tab*) 0.25 mg PO BID PRN PRN Reason: ANXIETY Last Admin: 06/08/17 18:06 Dose: 0.25 mg Diltiazem HCl (Cardizem Tab*) 30 mg PO Q4H PRN PRN Reason: TACHYCARDIA Fentanyl (Duragesic Patch 12 Mcg/Hr *) 12 mcg TRANSDERM Q72H [facility] Last Admin: 06/08/17 01:39 Dose: 12 mcg Gabapentin (Neurontin Cap(*)) 100 mg PO BID [facility] Last Admin: 06/09/17 07:46 Dose: 100 mg Gabapentin (Neurontin Cap(*)) 200 mg PO BEDTIME [facility] Last Admin: 06/08/17 21:07 Dose: 200 mg Guaifenesin (Mucinex*) 600 mg PO BID [facility] Last Admin: 06/09/17 07:45 Dose: 600 mg Magnesium Hydroxide (Milk Of Magnesia Liq*) 30 ml PO Q6H PRN PRN Reason: DYSPEPSIA Last Admin: 06/03/17 02:46 Dose: 30 ml Mometasone Furoate/Formoterol Fumar (Dulera 200/5 Mdi*) 2 puff INH BID [facility] Last Admin: 06/09/17 08:16 Dose: 2 puff Morphine Sulfate (Morphine Oral Concentrate*) 5 mg SL Q2H PRN PRN Reason: PAIN Last Admin: 06/09/17 00:36 Dose: 5 mg Nystatin (Nystatin Oint*) 1 applic TOPICAL TID PRN PRN Reason: RASH Last Admin: 05/30/17 21:17 Dose: 1 applic Pharmacy Profile Note (Fentanyl Patch Check Q Shift) 1 note N/A 0700,1900 [facility] Last Admin: 06/09/17 07:22 Dose: 1 note Prednisone (Deltasone Tab*) 10 mg PO DAILY [facility] Last Admin: 06/09/17 07:46 Dose: 10 mg Tiotropium [place] (Spiriva Cap.Inh*) 1 cap INH DAILY [facility] Last Admin: 06/09/17 08:15 Dose: 1 cap Torsemide (Demadex*) 40 mg PO DAILY [facility] Last Admin: 06/09/17 07:45 Dose: 40 mg Triamcinolone Acetonide (Triamcinolone 0.025% Oint *) 1 applic TOPICAL BID PRN PRN Reason: RASH Warfarin Sodium (Coumadin Tab(*)) 4 mg PO DAILY@1700 [facility] PRN Reason: Protocol Last Admin: 06/08/17 17:05 Dose: 4 mg Vital Signs - 8 hr 06/09/17 06/09/17 06/09/17 07:46 08:00 08:16 Temperature 97.8 F Pulse Rate 88 Respiratory 16 15 15 Rate Blood Pressure 103/47 (mmHg) O2 Sat by Pulse 100 Oximetry 06/09/17 06/09/17 06/09/17 12:23 12:25 13:08 Temperature 98.3 F 98.3 F Pulse Rate 118 121 120 Respiratory 15 Rate Blood Pressure 98/59 96/46 (mmHg) O2 Sat by Pulse 100 98 Oximetry 06/09/17 06/09/17 13:33 15:06 Temperature 97.5 F Pulse Rate 122 Respiratory 28 16 Rate Blood Pressure 91/56 (mmHg) O2 Sat by Pulse 100 Oximetry Oxygen Devices in Use Now: Nasal Cannula, OxyMask Appearance: Alert, in recliner chair with her legs elevated. In fair spirits. Tachypneic but otherwise looks comfortable. Eyes: No Scleral Icterus Neck: NL Appearance and Movements; NL JVP, No Thyroid Enlargement, Masses Respiratory: Symmetrical Chest Expansion and Respiratory Effort, Clear to Percussion, - - diminished BS BL Cardiovascular: NL Sounds; No Murmurs; No JVD, RRR, No Edema, - Extremities: No Edema, No Clubbing, Cyanosis, - Skin: No Rash or Ulcers, No Nodules or Sclerosis, - Neurological: Alert and Oriented x 3, NL Sensation Result Diagrams: 06/08/17 05:49 06/08/17 05:49 Additional Lab and Data: Laboratory Results - last 24 hr 05/31/17 06/01/17 06/01/17 21:42 08:53 08:53 WBC 10.9 H RBC 3.26 L Hgb 9.8 L Hct 31 L MCV 95 MCH 30 MCHC 32 RDW 14 Plt Count 325 MPV 8.2 Neut % (Auto) Not Reportable Lymph % (Auto) Not Reportable [place] % (Auto) Not Reportable Eos % (Auto) Not Reportable Baso % (Auto) Not Reportable Absolute Neuts (auto) 9.2 H Absolute Lymphs (auto) 1.2 Absolute Monos (auto) 0.3 Absolute Eos (auto) 0.1 Absolute Basos (auto) 0 Absolute Nucleated RBC 0 Immature Gran % 4 Neutrophils % 83 Band Neutrophils % 1 Lymphocytes % 11 L Monocytes % 2 Eosinophils % 0 Basophils % 0 Myelocytes % 3 H Nucleated RBC % Abs Neuts (Manual) 9.0 H Abs Lymphs (Manual) 1.2 Abs Monocytes (Manual) 0.2 Absolute Eos (Manual) 0 Abs Basophils (Manual) 0 Normal RBC Morphology Normal INR (Anticoag Therapy) 0.82 Sodium Potassium Chloride Carbon Dioxide Anion Gap BUN Creatinine Est GFR ( Amer) Est GFR (Non-Af Amer) BUN/Creatinine Ratio Glucose Calcium Magnesium Ur Random Creatinine 57.69 Ur Random Urea Nitrogn 325 06/01/17 08:53 WBC RBC Hgb Hct MCV MCH MCHC RDW Plt Count MPV Neut % (Auto) Lymph % (Auto) [place] % (Auto) Eos % (Auto) Baso % (Auto) Absolute Neuts (auto) Absolute Lymphs (auto) Absolute Monos (auto) Absolute Eos (auto) Absolute Basos (auto) Absolute Nucleated RBC Immature Gran % Neutrophils % Band Neutrophils % Lymphocytes % Monocytes % Eosinophils % Basophils % Myelocytes % Nucleated RBC % Abs Neuts (Manual) Abs Lymphs (Manual) Abs Monocytes (Manual) Absolute Eos (Manual) Abs Basophils (Manual) Normal RBC Morphology INR (Anticoag Therapy) Sodium 131 L Potassium 5.4 H Chloride 96 L Carbon Dioxide 31 Anion Gap 4 BUN 65 H Creatinine 1.95 H Est GFR ( Amer) 31.3 Est GFR (Non-Af Amer) 24.3 BUN/Creatinine Ratio 33.3 H Glucose 116 H Calcium 9.2 Magnesium 2.4 Ur Random Creatinine Ur Random Urea Nitrogn Microbiology and Other Data: Microbiology 05/25/17 21:00 Sputum Expectorated Gram Stain - Final 05/25/17 21:00 Sputum Expectorated Sputum Culture - Final Branhamella Catarrhalis Normal Bri 05/26/17 03:45 Urine Urine Culture - Final No Growth (<1,000 CFU/mL) Diagnostic Imaging: Patient Name: JOSE WARNER Medical Record#: [id number] Ordering Physician: Coco Zarate NP Acct.#: [id number] : 1930 Age: 86 Sex: F Location: [address] [place] [address] MEDICAL/TELEMETRY Exam Date: 06/05/171458 ADM Status: ADM IN Order Information: CHEST AP PORTABLE Accession Number: [id number] CPT: 24643 INDICATION: Shortness of breath. COMPARISON: Chest x-ray dated May 28, 2017 TECHNIQUE: Single AP portable view of the chest was obtained. FINDINGS: Image quality is compromised due to the relative inferiority of a portable chest x-ray. There is mild cardiomegaly. There is stable coarse calcification overlying the arch of the aorta. There has been interval development of densities obscuring the bilateral lung bases more severe on the right and the left. Visualized bones are normal for the patient's age. IMPRESSION: Chest x-ray findings are most consistent with cardiogenic pulmonary edema with interval development of bibasilar pleural effusions, larger on the right. 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 Required vapotherm in ICU during stay, now on NC. Course complicated by new onset Afib (rate controlled) now on coumadin, remains short of breath at rest. - Patient Problems (1) Acute and chronic respiratory failure with hypoxia Current Visit: Yes Status: Acute Code(s): J96.21 - ACUTE AND CHRONIC RESPIRATORY FAILURE WITH HYPOXIA SNOMED Code(s): 65849706 Comment: Now with b/l pleural effusions, which are also contributing in addition to pneumonia, copd at admission Last dose of IV furosemide 06/08 in PM, started po torsemide 40 mg daily 06/09. She has increased work of breathing, is on her home O2 requirement (2-3L O2) PT was not interested in palliative care. Reduced prednisone to 10 mg daily starting 06/09, anshu standing. (2) Afib Current Visit: Yes Status: Acute Code(s): I48.91 - UNSPECIFIED ATRIAL FIBRILLATION SNOMED Code(s): 85367282 Comment: New onset this admission. In NSR on 06/08. CHADsVASc2 = 5 INR therapeutic 06/08. INR 06/10. (3) CKD (chronic kidney disease) Current Visit: No Status: Chronic Code(s): N18.9 - CHRONIC KIDNEY DISEASE, UNSPECIFIED SNOMED Code(s): 671776006 Comment: Acute on chronic kidney injury. Improved 06/08. BMP 06/10. (4) HTN (hypertension) Current Visit: No Status: Chronic Priority: High Onset Date: 11/09/13 Code(s): I10 - ESSENTIAL (PRIMARY) HYPERTENSION SNOMED Code(s): 23283188 Comment: Patient was hypotensive in ICU so lisinopril stopped. (5) COPD (chronic obstructive pulmonary disease) Current Visit: No Status: Chronic Code(s): J44.9 - CHRONIC OBSTRUCTIVE PULMONARY DISEASE, UNSPECIFIED SNOMED Code(s): 07151299 Comment: Duoneb q6 round the clock [place] 3L O2 Reduced prednisone to 10 mg daily starting 06/09. adding spiriva, adding dulera. was on just prn inhalers at home. former smoker Status and Disposition: Ongoing poor respiratory status; attempting increased diuresis.
[2017-06-09] MEDS: Warfarin TAB(*) 4 MG PO SCH (16:08)
[2017-06-09] MEDS: Metoprolol Tartrate TAB* 25 MG PO SCH (20:38)
[2017-06-09] MEDS: Magnesium Hydroxide LIQ* 30 ML UDC PO PRN (20:39)
[2017-06-10] MEDS: Albuterol/Ipratropium NEB.SOL* Albuterol 2.5 MG/Ipratropium 0.5 MG 3 ML INH SCH ×2 (01:12→07:35)
[2017-06-10 05:26] LABS: INR 2.68 (0.77-1.02)
[2017-06-10 05:37] LABS: EGFR Non-African American 26.7 (>60)
[2017-06-10] MEDS: fentaNYL Patch Check Q Shift 1 NOTE SCH ×2 (07:26→19:25)
[2017-06-10] MEDS: Tiotropium CAP.INH* CAP.INH/18 MCG (USE ORDER SET !) INH SCH (07:30)
[2017-06-10] MEDS: Mometasone/Formoter 200/5 MDI INH SCH ×2 (07:33→19:09)
[2017-06-10] MEDS: Torsemide TAB* 20 MG PO SCH (08:17)
[2017-06-10] MEDS: ALPRAZolam TAB* 0.25 MG PO SCH ×3 (08:17→21:26)
[2017-06-10] MEDS: Metoprolol Tartrate TAB* 25 MG PO SCH ×2 (08:18→21:26)
[2017-06-10] MEDS: Gabapentin CAP(*) 100 MG PO SCH ×3 (08:18→21:26)
[2017-06-10] MEDS: guaiFENesin ER TAB 600 MG PO SCH ×2 (08:19→21:26)
[2017-06-10] MEDS: predniSONE TAB* 10 MG PO SCH (08:20)
--- NOTE | 2017-06-10 09:55 | PN ---
Progress Note - Progress Note Date of Service: 06/10/17 Note: Time spent on discharge 55 minutes.
[2017-06-10] MEDS: Morphine ORAL CONCENTRATE* 5 MG/0.25 ML ORAL.SYRIN SL PRN ×2 (10:38→16:43)
[2017-06-10] MEDS ORDERED: Warfarin TAB(*) 3 MG PO SCH (17:00)
[2017-06-10] MEDS: ALPRAZolam TAB* 0.25 MG PO PRN (18:03)
--- NOTE | 2017-06-10 20:47 | PN ---
"Progress Note - Progress Note Date of Service: 06/10/17 Note: Search Terms: cary contreras, 1930 Search Date: 06/10/2017 08:46:02 PM The Drug Utilization Report below displays all of the controlled substance prescriptions, if any, that your patient has filled in the last twelve months. The information displayed on this report is compiled from pharmacy submissions to the Department, and accurately reflects the information as submitted by the pharmacies. This report was requested by: Reagan Trivedi | Reference #: [id number] Others' Prescriptions Patient Name: Cary Contreras Date: 1930 Address: [address] [place] [address] Sex: Female Rx Written Rx Dispensed Drug Quantity Days Supply Prescriber Name 05/04/2017 06/01/2017 alprazolam 0.25 mg tablet 90 23 Dorene Cook MD 05/25/2017 05/25/2017 fentanyl 12 mcg/hr patch 10 30 Ayla Blackmon 05/25/2017 05/25/2017 hydrocodone-acetaminophen 10-325 mg tablet 120 30 BlackmonAyla melendez 05/04/2017 05/04/2017 alprazolam 0.25 mg tablet 90 23 Dorene Cook MD 04/03/2017 04/10/2017 alprazolam 0.25 mg tablet 90 23 Dorene Cook MD 04/02/2017 04/06/2017 hydrocodone-acetaminophen 10-325 mg tablet 120 30 Ayla Blackmon 04/02/2017 04/06/2017 fentanyl 12 mcg/hr patch 10 30 BlackmonAyla 03/16/2017 03/17/2017 alprazolam 0.25 mg tablet 90 23 Dorene Cook MD 03/04/2017 03/06/2017 fentanyl 12 mcg/hr patch 10 30 BlackmonAyla 03/04/2017 03/06/2017 hydrocodone-acetaminophen 10-325 mg tablet 120 30 Ayla Blackmon 02/20/2017 02/22/2017 alprazolam 0.25 mg tablet 90 23 Dorene Cook MD 01/28/2017 02/05/2017 alprazolam 0.25 mg tablet 60 30 Dorene Cook MD 01/26/2017 01/27/2017 fentanyl 12 mcg/hr patch 10 30 Blackmon, Ayla 01/26/2017 01/27/2017 hydrocodone-acetaminophen 10-325 mg tablet 120 30 Blackmon, Ayla 12/25/2016 12/26/2016 fentanyl 12 mcg/hr patch 10 30 Blackmon, Ayla 12/25/2016 12/26/2016 hydrocodone-acetaminophen 10-325 mg tablet 120 30 Blackmon, Ayla 12/18/2016 12/23/2016 alprazolam 0.25 mg tablet 60 30 Dorene Cook MD 11/24/2016 11/26/2016 fentanyl 12 mcg/hr patch 10 30 Blackmon, Ayla 11/24/2016 11/24/2016 hydrocodone-acetaminophen 10-325 mg tablet 120 30 Blackmon, Ayla 10/15/2016 10/17/2016 alprazolam 0.25 mg tablet 60 30 Yair Naylor W, () 10/14/2016 10/15/2016 fentanyl 12 mcg/hr patch 10 31 Blackmon, Ayla 10/14/2016 10/15/2016 hydrocodone-acetaminophen 10-325 mg tablet 120 30 Blackmon, Ayla 09/15/2016 09/16/2016 alprazolam 0.25 mg tablet 60 30 Dorene Cook MD 09/10/2016 09/11/2016 hydrocodone-acetaminophen 10-325 mg tablet 120 30 Blackmon, Ayla 09/10/2016 09/11/2016 fentanyl 12 mcg/hr patch 10 30 Blackmon, Ayla 08/13/2016 08/14/2016 alprazolam 0.25 mg tablet 60 30 Dorene Cook MD 07/23/2016 07/24/2016 hydrocodone-acetaminophen 10-325 mg tablet 120 30 Blackmon, Ayla 07/23/2016 07/24/2016 fentanyl 12 mcg/hr patch 10 30 Blackmon, Ayla 06/19/2016 06/21/2016 fentanyl 12 mcg/hr patch 10 30 Blackmon, Ayla 06/19/2016 06/21/2016 hydrocodone-acetaminophen 10-325 mg tablet 120 30 Ayla Blackmon Patient Name: Cary Contreras Date: 1930 Address: [address] [place] [address] Sex: Female Rx Written Rx Dispensed Drug Quantity Days Supply Prescriber Name 08/01/2016 08/01/2016 fentanyl 12 mcg/hr patch 6 18 Cheung, Polina Roxy ([employer]) 07/25/2016 07/25/2016 lorazepam 0.5 mg tablet 12 6 Cheung, Polina Roxy ([employer]) 07/24/2016 07/24/2016 hydrocodone-acetaminophen 5-325 tablet 56 14 Cheung, Polina Roxy ([employer]) * - Drugs marked with an asterisk are compound drugs. If the compound drug is made up of more than one controlled substance, then each controlled substance will be a separate row in the"
[2017-06-11] MEDS: fentaNYL PATCH 12 MCG/HR TRANSDERM SCH (01:55)
[2017-06-11] MEDS: fentaNYL Patch Check Q Shift 1 NOTE SCH ×2 (02:01→07:13)
[2017-06-11] MEDS: Tiotropium CAP.INH* CAP.INH/18 MCG (USE ORDER SET !) INH SCH (08:23)
[2017-06-11] MEDS: Mometasone/Formoter 200/5 MDI INH SCH (08:23)
[2017-06-11 09:46] VITALS: BP 114/47
[2017-06-11] MEDS: Torsemide TAB* 20 MG PO SCH (09:54)
[2017-06-11] MEDS: Metoprolol Tartrate TAB* 25 MG PO SCH (09:54)
[2017-06-11] MEDS: guaiFENesin ER TAB 600 MG PO SCH (09:55)
[2017-06-11] MEDS: Gabapentin CAP(*) 100 MG PO SCH (09:55)
[2017-06-11] MEDS: predniSONE TAB* 10 MG PO SCH (09:56)
[2017-06-11] MEDS: ALPRAZolam TAB* 0.25 MG PO SCH ×2 (09:57→15:41)
--- NOTE | 2017-06-11 11:25 | DS ---
CC: Dr. Abernathy * DISCHARGE SUMMARY: DATE OF ADMISSION: 05/25/17 DATE OF DISCHARGE: 06/10/17 HISTORY OF PRESENT ILLNESS: This 86-year-old woman presented with shortness of breath and fatigue. The history is detailed in the dictated admission note. She has a history of advanced COPD as well as chronic kidney disease. The patient had a right lower lobe infiltrate and was started on ceftriaxone and azithromycin in the emergency room, she was then changed to piperacillin tazobactam. She was given glucocorticoids in the emergency room, but was not continued on steroids in the hospital. She then improved and I believe reached her baseline at the end of her hospital stay. She had physical therapy and was able to walk 40 feet with a walker without any assistance. She did get short of breath, but this was felt to be adequate function for her and she was discharged from physical therapy. She developed atrial fibrillation in the hospital. She had a CHADS VASc2 score of 5. She was started on warfarin. Her INR did climb steadily for a week after starting the warfarin. On the day of discharge, her INR was 3.68. Her warfarin dose was decreased from 4 mg to 3 mg per day. Her kidney disease stabilized. Her blood pressure was little low for a period of time in the ICU and her lisinopril was stopped. She did get some prednisone in the hospital. This will be tapered off rapidly at home. FINAL DIAGNOSES: 1. Acute on chronic respiratory failure with hypoxia, possible pneumonia, bilateral pleural effusions. 2. Atrial fibrillation. 3. Chronic kidney disease. 4. Hypertension. 5. Chronic obstructive pulmonary disease. DISCHARGE MEDICATIONS: 1. Acetaminophen 650 mg every 6 hours p.r.n. 2. Albuterol 2.5 mg by nebulizer every 4 hours p.r.n. 3. Morphine oral concentrate 5 mg every 2 hours sublingual p.r.n. 4. Prednisone 10 mg taper from 3 to 0 over 3 days. 5. Metoprolol tartrate 12.5 mg every 12 hours. 6. Fluticasone/salmeterol 250/50 one puff b.i.d. 7. Triamcinolone 0.1% cream b.i.d. p.r.n. 8. Gabapentin 100 mg b.i.d. 9. Ipratropium 0.5 mg by nebulizer p.r.n. The fluticasone/salmeterol or Advair will require prior authorization. [id number]/[facility] #: [id number] [facility]
--- NOTE | 2017-06-11 12:30 | PN ---
Subjective Date of Service: 06/11/17 Interval History: Patient seen and examined at bedside. Denies fever, chills, chest discomfort, N/ V/D. Pt states that she continues to have shortness of breath, but it is improving. Family History: Unchanged from Admission Social History: Unchanged from Admission Past Medical History: Unchanged from Admission Objective Active Medications: Acetaminophen (Tylenol Tab*) 650 mg PO Q6H PRN Reason: FEVER Albuterol (Ventolin 2.5 Mg/3 Ml Neb.Shahrzad*) 2.5 mg INH Q4H PRN Reason: SOB/ WHEEZING Alprazolam (Xanax Tab*) 0.25 mg PO 0800,1400,2100 [facility] Alprazolam (Xanax Tab*) 0.25 mg PO BID PRN Reason: ANXIETY Fentanyl (Duragesic Patch 12 Mcg/Hr *) 12 mcg TRANSDERM Q72H [facility] Gabapentin (Neurontin Cap(*)) 100 mg PO BID [facility] Gabapentin (Neurontin Cap(*)) 200 mg PO BEDTIME [facility] Guaifenesin (Mucinex*) 600 mg PO BID [facility] Magnesium Hydroxide (Milk Of Magnesia Liq*) 30 ml PO Q6H PRN Reason: DYSPEPSIA Metoprolol Tartrate (Lopressor Tab*) 12.5 mg PO Q12HR [facility] Mometasone Furoate/Formoterol Fumar (Dulera 200/5 Mdi*) 2 puff INH BID [facility] Morphine Sulfate (Morphine Oral Concentrate*) 5 mg SL Q2H PRN Reason: PAIN Nystatin (Nystatin Oint*) 1 applic TOPICAL TID PRN Reason: RASH Pharmacy Profile Note (Fentanyl Patch Check Q Shift) 1 note N/A 0700,1900 [facility] Prednisone (Deltasone Tab*) 10 mg PO DAILY [facility] Tiotropium [place] (Spiriva Cap.Inh*) 1 cap INH DAILY [facility] Torsemide (Demadex*) 40 mg PO DAILY [facility] Triamcinolone Acetonide (Triamcinolone 0.025% Oint *) 1 applic TOPICAL BID PRN Reason: RASH Warfarin Sodium (Coumadin Tab(*)) 3 mg PO DAILY@1700 [facility] Vital Signs - 8 hr 06/11/17 06/11/17 06/11/17 07:37 08:26 09:55 Temperature 97.9 F Pulse Rate 71 68 Respiratory 20 20 16 Rate Blood Pressure 114/47 (mmHg) O2 Sat by Pulse 100 93 Oximetry 06/11/17 06/11/17 06/11/17 09:57 10:00 12:15 Temperature Pulse Rate Respiratory 16 16 20 Rate Blood Pressure (mmHg) O2 Sat by Pulse Oximetry Oxygen Devices in Use Now: Nasal Cannula - 3L Appearance: NAD, sitting up in a chair Respiratory: Symmetrical Chest Expansion and Respiratory Effort, - - Rhnochi bilateral that improve with cough Cardiovascular: NL Sounds; No Murmurs; No JVD, RRR Abdominal: NL Sounds; No Tenderness; No Distention Extremities: - - Mild bilateral LE edema Neurological: Alert and Oriented x 3 Lines/Tubes/Other Access: Clean, Dry and Intact Peripheral IV - site benign Result Diagrams: 06/08/17 05:49 06/10/17 05:00 Microbiology and Other Data: Microbiology 05/25/17 21:00 Sputum Expectorated Gram Stain - Final 05/25/17 21:00 Sputum Expectorated Sputum Culture - Final Branhamella Catarrhalis Normal Bri 05/26/17 03:45 Urine Urine Culture - Final No Growth (<1,000 CFU/mL) Diagnostic Imagin06/05/17 1459 - CHEST AP PORTABLE: IMPRESSION: Chest x-ray findings are most consistent with cardiogenic pulmonary edema with interval development of bibasilar pleural effusions, larger on the right. Assess/Plan/Problems-Billing Assessment: Ms. 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 Required vapotherm in ICU during stay, now on NC. Course complicated by new onset Afib (rate controlled) now on coumadin, remains short of breath at rest. - Patient Problems (1) Acute and chronic respiratory failure with hypoxia Code(s): J96.21 - ACUTE AND CHRONIC RESPIRATORY FAILURE WITH HYPOXIA SNOMED Code(s): 96798236 Comment: - Now with b/l pleural effusions, which are also contributing in addition to pneumonia and copd at admission - Last dose of IV furosemide 4/2 in PM, started po torsemide 40 mg daily 06/09. - She has increased work of breathing, is on her home O2 requirement (2-3L O2) - PT was not interested in palliative care. - Reduced prednisone to 10 mg daily starting 06/09, duonebs standing. (2) Pneumonia Code(s): J18.9 - PNEUMONIA, UNSPECIFIED ORGANISM SNOMED Code(s): 438820239 Comment: - Now afebrile and mild leukocytosis. - She has now returned to her baseline oxygen needs - Completed course of ABX. (3) Afib Code(s): I48.91 - UNSPECIFIED ATRIAL FIBRILLATION SNOMED Code(s): 08090248 Comment: - New onset this admission. In NSR on 06/08. - CHADsVASc2 = 5 - INR therapeutic 06/08. - Continue warfarin. (4) CKD (chronic kidney disease) Code(s): N18.9 - CHRONIC KIDNEY DISEASE, UNSPECIFIED SNOMED Code(s): 521934720 Comment: - Acute on chronic kidney injury. - Improving (5) COPD (chronic obstructive pulmonary disease) Code(s): J44.9 - CHRONIC OBSTRUCTIVE PULMONARY DISEASE, UNSPECIFIED SNOMED Code(s): 88856495 Comment: - Duoneb q6 round the clock - NC 3L O2 - Reduced prednisone to 10 mg daily starting 06/09. adding spiriva, adding dulera. was on just prn inhalers at home. former smoker (6) GERD (gastroesophageal reflux disease) Code(s): K21.9 - GASTRO-ESOPHAGEAL REFLUX DISEASE WITHOUT ESOPHAGITIS SNOMED Code(s): 003369252 Comment: - Continue omeprazole. (7) HTN (hypertension) Code(s): I10 - ESSENTIAL (PRIMARY) HYPERTENSION SNOMED Code(s): 69257018 Comment: - SBP 80-110's - Continue to hold lisinopril (8) Osteoarthritis Code(s): M19.90 - UNSPECIFIED OSTEOARTHRITIS, UNSPECIFIED SITE SNOMED Code(s) : 028132508 Comment: - Continue Tylenol (9) Restless legs syndrome (RLS) Comment: Continue gabapentin. (10) DVT prophylaxis Code(s): IXW8039 - SNOMED Code(s): 321860420 Comment: - Continue warfarin (11) Full code status Code(s): Z78.9 - OTHER SPECIFIED HEALTH STATUS SNOMED Code(s): 604947345 Status and Disposition: Inpatient. Stable for discharge to [facility] today.
--- NOTE | 2017-06-11 12:49 | DS ---
CC: [facility]; Dr. Dorene Abernathy* ADDENDUM TO DISCHARGE SUMMARY BY DR. PAULINE TRIVEDI ON 06/10/2017 DATE OF ADMISSION: 05/25/2017. DATE OF DISCHARGE TO [facility]: 06/11/2017. AGE: 86. ATTENDING PHYSICIAN: Dr. Tanna Segovia (dictated by Juanita Gordon , SAMIRA). HOSPITAL COURSE: Please see the previously dictated discharge summary by Dr. Alfred Trivedi dictated on 06/10/17. It has been decided that the patient would benefit from rehab. She has been offered a bed at [facility]. Ms. Contreras is stable for discharge to [facility] today. Vital Signs are are follows: DISCHARGE PLAN: Please do a follow-up INR on June 15. It was felt that the patient needed rehab and she has agreed to discharge to [facility]. Please have physical therapy and occupational therapy evaluate the patient and continue treatment as needed. The patient should return to the emergency room for any chest pain or shortness of breath. This is a summarized report of a complex medical history and hospital stay for further details please the entire medical record. Time for this discharge was 30 minutes and greater than half of the was spent with the patient and her daughter discussing discharge plans and instructions. Condition on discharge is stable. Reviewed by BELLA REYNA 06/13/17 1717 [id number]/[facility] #: [id number] MTDD
== END 2017-06-11 16:30 | DRG 871 ==
LOC: ED 14:47 → MEDTELE 18:04 → ICU 05-27 18:35 → MEDTELE 05-31 08:22 → MED 06-10 21:23
PROVIDERS: ADMIT Hospitalist; ATTEND Internal Medicine
DX: A41.9 Sepsis, unspecified organism (principal); J18.9 Pneumonia, unspecified organism; J96.21 Acute and chronic respiratory failure with hypoxia; I13.0 Hypertensive heart and chronic kidney disease with heart failure and stage 1 through stage 4 chronic kidney disease, or unspecified chronic kidney disease; I50.32 Chronic diastolic (congestive) heart failure; J44.0 Chronic obstructive pulmonary disease with (acute) lower respiratory infection; I48.91 Unspecified atrial fibrillation; G89.29 Other chronic pain; E78.5 Hyperlipidemia, unspecified; G25.81 Restless legs syndrome; N18.3 Chronic kidney disease, stage 3 (moderate); E11.22 Type 2 diabetes mellitus with diabetic chronic kidney disease; K21.9 Gastro-esophageal reflux disease without esophagitis; M19.90 Unspecified osteoarthritis, unspecified site; M81.0 Age-related osteoporosis without current pathological fracture; M41.9 Scoliosis, unspecified; Z98.41 Cataract extraction status, right eye; Z90.710 Acquired absence of both cervix and uterus; Z80.3 Family history of malignant neoplasm of breast; Z88.5 Allergy status to narcotic agent; Z88.2 Allergy status to sulfonamides; Z87.891 Personal history of nicotine dependence; Z85.828 Personal history of other malignant neoplasm of skin; Z99.81 Dependence on supplemental oxygen
CPT/HCPCS: 1036F; 36415; 36600; 71045; 80048; 80053; 81003; 81015; 82570; 82728; 82803; 83540; 83550; 83605; 83735; 83880; 84100; 84132; 84443; 84484; 84540; 85025; 85027; 85610; 87070; 87077; 87086; 87185; 87205; 93005; 93306; 93922; 94640; 94760; 99211; 99213; 99283; A9270-GY; G0463; G8427; G8730; G8978-GP-CI; G8978-GP-CK; G8978-GP-CL; G8979-GP-CI; G8979-GP-CJ; G8980-GP-CI; J0456; J0692; J0696; J1644; J1940; J2543; J2930; J3370; J3475; J7512